=== PATIENT | female | born 1985 | race Hispanic/Latino ===

== ENCOUNTER 2019-01-22 19:31 | Emergency (ER) | payer SELFPAY ==
--- OUTSIDE RECORDS SUMMARY | 2019-01-22 19:33 | XMS REPORT ---
:1985 [facility] Address [address] [place] [address] Dr. Patel [address] [place] [address] Care Team Providers Name Role Phone Unavailable Unavailable Unavailable Problems This patient has no known problems. Allergies, Adverse Reactions, Alerts This patient has no known allergies or adverse reactions. Medications This patient has no known medications.
[2019-01-22 21:54] LABS: Absolute Lymphocytes (CBC) 1.1 K/uL (0.7-4.9); Absolute Monocytes 0.6 K/uL (0.1-1.3); Absolute Neutrophil 8.3 K/uL (1.8-8.0); Basophils % 0.4 % (0-1.3); Eosinophils % 0.3 % (0-4.4); Hematocrit 42.5 % (36.0-45.0); Lymphocytes % 10.6 % (15.3-44.8); MPV 9.8 fL (7.6-11.3); Monocytes % 6.2 % (3.3-12.3)
[2019-01-22] MEDS ORDERED: NA CHLORIDE 0.9% 1,000 ML ONE (22:01)
[2019-01-22 22:06] LABS: Urine Blood 1+ (NEG); Urine Glucose NEGATIVE (NEG); Urine Protein TRACE (NEG); Urine Specific Gravity 1.025 (1.005-1.030); Urine pH 5.5 (5.0-7.0)
[2019-01-22 22:10] LABS: Potassium 3.5 mmol/L (3.5-5.1)
[2019-01-22 22:54] LABS: Urine Bacteria 20-50 /HPF (<20); Urine Culture Reflex Order REFLEXED; Urine Mucus MOD /HPF (NONE SEEN)
--- NOTE | 2019-01-22 23:16 | EDPHYS ---
Physician Documentation [facility] Name: Tiffanie Goldman Age: 33 yrs Sex: Female : 1985 Arrival Date: 01/22/2019 Time: 19:36 Bed 5 Private MD: ED Physician Mk Griffin HPI: 01/23 01:07 This 33 yrs old Female presents to ER via Ambulatory with complaints of Flank kb Pain, Nausea, Pain in back of head. 01:07 The patient complains of pain in the left flank. The pain does not radiate. Modifying kb factors: The symptoms are alleviated by nothing. the symptoms are aggravated by nothing. 01:07 Onset: The symptoms/episode began/occurred yesterday. Associated signs and symptoms: kb Pertinent positives: dysuria. Severity of pain: At its worst the pain was moderate in the emergency department the pain is unchanged. The patient has not experienced similar symptoms in the past. The patient has not recently seen a physician. 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 - Social history:: Smoking status: Patient/guardian denies using tobacco. - Ebola Screening: : Patient denies travel to an Ebola-affected area in the 21 days before illness onset. ROS: 01/23 01:05 ENT: Negative for injury, pain, and discharge, Neck: Negative for injury, pain, and kb swelling, Cardiovascular: Negative for chest pain, palpitations, and edema, Respiratory: Negative for shortness of breath, cough, wheezing, and pleuritic chest pain, Abdomen/GI: Negative for abdominal pain, nausea, vomiting, diarrhea, and constipation, MS/Extremity: Negative for injury and deformity, Skin: Negative for injury, rash, and discoloration, Neuro: Negative for headache, weakness, numbness, tingling, and seizure. Constitutional: Positive for body aches, malaise. : Positive for urinary symptoms, flank pain, burning with urination. Exam: 01:06 Constitutional: This is a well developed, well nourished patient who is awake, alert, kb and in no acute distress. Head/Face: Normocephalic, atraumatic. ENT: Nares patent. No nasal discharge, no septal abnormalities noted. Tympanic membranes are normal and external auditory canals are clear. Oropharynx with no redness, swelling, or masses, exudates, or evidence of obstruction, uvula midline. Mucous membranes moist. Neck: Trachea midline, no thyromegaly or masses palpated, and no cervical lymphadenopathy. Supple, full range of motion without nuchal rigidity, or vertebral point tenderness. No Meningismus. Chest/axilla: Normal chest wall appearance and motion. Nontender with no deformity. No lesions are appreciated. Cardiovascular: Regular rate and rhythm with a normal S1 and S2. No gallops, murmurs, or rubs. Normal PMI, no JVD. No pulse deficits. Respiratory: Lungs have equal breath sounds bilaterally, clear to auscultation and percussion. No rales, rhonchi or wheezes noted. No increased work of breathing, no retractions or nasal flaring. Abdomen/GI: Soft, non-tender, with normal bowel sounds. No distension or tympany. No guarding or rebound. No evidence of tenderness throughout. Skin: Warm, dry with normal turgor. Normal color with no rashes, no lesions, and no evidence of cellulitis. MS/ Extremity: Pulses equal, no cyanosis. Neurovascular intact. Full, normal range of motion. Neuro: Awake and alert, GCS 15, oriented to person, place, time, and situation. Cranial nerves II-XII grossly intact. Motor strength 5/5 in all extremities. Sensory grossly intact. Cerebellar exam normal. Normal gait. Vital Signs: 01/22 20:04 BP 139 / 89; Pulse 118; Resp 20; Temp 98.3; Pulse Ox 99% on R/A; Weight 57.61 kg; aj1 Height 5 ft. 7 in. (170.18 cm); 22:17 BP 110 / 88; Pulse 77; Resp 18; Pulse Ox 100% on R/A; tl2 23:13 BP 110 / 76; Pulse 82; Resp 18; Pulse Ox 100% on R/A; tl2 23:39 Temp 98.4(O); Pain 0/10; tl1 20:04 Body Mass Index 19.89 (57.61 kg, 170.18 cm) aj1 MDM: 21:31 Patient medically screened. kb 01/23 01:06 Data reviewed: vital signs, nurses notes. Data interpreted: Pulse oximetry: on room air kb is 100 %. Interpretation: normal. 01:06 Counseling: I had a detailed discussion with the patient and/or guardian regarding: the kb historical points, exam findings, and any diagnostic results supporting the discharge/admit diagnosis, lab results, the need for outpatient follow up, a family practitioner, to return to the emergency department if symptoms worsen or persist or if there are any questions or concerns that arise at home. 01/22 21:40 Order name: CBC with Diff; Complete Time: 22:05 kb 01/22 21:40 Order name: Basic Metabolic Panel; Complete Time: 22:13 kb 01/22 21:40 Order name: [place] Screen Profile; Complete Time: 22:13 kb 01/22 21:40 Order name: Flu; Complete Time: 22:13 kb 01/22 22:01 Order name: Urine Dipstick--Ancillary (enter results); Complete Time: 22:07 mw2 01/22 22:01 Order name: Urine --Ancillary (enter results); Complete Time: 22:07 mw2 01/22 21:40 Order name: IV Start; Complete Time: 21:51 kb 01/22 22:13 Order name: Urine Microscopic Only; Complete Time: 22:55 kb 01/22 22:56 Order name: Urine Culture EDMS Administered Medications: 01/22 21:51 Drug: NS 0.9% 1000 ml Route: IV; Rate: 1000 ml; Site: right antecubital; tl1 23:16 Follow up: IV Status: Completed infusion tl1 23:19 Drug: Macrobid 100 mg Route: PO; tl1 23:41 Follow up: Response: No adverse reaction; Medication administered at discharge. tl1 Disposition: 01/23 02:10 Co-signature as Attending Physician, Mk Griffin MD. Disposition: 01/22/19 23:15 Discharged to Home. Impression: Urinary tract infection, site not specified. - Condition is Stable. - Discharge Instructions: Urinary Tract Infection, Adult, [id number]. - Prescriptions for Macrobid 100 mg Oral Capsule - take 1 capsule by ORAL route every 12 hours for 7 days; 14 capsule. Zofran 4 mg Oral Tablet - take 1 tablet by ORAL route every 6 hours As needed; 20 tablet. - Medication Reconciliation Form, Thank You Letter, Antibiotic Education, Prescription Opioid Use form. - Follow up: Emergency Department; When: As needed; Reason: Worsening of condition. Follow up: Private Physician; When: 2 - 3 days; Reason: Recheck today's complaints, Continuance of care, Re-evaluation by your physician. Signatures: Dispatcher [employer] EDAnne Odell, ALLISON CHOU-Viola Stanford, RN RN aj1 Beatriz Diamond RN RN tl1 Mk Griffin MD MD gs Corrections: (The following items were deleted from the chart) 01/22 23:42 23:15 01/22/2019 23:15 Discharged to Home. Impression: Urinary tract infection, site tl1 not specified. Condition is Stable. Forms are Medication Reconciliation Form, Thank You Letter, Antibiotic Education, Prescription Opioid Use. Follow up: Emergency Department; When: As needed; Reason: Worsening of condition. Follow up: Private Physician; When: 2 - 3 days; Reason: Recheck today's complaints, Continuance of care, Re-evaluation by your physician. cody 01/23 01:07 01:05 : Positive for urinary symptoms, burning with urination, [facility]
--- NOTE | 2019-01-22 23:16 | ER ---
Nurse's Notes [facility] Name: Tiffanie Goldman Age: 33 yrs Sex: Female : 1985 Arrival Date: 01/22/2019 Time: 19:36 Bed 5 Private MD: Diagnosis: Urinary tract infection, site not specified Presentation: 01/22 20:01 Presenting complaint: Patient states: "I have a sharp pain in the back of my neck and aj1 my shoulders feel heavy and I feel weak, and I have a small pain on my left side. It started yesterday but I was sitting out a ticket" Denies V/D/ Reports nausea. Denies fever. Patient also reports that her chest "feels weird" BP sitting 139/899 Pulse 118 BP standing 122/81 Pulse 136. Transition of care: patient was not received from another setting of care. Onset of symptoms was January 21, 2019. Risk Assessment: Do you want to hurt yourself or someone else? Patient reports no desire to harm self or others. Initial Sepsis Screen: Does the patient meet any 2 criteria? No. Patient's initial sepsis screen is negative. Does the patient have a suspected source of infection? No. Patient's initial sepsis screen is negative. Care prior to arrival: None. 20:01 Method Of Arrival: Ambulatory aj1 20:01 Acuity: ISH 3 aj1 Triage Assessment: 20:04 General: Appears in no apparent distress. uncomfortable, Behavior is calm, cooperative, aj1 appropriate for age. Pain: Complains of pain in left trapezius, right trapezius, posterior aspect of left lateral abdomen and neck Pain currently is 8 out of 10 on a pain scale. Neuro: Level of Consciousness is awake, alert, obeys commands, Oriented to person, place, time, situation. Cardiovascular: Denies chest pain, but states that her chest feels weird Patient's skin is warm and dry. Respiratory: Airway is patent Respiratory effort is even, unlabored, Respiratory pattern is regular, symmetrical. GI: Reports nausea, Patient currently denies diarrhea, vomiting. [employer] FORMER: 20:04 LMP 01/12/2019 aj1 Historical: - Allergies: 20:04 No Known Allergies; aj1 - Home Meds: 20:04 None [Active]; aj1 - PMHx: 20:04 None; aj1 - PSHx: 20:04 None; aj1 - Immunization history:: Flu vaccine is not up to date. - Social history:: Smoking status: Patient/guardian denies using tobacco. - Ebola Screening: : Patient denies travel to an Ebola-affected area in the 21 days before illness onset. Screenin:56 Abuse screen: Denies threats or abuse. Denies injuries from another. Nutritional tl1 screening: No deficits noted. Tuberculosis screening: No symptoms or risk factors identified. Fall Risk IV access (20 points). Assessment: 22:54 General: Appears in no apparent distress. Behavior is calm, cooperative, appropriate tl1 for age. Pain: Denies pain. Neuro: No deficits noted. Level of Consciousness is awake, alert, obeys commands. Neuro: Reports headache occipital area. Cardiovascular: No deficits noted. Respiratory: Airway is patent Trachea midline Respiratory effort is even, unlabored, Breath sounds are clear bilaterally. GI: Abdomen is flat, Bowel sounds present X 4 quads. Abd is soft and non tender X 4 quads. Reports nausea. 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 EENT: No signs and/or symptoms were reported regarding the EENT system. Derm: No signs and/or symptoms reported regarding the dermatologic system. 23:39 Reassessment: Patient and/or family updated on plan of care and expected duration. Pain tl1 level reassessed. Patient is alert, oriented x 3, equal unlabored respirations, skin warm/dry/pink. Patient states feeling better. Patient states symptoms have improved. Vital Signs: 20:04 BP 139 / 89; Pulse 118; Resp 20; Temp 98.3; Pulse Ox 99% on R/A; Weight 57.61 kg; aj1 Height 5 ft. 7 in. (170.18 cm); 22:17 BP 110 / 88; Pulse 77; Resp 18; Pulse Ox 100% on R/A; tl2 23:13 BP 110 / 76; Pulse 82; Resp 18; Pulse Ox 100% on R/A; tl2 23:39 Temp 98.4(O); Pain 0/10; tl1 20:04 Body Mass Index 19.89 (57.61 kg, 170.18 cm) aj1 ED Course: 19:36 Patient arrived in ED. es 20:04 Triage completed. aj1 20:04 Arm band placed on. aj1 20:10 Placed in gown. Bed in low position. Call light in reach. Side rails up X 1. tl1 21:29 Beatriz Diamond, RN is Primary Nurse. tl1 21:30 [facility] Vegas [facility]C [facility]. kb 21:30 Mk Griffin MD is Attending Physician. kb 21:51 No provider procedures requiring assistance completed. Inserted saline lock: 22 gauge tl1 in right antecubital area, using aseptic technique. Blood collected. 23:40 IV discontinued, intact, bleeding controlled, No redness/swelling at site. Pressure tl1 dressing applied. Administered Medications: 21:51 Drug: NS 0.9% 1000 ml Route: IV; Rate: 1000 ml; Site: right antecubital; tl1 23:16 Follow up: IV Status: Completed infusion tl1 23:19 Drug: Macrobid 100 mg Route: PO; tl1 23:41 Follow up: Response: No adverse reaction; Medication administered at discharge. tl1 Outcome: 23:15 Discharge ordered by . kb 23:40 Discharged to home ambulatory, with family. tl1 23:40 Condition: good 23:40 Discharge instructions given to patient, family, Instructed on discharge instructions, follow up and referral plans. medication usage, Demonstrated understanding of instructions, follow-up care, medications, Prescriptions given X 2. 23:42 Patient left the ED. tl1 Signatures: Anne Vegas FNP-C FNP-Ckb Johnson, Angela, RN RN aj1 Claudia Martinez Tonya, RN RN tl1 Kaitlynn Duke RN RN tl2 Corrections: (The following items were deleted from the chart) 20:13 20:01 Presenting complaint: Patient states: "I have a sharp pain in the back of my neck aj1 and my shoulders feel heavy and I feel weak, and I have a small pain on my left side. It started yesterday but I was sitting out a ticket" Denies V/D/ Reports nausea. Denies fever. Patient also reports that her chest "feels weird" aj1
[2019-01-22] MEDS ORDERED: NITROFURAN MACRO 100 MG CAP PO ONE (23:30)
--- NOTE | 2019-01-23 08:35 | EKG ---
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
== END 2019-01-22 23:42 | disposition home or self-care (01) ==
LOC: ER 19:31
DX: N39.0 Urinary tract infection, site not specified (principal)
CPT/HCPCS: 36415; 80048; 81003; 81015; 81025; 85025; 86308; 87077; 87086; 87088; 87186; 87804; 93005; 96360; 99284; J7030

== ENCOUNTER 2019-08-25 10:07 | Emergency (ER) | payer SELFPAY ==
--- OUTSIDE RECORDS SUMMARY | 2019-08-25 10:09 | XMS REPORT ---
:1985 [facility] Address [address] [place] [address] Dr. Patel [address] [place] [id number] Care Team Providers Name Role Phone Unavailable Unavailable Unavailable Problems This patient has no known problems. Allergies, Adverse Reactions, Alerts This patient has no known allergies or adverse reactions. Medications This patient has no known medications.
--- NOTE | 2019-08-25 12:02 | ER ---
Nurse's Notes [facility] Name: Tiffanie Goldman Age: 34 yrs Sex: Female : 1985 Arrival Date: 08/25/2019 Time: 10:11 Bed 12 Private MD: Diagnosis: Acute upper respiratory infection, unspecified Presentation: 08/25 10:30 Presenting complaint: Patient states: Fever cough and congestion for the past week. aj1 Reports symptoms are worse at night. Transition of care: patient was not received from another setting of care. Onset of symptoms was 2018. Risk Assessment: Do you want to hurt yourself or someone else? Patient reports no desire to harm self or others. Initial Sepsis Screen: Does the patient meet any 2 criteria? No. Patient's initial sepsis screen is negative. Does the patient have a suspected source of infection? No. Patient's initial sepsis screen is negative. Care prior to arrival: None. 10:30 Method Of Arrival: Ambulatory aj1 10:30 Acuity: ISH 4 aj1 Triage Assessment: 10:30 General: Appears in no apparent distress. comfortable, Behavior is calm, cooperative, aj1 appropriate for age. Pain: Denies pain. Neuro: Level of Consciousness is awake, alert, obeys commands. Cardiovascular: Patient's skin is warm and dry. Respiratory: Airway is patent Respiratory effort is even, unlabored, Respiratory pattern is regular, symmetrical. Historical: - Allergies: 10:30 No Known Allergies; aj1 - Home Meds: 10:30 None [Active]; aj1 - PMHx: 10:30 None; aj1 - PSHx: 10:30 None; aj1 - Immunization history:: Flu vaccine is not up to date. - Social history:: Smoking status: Patient uses tobacco products, denies chronic smoking, but will smoke occasionally. - Ebola Screening: : Patient denies travel to an Ebola-affected area in the 21 days before illness onset. - Family history:: not pertinent. Vital Signs: 10:30 BP 113 / 76; Pulse 70; Resp 16; Temp 97.9; Pulse Ox 99% on R/A; Weight 59.87 kg (R); aj1 Height 5 ft. 3 in. (160.02 cm) (R); Pain 0/10; 10:30 Body Mass Index 23.38 (59.87 kg, 160.02 cm) aj1 ED Course: 10:11 Patient arrived in ED. as 10:30 Triage completed. aj1 10:30 Arm band placed on Patient placed in waiting room, Patient notified of wait time. aj 10:43 Mark Disla MD is Attending Physician. alexandra 11:29 Rachelle Diaz, RN is Primary Nurse. ss 12:23 No provider procedures requiring assistance completed. Patient did not have IV access ss during this emergency room visit. Administered Medications: No medications were administered Outcome: 12:01 Discharge ordered by . alexandra 12:23 Discharged to home ambulatory, with family. ss 12:23 Condition: good 12:23 Discharge instructions given to patient, family, Instructed on discharge instructions, follow up and referral plans. medication usage, Demonstrated understanding of instructions, follow-up care, medications, Prescriptions given X 2. 12:24 Patient left the ED. ss Signatures: Viola Sullivan, RN RN aj1 Mark Disla MD MD cha Martinez, Amelia as Rachelle Diaz, ZINA RN ss
--- NOTE | 2019-08-25 12:03 | EDPHYS ---
Physician Documentation [facility] Name: Tiffanie Goldman Age: 34 yrs Sex: Female : 1985 Arrival Date: 08/25/2019 Time: 10:11 Bed 12 Private MD: SUKHI Physician Mark Disla HPI: 08/25 11:59 This 34 yrs old Female presents to ER via Ambulatory with complaints of Cold alexandra Symptoms. 11:59 The patient has shortness of breath at rest, with light activity. Onset: The alexandra symptoms/episode began/occurred 5 day(s) ago. Duration: The symptoms are continuous, and are steadily getting worse. The patient's shortness of breath has no apparent modifying factors. The patient or guardian reports cough, described as mild, flu symptoms, arthralgias. Modifying factors: The symptoms are alleviated by nothing. the symptoms are aggravated by nothing. Associated signs and symptoms: The patient has no apparent associated signs or symptoms. Historical: - Allergies: 10:30 No Known Allergies; aj1 - Home Meds: 10:30 None [Active]; aj1 - PMHx: 10:30 None; aj1 - PSHx: 10:30 None; aj1 - Immunization history:: Flu vaccine is not up to date. - Social history:: Smoking status: Patient uses tobacco products, denies chronic smoking, but will smoke occasionally. - Ebola Screening: : Patient denies travel to an Ebola-affected area in the 21 days before illness onset. - Family history:: not pertinent. ROS: 11:59 Constitutional: Negative for fever, chills, and weight loss, Eyes: Negative for injury, alexandra pain, redness, and discharge, ENT: Negative for injury, pain, and discharge, Neck: Negative for injury, pain, and swelling, Cardiovascular: Negative for chest pain, palpitations, and edema, Abdomen/GI: Negative for abdominal pain, nausea, vomiting, diarrhea, and constipation, Back: Negative for injury and pain, : Negative for injury, bleeding, discharge, and swelling, MS/Extremity: Negative for injury and deformity, Skin: Negative for injury, rash, and discoloration, Neuro: Negative for headache, weakness, numbness, tingling, and seizure, Psych: Negative for depression, anxiety, suicide ideation, homicidal ideation, and hallucinations, Allergy/Immunology: Negative for hives, rash, and allergies, Endocrine: Negative for neck swelling, polydipsia, polyuria, polyphagia, and marked weight changes, Hematologic/Lymphatic: Negative for swollen nodes, abnormal bleeding, and unusual bruising. 11:59 Respiratory: Positive for cough, shortness of breath, at rest. Exam: 11:59 Constitutional: This is a well developed, well nourished patient who is awake, alert, alexandra and in no acute distress. Head/Face: Normocephalic, atraumatic. Eyes: Pupils equal round and reactive to light, extra-ocular motions intact. Lids and lashes normal. Conjunctiva and sclera are non-icteric and not injected. Cornea within normal limits. Periorbital areas with no swelling, redness, or edema. ENT: Nares patent. No nasal discharge, no septal abnormalities noted. Tympanic membranes are normal and external auditory canals are clear. Oropharynx with no redness, swelling, or masses, exudates, or evidence of obstruction, uvula midline. Mucous membranes moist. Neck: Trachea midline, no thyromegaly or masses palpated, and no cervical lymphadenopathy. Supple, full range of motion without nuchal rigidity, or vertebral point tenderness. No Meningismus. Chest/axilla: Normal chest wall appearance and motion. Nontender with no deformity. No lesions are appreciated. Cardiovascular: Regular rate and rhythm with a normal S1 and S2. No gallops, murmurs, or rubs. Normal PMI, no JVD. No pulse deficits. Respiratory: Lungs have equal breath sounds bilaterally, clear to auscultation and percussion. No rales, rhonchi or wheezes noted. No increased work of breathing, no retractions or nasal flaring. Abdomen/GI: Soft, non-tender, with normal bowel sounds. No distension or tympany. No guarding or rebound. No evidence of tenderness throughout. Back: No spinal tenderness. No costovertebral tenderness. Full range of motion. Skin: Warm, dry with normal turgor. Normal color with no rashes, no lesions, and no evidence of cellulitis. MS/ Extremity: Pulses equal, no cyanosis. Neurovascular intact. Full, normal range of motion. Neuro: Awake and alert, GCS 15, oriented to person, place, time, and situation. Cranial nerves II-XII grossly intact. Motor strength 5/5 in all extremities. Sensory grossly intact. Cerebellar exam normal. Normal gait. Psych: Awake, alert, with orientation to person, place and time. Behavior, mood, and affect are within normal limits. 11:59 Musculoskeletal/extremity: DVT Exam: No signs of deep vein thrombosis. no pain, no swelling, no tenderness, negative Homans' sign noted on exam, no appreciated bluish discoloration, no erythema, no increased warmth. Vital Signs: 10:30 BP 113 / 76; Pulse 70; Resp 16; Temp 97.9; Pulse Ox 99% on R/A; Weight 59.87 kg (R); aj1 Height 5 ft. 3 in. (160.02 cm) (R); Pain 0/10; 10:30 Body Mass Index 23.38 (59.87 kg, 160.02 cm) aj1 MDM: 11:07 Patient medically screened. alexandra Administered Medications: No medications were administered Disposition: 08/25/19 12:01 Discharged to Home. Impression: Acute upper respiratory infection, unspecified. - Condition is Stable. - Discharge Instructions: Upper Respiratory Infection, Adult, Cool Mist Vaporizer, Cough, Adult. - Prescriptions for Bromfed DM 2- 30-10 mg/5 mL Oral syrup - take 10 milliliter by ORAL route every 4 hours; 150 milliliter. Zithromax Z- Juan 250 mg Oral Tablet - take 1 tablet by ORAL route as directed for 5 days Day 1 - take two (2) tablets one time. Day 2, 3, 4 , 5 take one (1) tablet once daily.; 6 tablet. - Medication Reconciliation Form, Thank You Letter, Antibiotic Education, Prescription Opioid Use form. - Follow up: Private Physician; When: 2 - 3 days; Reason: Recheck today's complaints, Continuance of care, Re-evaluation by your physician. - Problem is new. - Symptoms have improved. Signatures: Viola Sullivan RN RN aj1 Mark Disla MD MD cha Smirch, Shelby, RN RN ss Corrections: (The following items were deleted from the chart) 12:24 12:01 08/25/2019 12:01 Discharged to Home. Impression: Acute upper respiratory ss infection, unspecified. Condition is Stable. Forms are Medication Reconciliation Form, Thank You Letter, Antibiotic Education, Prescription Opioid Use. Follow up: Private Physician; When: 2 - 3 days; Reason: Recheck today's complaints, Continuance of care, Re-evaluation by your physician. Problem is new. Symptoms have improved. alexandra
[2019-08-25 12:45] VITALS: BP 113/76; TEMP 97.9; O2SAT 99
== END 2019-08-25 12:24 | disposition home or self-care (01) ==
LOC: ER 10:07
DX: J06.9 Acute upper respiratory infection, unspecified (principal); Z72.0 Tobacco use
CPT/HCPCS: 99282

== ENCOUNTER 2019-11-28 10:38 | Emergency (ER) | payer SELFPAY ==
--- OUTSIDE RECORDS SUMMARY | 2019-11-28 10:40 | XMS REPORT ---
:1985 [facility] Address [address] [place] [address] Dr. Patel [address] [place] [address] Care Team Providers Name Role Phone Unavailable Unavailable Unavailable Problems This patient has no known problems. Allergies, Adverse Reactions, Alerts This patient has no known allergies or adverse reactions. Medications This patient has no known medications.
[2019-11-28] MEDS ORDERED: ONDANSETRON 4 MG (ODT) TAB ONE (11:20)
--- NOTE | 2019-11-28 12:27 | EDPHYS ---
Physician Documentation [facility] Name: Tiffanie Goldman Age: 34 yrs Sex: Female : 1985 Arrival Date: 11/28/2019 Time: 10:41 Bed 5 Private MD: ED Physician Enrique Saleh HPI: 11/27 11:07 This 34 yrs old Female presents to ER via Ambulatory with complaints of Cough, la1 Nausea. 11:07 The patient or guardian reports cough, that is intermittent, described as mild, flu la1 symptoms, low-grade fever. Onset: The symptoms/episode began/occurred 2 day(s) ago. Severity of symptoms: At their worst the symptoms were moderate, in the emergency department the symptoms have improved. Modifying factors: The symptoms are alleviated by nothing, the symptoms are aggravated by nothing. Associated signs and symptoms: Pertinent positives: nausea. The patient has not experienced similar symptoms in the past. 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 - Social history:: Smoking status: Patient reports the use of cigarette tobacco products, denies chronic smoking, but will smoke occasionally. ROS: 11:07 Constitutional: Negative for fever, chills, and weight loss, Eyes: Negative for injury, la1 pain, redness, and discharge, ENT: Negative for injury, pain, and discharge, Neck: Negative for injury, pain, and swelling, Cardiovascular: Negative for chest pain, palpitations, and edema, Abdomen/GI: Negative for abdominal pain, nausea, vomiting, diarrhea, and constipation, Back: Negative for injury and pain, MS/Extremity: Negative for injury and deformity. 11:07 Skin: Negative for injury, rash, and discoloration, Neuro: Negative for headache, weakness, numbness, tingling, and seizure. 11:07 Respiratory: Positive for cough. Exam: 11:08 Constitutional: This is a well developed, well nourished patient who is awake, alert, la1 and in no acute distress. Head/Face: Normocephalic, atraumatic. Eyes: Pupils equal round and reactive to light, extra-ocular motions intact. ENT: Nares patent. No nasal discharge, no septal abnormalities noted. Tympanic membranes are normal and external auditory canals are clear. Oropharynx with no redness, swelling, or masses, exudates, or evidence of obstruction, uvula midline. Mucous membranes moist. Neck: Trachea midline, Chest/axilla: Normal chest wall appearance and motion. Nontender with no deformity. No lesions are appreciated. Cardiovascular: Regular rate and rhythm with a normal S1 and S2. Respiratory: Lungs have equal breath sounds bilaterally, clear to auscultation and percussion. Abdomen/GI: Soft, non-tender, with normal bowel sounds. Skin: Warm, dry with normal turgor. Normal color with no rashes, no lesions, and no evidence of cellulitis. MS/ Extremity: Pulses equal, no cyanosis. Neurovascular intact. Full, normal range of motion. Vital Signs: 10:50 BP 124 / 88; Pulse 83; Resp 16; Temp 98.2; Pulse Ox 99% ; Weight 61.23 kg; Height 5 ft. sv 3 in. (160.02 cm); Pain 0/10; 12:50 BP 103 / 82; Pulse 66; Resp 16 S; Pulse Ox 99% on R/A; jl7 10:50 Body Mass Index 23.91 (61.23 kg, 160.02 cm) sv MDM: 11:06 Patient medically screened. la1 12:26 Data reviewed: vital signs, nurses notes, lab test result(s), and as a result, I will la1 discharge patient. Data interpreted: Pulse oximetry: on room air is 99 %. Interpretation: normal. Counseling: I had a detailed discussion with the patient and/or guardian regarding: the historical points, exam findings, and any diagnostic results supporting the discharge/admit diagnosis, lab results, the need for outpatient follow up, a family practitioner, to return to the emergency department if symptoms worsen or persist or if there are any questions or concerns that arise at home. Special discussion: I discussed with the patient/guardian that the patient's current presentation does not indicate dosing of antibiotics. They should follow-up with their primary care provider and return if the symptoms persist or progress. 11/27 10:52 Order name: Flu jl7 11/27 10:52 Order name: Strep jl7 11/27 11:03 Order name: PO challenge; Complete Time: 12:44 la1 11/27 11:20 Order name: Throat Culture EDNM Administered Medications: 11:21 Drug: Zofran (Ondansetron) 4 mg Route: PO; sv 12:00 Follow up: Response: No adverse reaction; Nausea is decreased sv Disposition: 18:00 Co-signature as Attending Physician, Enrique Saleh MD I agree with the assessment and kdr plan of care. Disposition: 11/28/19 12:26 Discharged to Home. Impression: Cough, Nausea. - Condition is Stable. - Discharge Instructions: Nausea, Adult, Cough, Adult. - Prescriptions for Zofran 4 mg Oral Tablet - take 1 tablet by ORAL route every 12 hours As needed; 6 tablet. Tessalon Perles 100 mg Oral Capsule - take 1 capsule by ORAL route every 8 hours As needed; 15 capsule. - Medication Reconciliation Form, Thank You Letter form. - Follow up: Private Physician; When: 5 - 6 days; Reason: Recheck today's complaints, Re-evaluation by your physician. - Problem is new. - Symptoms have improved. Signatures: Dispatcher [employer] EDNM Rina Pires RN RN Enrique Pinto MD MD kdr Lizandro De La Garza, CYBER SECURITY ADMINISTRATOR-C CYBER SECURITY ADMINISTRATOR-Cla1 Calista Guy RN RN jl7 Corrections: (The following items were deleted from the chart) 12:51 12:26 11/28/2019 12:26 Discharged to Home. Impression: Cough; Nausea. Condition is jl7 Stable. Forms are Medication Reconciliation Form, Thank You Letter, Antibiotic Education, Prescription Opioid Use. Follow up: Private Physician; When: 5 - 6 days; Reason: Recheck today's complaints, Re-evaluation by your physician. Problem is new. Symptoms have improved. la1
--- NOTE | 2019-11-28 12:27 | ER ---
Nurse's Notes [facility] Name: Tiffanie Goldman Age: 34 yrs Sex: Female : 1985 Arrival Date: 11/28/2019 Time: 10:41 Bed 5 Private MD: Diagnosis: Cough;Nausea Presentation: 11/27 10:50 Chief complaint: Patient states: runny nose, productive cough with green sputum, chest sv pain with cough, SOB, generalized weakness, body aches x 2 days. Reports last night felt like she was shaking and sweating and felt like she was going to vomit but did not. Coronavirus screen: The patient has NOT traveled to a country currently being monitored by the [facility] within the last 14 days. Proceed with normal triage procedures. The patient has NOT had contact with any known and/or suspected case of coronavirus. Proceed with normal triage procedures. Ebola Screen: Patient negative for fever greater than or equal to 101.5 degrees Fahrenheit, and additional compatible Ebola Virus Disease symptoms Patient denies exposure to infectious person. Patient denies travel to an Ebola-affected area in the 21 days before illness onset. No symptoms or risks identified at this time. Initial Sepsis Screen: Does the patient meet any 2 criteria? No. Patient's initial sepsis screen is negative. Does the patient have a suspected source of infection? Yes: Productive cough/pneumonia. Risk Assessment: Do you want to hurt yourself or someone else? Patient reports no desire to harm self or others. 10:50 Method Of Arrival: Ambulatory sv 10:50 Acuity: ISH 3 sv 10:53 Onset of symptoms was November 26, 2019. sv Triage Assessment: 10:50 General: Appears in no apparent distress. uncomfortable, well developed, Behavior is sv calm, cooperative, appropriate for age. General: Reports fever for 2-3 days. Pain: Denies pain. EENT: Reports nasal discharge that is watery. Neuro: Level of Consciousness is awake, alert, obeys commands, Oriented to person, place, time, situation, Moves all extremities. Full function Gait is steady, Speech is normal, Reports weakness. Cardiovascular: Patient's skin is warm and dry. Respiratory: Reports cough that is productive, pain with cough Airway is patent Respiratory effort is even, unlabored, Respiratory pattern is regular, symmetrical. GI: Reports nausea. Derm: Skin is pink, warm \T\ dry. 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 - Social history:: Smoking status: Patient reports the use of cigarette tobacco products, denies chronic smoking, but will smoke occasionally. Screenin:53 Abuse screen: Denies threats or abuse. Denies injuries from another. Nutritional sv screening: No deficits noted. Tuberculosis screening: No symptoms or risk factors identified. Fall Risk None identified. Assessment: 11:21 Reassessment: Patient appears in no apparent distress at this time. No changes from sv previously documented assessment. Patient and/or family updated on plan of care and expected duration. Pain level reassessed. Patient is alert, oriented x 3, equal unlabored respirations, skin warm/dry/pink. 12:49 Reassessment: Patient appears in no apparent distress at this time. Patient and/or sv family updated on plan of care and expected duration. Pain level reassessed. Patient is alert, oriented x 3, equal unlabored respirations, skin warm/dry/pink. Patient states feeling better. Patient states symptoms have improved. Vital Signs: 10:50 BP 124 / 88; Pulse 83; Resp 16; Temp 98.2; Pulse Ox 99% ; Weight 61.23 kg; Height 5 ft. sv 3 in. (160.02 cm); Pain 0/10; 12:50 BP 103 / 82; Pulse 66; Resp 16 S; Pulse Ox 99% on R/A; jl7 10:50 Body Mass Index 23.91 (61.23 kg, 160.02 cm) sv ED Course: 10:41 Patient arrived in ED. mr 10:44 Rina Pires RN is Primary Nurse. sv 10:47 Lizandro De La Garza FNP-C is PHCP. la1 10:47 Enrique Saleh MD is Attending Physician. la1 10:52 Triage completed. sv 10:53 Arm band placed on Patient placed in an exam room, on a stretcher. sv 10:53 Patient has correct armband on for positive identification. Bed in low position. Call sv light in reach. Adult w/ patient. Pulse ox on. NIBP on. Door closed. Head of bed elevated. 10:55 Flu and/or RSV swab sent to lab. Strep swab sent to lab. sv 11:20 Throat Culture Sent. sv 12:49 No provider procedures requiring assistance completed. Patient did not have IV access jl7 during this emergency room visit. Administered Medications: 11:21 Drug: Zofran (Ondansetron) 4 mg Route: PO; sv 12:00 Follow up: Response: No adverse reaction; Nausea is decreased sv Outcome: 12:26 Discharge ordered by . yasmeen 12:49 Discharged to home ambulatory. jl7 12:49 Condition: stable 12:49 Discharge instructions given to patient, family, Instructed on discharge instructions, follow up and referral plans. medication usage, Demonstrated understanding of instructions, follow-up care, medications, Prescriptions given X 2. 12:51 Patient left the ED. jl7 Signatures: Rina Pires, ZINA IZAGUIRRE [facility] Demetria Lizandro Ricci, VP EMERGING MEDIA-C VP EMERGING MEDIA-Cla1 Calista Guy, ZINA RN [email or web address]
[2019-11-28 12:58] VITALS: TEMP 98.2; O2SAT 99
[2019-11-28 13:00] VITALS: BP 103/82
== END 2019-11-28 12:51 | disposition home or self-care (01) ==
LOC: ER 10:38
DX: R11.0 Nausea (principal); F17.210 Nicotine dependence, cigarettes, uncomplicated
CPT/HCPCS: 87070; 87081; 87804; 99284

== ENCOUNTER 2020-03-10 12:02 | Emergency (ER) | payer SELFPAY, OTHER ==
[2020-03-10] MEDS ORDERED: ONDANSETRON 4 MG (ODT) TAB ONE (12:54)
[2020-03-10 13:12] LABS: Urine Blood TRACE (NEG); Urine Glucose NEGATIVE (NEG); Urine Protein NEGATIVE (NEG); Urine Specific Gravity 1.025 (1.005-1.030); Urine pH 6.5 (5.0-7.0)
--- OUTSIDE RECORDS SUMMARY | 2020-03-10 14:30 | XMS REPORT | Continuity of Care Document ---
:1985 Author Organization [facility] t Address [address] [place] [address] Dr. Pat[address] [place] [id number] Care Team Providers Name Role Phone Unavailable Unavailable Unavailable Problems This patient has no known problems. Allergies, Adverse Reactions, Alerts This patient has no known allergies or adverse reactions. Medications This patient has no known medications. Procedures This patient has no known procedures. Results This patient has no known results.
--- NOTE | 2020-03-10 14:44 | ER ---
Nurse's Notes [facility] Name: Tiffanie Goldman Age: 34 yrs Sex: Female : 1985 Arrival Date: 03/10/2020 Time: 12:05 Bed 15 Private MD: None, None Diagnosis: Nausea with vomiting, unspecified Presentation: 03/10 12:29 Chief complaint: Patient states: vomiting and chills that began last night. PT reports ss she was in [facility] ER with her niece last night. Coronavirus screen: Surgical mask placed on patient. Patient moved to private room, placed in contact and droplet isolation with eye protection until further assessment. Patient denies a cough. Patient denies shortness of breath or difficulty breathing. Patient denies measured and/or subjective temperature greater than 100.4F prior to today's visit. Patient denies travel on a cruise ship or to a country the [facility] currently lists as an affected area. Patient denies contact with known and/or suspected case of COVID-19. Ebola Screen: Patient denies exposure to infectious person. Patient denies travel to an Ebola-affected area in the 21 days before illness onset. Initial Sepsis Screen: Does the patient meet any 2 criteria? No. Patient's initial sepsis screen is negative. Does the patient have a suspected source of infection? No. Patient's initial sepsis screen is negative. Risk Assessment: Do you want to hurt yourself or someone else? Patient reports no desire to harm self or others. Onset of symptoms was March 10, 2020. 12:29 Method Of Arrival: Ambulatory ss 12:29 Acuity: ISH 3 ss Historical: - Allergies: 12:32 No Known Allergies; ss - Home Meds: 12:32 None [Active]; ss - PMHx: 12:32 None; ss - PSHx: 12:32 None; ss - Immunization history:: Adult Immunizations up to date. - Social history:: Smoking status: Patient denies any tobacco usage or history of. - Family history:: not pertinent. - Hospitalizations: : No recent hospitalization is reported. Screenin:08 Abuse screen: Denies threats or abuse. Nutritional screening: No deficits noted. ll1 Tuberculosis screening: No symptoms or risk factors identified. Fall Risk None identified. Total Wright Fall Scale indicates No Risk (0-24 pts). Assessment: 13:06 General: Appears in no apparent distress. Behavior is calm, cooperative. Pain: Denies ll1 pain. Neuro: No deficits noted. Cardiovascular: No deficits noted. Respiratory: No deficits noted. GI: Abdomen is flat, Bowel sounds present X 4 quads. Abd is soft and non tender X 4 quads. Reports cramping, nausea, vomiting, chills/sweating. 14:06 Reassessment: Patient and/or family updated on plan of care and expected duration. Pain ah level reassessed. Patient is alert, oriented x 3, equal unlabored respirations, skin warm/dry/pink. Patient states feeling better. 15:02 Reassessment: Discharge instructions given at this time. Educated on prescription. Pt ah voiced understanding. Advised to quarantine until Pt receive test results. Vital Signs: 12:29 BP 111 / 94; Pulse 73; Resp 14; Pulse Ox 100% on R/A; Weight 64.86 kg; Height 5 ft. 5 ss in. (165.10 cm); Pain 0/10; 12:29 Body Mass Index 23.80 (64.86 kg, 165.10 cm) ED Course: 12:05 Patient arrived in ED. mr 12:05 None, None is Private Physician. mr 12:27 Jamie Mccormick, RN is Primary Nurse. ll1 12:31 Edvin Young MD is Attending Physician. rn 12:32 Triage completed. ss 12:32 Arm band placed on right wrist. ss 13:08 Patient has correct armband on for positive identification. Bed in low position. Call ll1 light in reach. Side rails up X 1. 15:03 No provider procedures requiring assistance completed. Patient did not have IV access during this emergency room visit. Administered Medications: 12:58 Drug: Zofran (Ondansetron) 4 mg Route: PO; ll1 14:07 Follow up: Response: No adverse reaction Outcome: 14:44 Discharge ordered by . rn 15:03 Discharged to home ambulatory. 15:03 Condition: good 15:03 Discharge instructions given to patient, Instructed on discharge instructions, follow up and referral plans. Demonstrated understanding of instructions, follow-up care, medications, Prescriptions given X 1. 15:04 Patient left the ED. Addendum: 03/12/2020 11:28 Addendum: Other Attempted to contact pt regarding negative COVID - 19 swab results. d m5 left voice mail. 03/14/2020 11:58 Addendum: Other attempted to contact pt regarding negative COVID-19 swab results. Left d m5 voice mail. Signatures: Abby Stallworth, RN RN dm5 RichardsonDemetria mr Young, MD MD vimal Pardo Shelby, RN RN ss Harris, Amy RN Jamie Dudley, RN RN [facility]
--- NOTE | 2020-03-10 14:44 | EDPHYS ---
Physician Documentation [facility] Name: Tiffanie Goldman Age: 34 yrs Sex: Female : 1985 Arrival Date: 03/10/2020 Time: 12:05 Bed 15 Private MD: None, None ED Physician Edvin Young HPI: 03/10 12:43 This 34 yrs old Female presents to ER via Ambulatory with complaints of rn Vomiting, Chills. 12:43 The patient presents to the emergency department with nausea, vomiting. Onset: The rn symptoms/episode began/occurred yesterday. Possible causes: unknown. The symptoms are aggravated by nothing. The symptoms are alleviated by nothing. Associated signs and symptoms: Pertinent positives: chills and fatigue, + myalgias. Severity of symptoms: At their worst the symptoms were mild in the emergency department the symptoms are unchanged. The patient has not experienced similar symptoms in the past. Reports began yesterday with chills, nausea/vomiting, no known fever or diarrhea. Denies . No abd pain. + myalgias and fatigue. No headache or neck stiffness.. Historical: - Allergies: 12:32 No Known Allergies; ss - Home Meds: 12:32 None [Active]; ss - PMHx: 12:32 None; ss - PSHx: 12:32 None; ss - Immunization history:: Adult Immunizations up to date. - Social history:: Smoking status: Patient denies any tobacco usage or history of. - Family history:: not pertinent. - Hospitalizations: : No recent hospitalization is reported. ROS: 12:43 Constitutional: + chills Eyes: Negative for injury, pain, redness, and discharge, Neck: rn Negative for injury, pain, and swelling, Cardiovascular: Negative for chest pain, palpitations, and edema, Respiratory: Negative for shortness of breath, cough, wheezing, and pleuritic chest pain, Abdomen/GI: Negative for abdominal pain, diarrhea, and constipation, + nausea/vomiting : Negative for injury, bleeding, discharge, and swelling, MS/Extremity: Negative for injury and deformity, Skin: Negative for injury, rash, and discoloration, Neuro: Negative for headache, numbness, tingling, and seizure. Exam: 12:43 Constitutional: This is a well developed, well nourished patient who is awake, alert, rn and in no acute distress. Head/Face: Normocephalic, atraumatic. Neck: Trachea midline, no thyromegaly or masses palpated, and no cervical lymphadenopathy. Supple, full range of motion without nuchal rigidity, or vertebral point tenderness. No Meningismus. Cardiovascular: Regular rate and rhythm. No pulse deficits. Respiratory: Speaking full sentences. No increased work of breathing, no retractions or nasal flaring. Abdomen/GI: soft, non-tender, no rebound/guarding Skin: Warm, dry with normal turgor. Normal color with no rashes, no lesions, and no evidence of cellulitis. MS/ Extremity: Pulses equal, no cyanosis. Neurovascular intact. Full, normal range of motion. Equal circumference. Neuro: Awake and alert, GCS 15 Vital Signs: 12:29 BP 111 / 94; Pulse 73; Resp 14; Pulse Ox 100% on R/A; Weight 64.86 kg; Height 5 ft. 5 ss in. (165.10 cm); Pain 0/10; 12:29 Body Mass Index 23.80 (64.86 kg, 165.10 cm) ss MDM: 12:31 Patient medically screened. rn 14:41 Differential diagnosis: viral gastroenteritis. Data reviewed: vital signs, nurses rn notes, lab test result(s), and as a result, I will discharge patient. Counseling: I had a detailed discussion with the patient and/or guardian regarding: the historical points, exam findings, and any diagnostic results supporting the discharge/admit diagnosis, lab results, the need for outpatient follow up, to return to the emergency department if symptoms worsen or persist or if there are any questions or concerns that arise at home. Special discussion: I discussed with the patient/guardian in detail that at this point there is no indication for admission to the hospital. It is understood, however, that if the symptoms persist or worsen the patient needs to return immediately for re-evaluation. ED course: Flu neg, COVID sent, improved with zofran, will dc home with prn zofran.. 14:44 ED course: Repeat abd exam still benign, no tenderness. . rn 03/10 12:42 Order name: Flu; Complete Time: 14:41 rn 03/10 12:42 Order name: COVID-19 rn 03/10 13:07 Order name: Urine Dipstick--Ancillary (enter results); Complete Time: 13:18 bd 03/10 13:07 Order name: Urine --Ancillary (enter results); Complete Time: 13:18 bd Administered Medications: 12:58 Drug: Zofran (Ondansetron) 4 mg Route: PO; ll1 14:07 Follow up: Response: No adverse reaction ah Disposition: 03/10/20 14:44 Discharged to Home. Impression: Nausea with vomiting, unspecified. - Condition is Stable. - Discharge Instructions: Nausea and Vomiting, Adult. - Prescriptions for Zofran ODT 4 mg Oral tablet,disintegrating - place 1 tablet by TRANSLINGUAL route every 8 hours As needed; 20 tablet. - Medication Reconciliation Form, Thank You Letter, Antibiotic Education, Prescription Opioid Use form. - Follow up: Private Physician; When: As needed; Reason: Recheck today's complaints, Re-evaluation by your physician. - Problem is new. - Symptoms have improved. Signatures: Dispatcher [employer] EDMS Edvin Young MD MD rn Smirch, Shelby, RN RN ss Harris, Amy, RN RN Jamie Salazar RN RN ll1 Corrections: (The following items were deleted from the chart) 15:04 14:44 03/10/2020 14:44 Discharged to Home. Impression: Nausea with vomiting, ah unspecified. Condition is Stable. Forms are Medication Reconciliation Form, Thank You Letter, Antibiotic Education, Prescription Opioid Use. Follow up: Private Physician; When: As needed; Reason: Recheck today's complaints, Re-evaluation by your physician. Problem is new. Symptoms have improved. rn
[2020-03-10 18:20] VITALS: BP 111/94; O2SAT 100
== END 2020-03-10 15:04 | disposition home or self-care (01) ==
LOC: ER 12:02
DX: R11.2 Nausea with vomiting, unspecified (principal); Z20.828 Contact with and (suspected) exposure to other viral communicable diseases
CPT/HCPCS: 81003; 81025; 87804; 99283; U0001

== ENCOUNTER 2020-09-22 13:53 | Emergency (ER) | payer SELFPAY ==
--- OUTSIDE RECORDS SUMMARY | 2020-09-22 13:56 | XMS REPORT | Continuity of Care Document ---
:1985 Author Organization [facility] t Address [address] [place] [address] Care Team Providers Name Role Phone Nai IZAGUIRRE, T Attending Clinician Unavailable Delmis Whelan DO Attending Clinician Doctor Unassigned, Name Attending Clinician Unavailable Problems This patient has no known problems. Allergies, Adverse Reactions, Alerts This patient has no known allergies or adverse reactions. Medications This patient has no known medications. Procedures This patient has no known procedures. Encounters Start End Encounter Admission Attending Care Care Encounter Source Date/Time Date/Time Type Type Clinicians Facility Department ID 2020-04-30 2020-04-30 Letter CELIA Trimble [id number] 00:00:00 00:00:00 (Out) Dania KWON [id number] [place] [id number] 2020-04-27 2020-04-27 Emergency Tip HIKURT [id number] 14:41:00 16:53:00 Karla Cardenas [id number] [place] [id number] [place] [id number] 2020-04-27 2020-04-27 Orders Doctor YANG [id number] 00:00:00 00:00:00 Only UnassignedDOYLE [id number] [place] [id number] Results This patient has no known results.
[2020-09-22] MEDS ORDERED: ACETAMINOPHEN 500 MG TAB ONE (17:52)
--- NOTE | 2020-09-22 18:25 | RAD REPORT ---
EXAM DESCRIPTION: CT - Abdomen Pelvis Wo Contrast - 09/22/2020 6:13 pm CLINICAL HISTORY: Abdominal pain. ABD PAIN COMPARISON: Abdomen Pelvis W Contrast dated 09/17/2016 TECHNIQUE: CT imaging of the abdomen and pelvis was performed without contrast. Solid organ, bowel a nd vascular assessment is limited due to lack of IV and oral contrast. All CT scans are performed using dose optimization technique as appropriate and may include automated exposure control or mA/KV adjustment according to patient size. FINDINGS: The lower lung zhong are clear. The liver, spleen, pancreas, adrenal glands and kidneys are within normal limits for a limited non-co ntrast examination. No bowel obstruction, free air, free fluid or abscess. Small fat containing umbilical hernia. The kirsten endix is normal. The osseous structures are within normal limits. IMPRESSION: No acute intra-abdominal or pelvic findings. A limited non-contrast examination was performed as detailed.
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
== END 2020-09-22 19:14 | disposition home or self-care (01) ==
LOC: ER 13:53
DX: S30.1XXA Contusion of abdominal wall, initial encounter (principal); Y04.2XXA Assault by strike against or bumped into by another person, initial encounter; Y93.9 Activity, unspecified; Y92.9 Unspecified place or not applicable
CPT/HCPCS: 74176; 99284

== ENCOUNTER 2021-06-30 08:38 | Emergency (ER) | payer SELFPAY ==
[2021-06-30 09:10] LABS: Urine Blood 2+ (Negative); Urine Glucose Negative (Negative); Urine Protein 1+ (Negative); Urine Specific Gravity >=1.030 (1.005-1.030); Urine pH 5.5 (5.0-7.0)
[2021-06-30 09:18] LABS: Urine Specific Gravity/Preg >1.030 (1.005-1.030)
[2021-06-30 09:26] LABS: Absolute Lymphocytes (CBC) 0.9 K/uL (0.7-4.9); Basophils % 0.4 % (0-1.3); Hematocrit 41.7 % (36.0-45.0); Lymphocytes % 17.9 % (15.3-44.8); MPV 9.3 fL (7.6-11.3); RBC Red Blood Cell Count 4.53 M/uL (3.86-4.86)
[2021-06-30 09:30] LABS: ALT/SGPT 18 U/L (12-78); AST/SGOT 12 U/L (15-37); Albumin 3.4 g/dL (3.4-5.0); Alkaline Phosphatase 98 U/L (45-117); BUN Blood Urea Nitrogen 7 mg/dL (7-18); Bicarbonate 27 mmol/L (21-32); Bilirubin Direct < 0.1 mg/dL (0-0.2); Bilirubin Total 0.2 mg/dL (0.2-1.0); Glucose Level 100 mg/dL (74-106); Lipase 57 U/L (73-393); Potassium 3.4 mmol/L (3.5-5.1); Protein, Total 7.9 g/dL (6.4-8.2); Sodium Level 142 mmol/L (136-145)
--- NOTE | 2021-06-30 10:18 | RAD REPORT ---
EXAM DESCRIPTION: CTAbdomen Pelvis W Contrast - 06/30/2021 9:58 am CLINICAL HISTORY: ABD PAIN COMPARISON: Abdomen Pelvis W Contrast dated 09/17/2016 TECHNIQUE: CT of the abdomen and pelvis was performed. All CT scans are performed using dose optimization technique as appropriate and may include automated exposure control or mA/KV adjustment according to patient size. FINDINGS: Lower chest: No acute abnormality. Liver: Too small to characterize liver lesions which are likely benign. Biliary: No biliary ductal dilatation. Stomach: No significant focal abnormality. Duodenum: No significant focal abnormality. Pancreas: No significant abnormality. Spleen: No significant abnormality. Adrenal: No suspicious lesions. Kidney/ureter: No hydronephrosis. No renal calculi. Retroperitoneum: No retroperitoneal adenopathy. Vascular: No aneurysm. Bowel: Colonic wall thickening involving the ascending and transverse colon.. Normal appendix. Peritoneum: Small volume of pelvic free fluid. Bladder: Grossly unremarkable. Reproductive: No adnexal masses. Bones: No acute fracture. Other: n/a IMPRESSION: Colitis involving the proximal 2/3 of the colon. This presumably is secondary to infecti ous or inflammatory process. Normal appendix.
--- NOTE | 2021-06-30 10:23 | EDPHYS ---
Physician Documentation [facility] Name: Tiffanie Goldman Age: 35 yrs Sex: Female : 1985 Arrival Date: 06/30/2021 Time: 08:41 Bed 14 Private MD: SUKHI Physician Mark Disla HPI: 06/30 10:44 This 35 yrs old Female presents to ER via Ambulatory with complaints of kb Abdominal Pain, Diarrhea. 10:45 The patient presents with abdominal pain. Onset: The symptoms/episode began/occurred 5 kb day(s) ago. The symptoms do not radiate. Associated signs and symptoms: Pertinent positives: diarrhea. The symptoms are described as constant. Modifying factors: The symptoms are alleviated by nothing, the symptoms are aggravated by nothing. Severity of pain: At its worst the pain was moderate in the emergency department the pain is unchanged. The patient has not experienced similar symptoms in the past. The patient has not recently seen a physician. Pt reports body aches, malaise, abd pain and diarrhea for 5 days. Denies fever. 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 - Social history:: Smoking status: Patient denies any tobacco usage or history of. ROS: 10:42 Respiratory: Negative for shortness of breath, cough, wheezing, and pleuritic chest kb pain. 10:42 Abdomen/GI: Positive for abdominal pain, diarrhea. 10:42 All other systems are negative. 10:44 Constitutional: Positive for body aches, malaise. kb Exam: 10:44 Constitutional: This is a well developed, well nourished patient who is awake, alert, kb and in no acute distress. Head/Face: Normocephalic, atraumatic. ENT: Moist Mucous membranes Cardiovascular: Regular rate and rhythm with a normal S1 and S2. No gallops, murmurs, or rubs. No pulse deficits. Respiratory: Respirations even and unlabored. No increased work of breathing, no retractions or nasal flaring. Skin: Warm, dry with normal turgor. Normal color. MS/ Extremity: Pulses equal, no cyanosis. Neurovascular intact. Full, normal range of motion. Neuro: Awake and alert, GCS 15, oriented to person, place, time, and situation. Moves all extremities. Normal gait. Psych: Awake, alert, with orientation to person, place and time. Behavior, mood, and affect are within normal limits. 10:44 Abdomen/GI: Inspection: abdomen appears normal, Bowel sounds: normal, in all quadrants, Palpation: soft, in all quadrants, mild abdominal tenderness, in the left lower quadrant. Vital Signs: 08:44 BP 119 / 92; Pulse 84; Resp 17; Temp 97.3; Pulse Ox 100% ; Weight 67.59 kg; Height 5 ap3 ft. 6 in. (167.64 cm); Pain 3/10; 09:00 BP 107 / 74; Pulse 86; Resp 16; Pulse Ox 100% on R/A; kj1 11:03 BP 111 / 71; Pulse 77; Resp 17; Pulse Ox 100% on R/A; oh 08:44 Body Mass Index 24.05 (67.59 kg, 167.64 cm) ap3 MDM: 08:49 Patient medically screened. kb 10:20 Data reviewed: vital signs, nurses notes. Data interpreted: Pulse oximetry: on room air kb is 100 %. Interpretation: normal. Counseling: I had a detailed discussion with the patient and/or guardian regarding: the historical points, exam findings, and any diagnostic results supporting the discharge/admit diagnosis, lab results, radiology results, the need for outpatient follow up, a family practitioner, to return to the emergency department if symptoms worsen or persist or if there are any questions or concerns that arise at home. 06/30 08:49 Order name: Basic Metabolic Panel; Complete Time: 09:31 kb 06/30 08:49 Order name: CBC with Diff; Complete Time: 09:27 kb 06/30 08:49 Order name: Hepatic Function; Complete Time: 09:31 kb 06/30 08:49 Order name: Lipase; Complete Time: 09:31 kb 06/30 09:09 Order name: Urine Dipstick-Ancillary; Complete Time: 09:10 EDMS 06/30 09:12 Order name: Urine --Ancillary (enter results); Complete Time: 09:24 bd 06/30 08:49 Order name: IV Saline Lock; Complete Time: 09:12 kb 06/30 08:49 Order name: Labs collected and sent; Complete Time: 09:12 kb 06/30 08:49 Order name: Urine Dipstick-Ancillary (obtain specimen); Complete Time: 09:12 kb 06/30 08:49 Order name: Urine Test (obtain specimen); Complete Time: 09:12 kb 06/30 09:31 Order name: CT Abd/Pelvis - IV Contrast Only; Complete Time: 10:19 kb Administered Medications: 10:32 Drug: Flagyl (metroNIDAZOLE) 500 mg Route: PO; oh 10:33 Drug: Cipro (ciprofloxacin) 500 mg Route: PO; oh Disposition Summary: 06/30/21 10:22 Discharge Ordered Location: Home kb Condition: Stable kb Diagnosis - Colitis kb Followup: kb - With: Emergency Department - When: As needed - Reason: Worsening of condition Followup: kb - With: Private Physician - When: 2 - 3 days - Reason: Recheck today's complaints, Continuance of care, Re-evaluation by your physician Discharge Instructions: - Discharge Summary Sheet kb - Colitis kb Forms: - Medication Reconciliation Form kb - Thank You Letter kb - Antibiotic Education kb - Prescription Opioid Use kb Prescriptions: - Cipro 500 mg Oral Tablet - take 1 tablet by ORAL route every 12 hours for 10 days; 20 tablet; Refills: 0, kb Product Selection Permitted - Flagyl 500 mg Oral Tablet - take 1 tablet by ORAL route every 8 hours for 10 days; 30 tablet; Refills: 0, kb Product Selection Permitted Addendum: 07/01/2021 13:06 Co-signature as Attending Physician, Mark Disla MD I agree with the assessment and c rothman plan of care. Signatures: Dispatcher [employer] Anne Franco, [employer] SALES ENGINEER-C [employer] SALES ENGINEER-Mark Gamble MD MD cha Prokisch, Amanda RN RN ap3 Martinez Saenz RN RN oh Corrections: (The following items were deleted from the chart) 06/30 10:45 10:42 Constitutional: Negative for fever, chills, and weight loss, kb kb
--- NOTE | 2021-06-30 10:23 | ER ---
Nurse's Notes [facility] Name: Tiffanie Goldman Age: 35 yrs Sex: Female : 1985 Arrival Date: 06/30/2021 Time: 08:41 Bed 14 Private MD: Diagnosis: Colitis Presentation: 06/30 08:44 Chief complaint: Patient states: Patient states that she hasn't been feeling well since ap3 Sunday. She states she has been having stomach pain and cramping since Sunday06/28/2021. Patient also states she has had Diarrhea, which began Sunday night. Coronavirus screen: Client presents with at least one sign or symptom that may indicate coronavirus-19. Standard/surgical mask placed on the client. Ebola Screen: No symptoms or risks identified at this time. Initial Sepsis Screen: Does the patient meet any 2 criteria? No. Patient's initial sepsis screen is negative. Does the patient have a suspected source of infection? No. Patient's initial sepsis screen is negative. Risk Assessment: Do you want to hurt yourself or someone else? Patient reports no desire to harm self or others. Onset of symptoms was June 26, 2021. 08:44 Method Of Arrival: Ambulatory ap3 08:44 Acuity: ISH 3 ap3 Triage Assessment: 08:47 General: Appears in no apparent distress. Behavior is calm, cooperative, appropriate ap3 for age. Pain: Complains of pain in right lower quadrant and left lower quadrant Pain does not radiate. Pain currently is 3 out of 10 on a pain scale. at worst was 8 out of 10 on a pain scale. Quality of pain is described as crampy, Pain began gradually, 2-3 days ago. Alleviated by rest. Neuro: Level of Consciousness is awake, alert, obeys commands, Oriented to person, place, time, situation, Appropriate for age Moves all extremities. Gait is steady, Speech is normal. Cardiovascular: Patient's skin is warm and dry. Respiratory: Airway is patent Respiratory effort is even, unlabored, Respiratory pattern is regular, symmetrical. GI: Reports lower abdominal pain, cramping, diarrhea. 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 - Social history:: Smoking status: Patient denies any tobacco usage or history of. Screenin:25 Abuse screen: Denies threats or abuse. Nutritional screening: No deficits noted. oh Tuberculosis screening: No symptoms or risk factors identified. Fall Risk None identified. Assessment: 08:51 Reassessment: patient provided with urine container and education on proper urine ap3 collection. Patient verbalized understanding. 09:24 General: Reports feeling ill for 2-3 days. GI: Reports lower abdominal pain, cramping, oh diarrhea, rectal bleeding. Vital Signs: 08:44 BP 119 / 92; Pulse 84; Resp 17; Temp 97.3; Pulse Ox 100% ; Weight 67.59 kg; Height 5 ap3 ft. 6 in. (167.64 cm); Pain 3/10; 09:00 BP 107 / 74; Pulse 86; Resp 16; Pulse Ox 100% on R/A; kj1 11:03 BP 111 / 71; Pulse 77; Resp 17; Pulse Ox 100% on R/A; oh 08:44 Body Mass Index 24.05 (67.59 kg, 167.64 cm) ap3 ED Course: 08:41 Patient arrived in ED. mr 08:42 AscencionAnne FNP-C [facility]. kb 08:42 Mark Disla MD is Attending Physician. kb 08:47 Triage completed. ap3 08:48 Arm band placed on right wrist. ap3 09:03 Initial lab(s) drawn, by me, sent to lab. Urine collected: clean catch specimen, clear. kj1 Inserted saline lock: 20 gauge in right antecubital area, using aseptic technique. Blood collected. 09:18 Martinez Saenz, RN is Primary Nurse. oh 09:25 Bed in low position. Call light in reach. oh 09:55 CT Abd/Pelvis - IV Contrast Only In Process Unspecified. EDMS 11:04 IV discontinued, bleeding controlled, Pressure dressing applied. oh 11:04 No provider procedures requiring assistance completed. oh Administered Medications: 10:32 Drug: Flagyl (metroNIDAZOLE) 500 mg Route: PO; oh 10:33 Drug: Cipro (ciprofloxacin) 500 mg Route: PO; oh Outcome: 10:22 Discharge ordered by MD. ross 11:04 Discharged to home oh 11:04 Condition: stable 11:04 Discharge instructions given to patient. 11:04 Patient left the ED. oh Signatures: Dispatcher [employer] Anne Franco, ALLISON CHOU-Demetria De Los Santos Amanda, RN RN ap3 Rani Vegas kj1 Martinez Saenz RN RN oh
[2021-06-30] MEDS ORDERED: CIPROFLOXACIN HCL 500 MG TAB ONE (10:53)
[2021-06-30] MEDS ORDERED: metroNIDAZOLE 500 MG TABLET ONE (10:54)
[2021-06-30 11:18] VITALS: TEMP 97.3; O2SAT 100
[2021-06-30 11:21] VITALS: BP 111/71
== END 2021-06-30 11:04 | disposition home or self-care (01) ==
LOC: ER 08:38
DX: K52.9 Noninfective gastroenteritis and colitis, unspecified (principal)
CPT/HCPCS: 36415; 74177; 80048; 80076; 81003; 81025; 83690; 85025; 99284; Q9967

== ENCOUNTER 2021-09-15 21:06 | Emergency (ER) | payer SELFPAY ==
--- OUTSIDE RECORDS SUMMARY | 2021-09-15 21:09 | XMS REPORT | Continuity of Care Document ---
:1985 Author Organization [facility] t Address [address] [place] [address] Care Team Providers Name Role Phone Nai IZAGUIRRE, T Attending Clinician Unavailable Delmis Whelan DO Attending Clinician Doctor Unassigned, Name Attending Clinician Unavailable Payers Payer Name Policy Type Policy Number Effective Date Expiration Date [facility], [facility]–1983 [id number] 2015 CHOICE MEDICAID 00:00:00 Problems This patient has no known problems. Allergies, Adverse Reactions, Alerts Allergy Allergy Status Severity Reaction(s) Onset Inactive Treating Comm ents Source Name Type Date Date Clinician NO KNOWN Drug Active [facility] ALLERGIE Class ity of S [facility] Medications This patient has no known medications. Procedures This patient has no known procedures. Encounters Start End Encounter Admission Attending Care Care Encounter Source Date/Time Date/Time Type Type Clinicians Facility Department ID 2020-04-30 2020-04-30 Letter CELIA Trimble [id number] 00:00:00 00:00:00 (Out) Dania KWON [id number] [facility] [id number] 2020-04-27 2020-04-27 Emergency Tip [facility] [id number] 14:41:00 16:53:00 Karla Cardenas [id number] [place] [id number] [place] [id number] 2020-04-27 2020-04-27 Emergency X [facility] ERT [id number] Univers 14:32:00 14:32:00 ity of [facility] 2020-04-27 2020-04-27 Orders Doctor CELIA [id number] 00:00:00 00:00:00 Only Unassigned, DOYLE [id number] [place] [facility] [id number] Results This patient has no known results.
--- NOTE | 2021-09-16 00:11 | ER ---
Nurse's Notes [facility] Name: Tiffanie Goldman Age: 36 yrs Sex: Female : 1985 Arrival Date: 09/15/2021 Time: 21:12 Bed Waiting Private MD: Diagnosis: ED Course: 09/15 21:12 Patient arrived in ED. ja2 09/16 00:10 Patient's name was called from ER lobby. No response. Unable to locate patient. Will bb disposition as left without being seen by a provider. Administered Medications: No medications were administered Outcome: 00:10 Patient left the ED. bb Signatures: Shanique Hernandez RN RN bb Mario Tiffanie lucy
== END 2021-09-16 00:10 | disposition left against medical advice (07) ==
LOC: ER 21:06
DX: Z02.89 Encounter for other administrative examinations (principal)

== ENCOUNTER 2021-09-17 04:09 | Emergency (ER) | payer SELFPAY ==
--- OUTSIDE RECORDS SUMMARY | 2021-09-17 04:11 | XMS REPORT | Continuity of Care Document ---
:1985 Author Organization [facility] t Address [address] [place] [address] Care Team Providers Name Role Phone Nai IZAGUIRRE, T Attending Clinician Unavailable Delmis Whelan DO Attending Clinician Doctor Unassigned, Name Attending Clinician Unavailable Payers Payer Name Policy Type Policy Number Effective Date Expiration Date [facility] [id number] 2015 CHOICE MEDICAID 00:00:00 Problems This patient has no known problems. Allergies, Adverse Reactions, Alerts Allergy Allergy Status Severity Reaction(s) Onset Inactive Treating Comm ents Source Name Type Date Date Clinician NO KNOWN Drug Active [facility]ERGIE Class ity of [facility] Medications This patient has no known medications. Procedures This patient has no known procedures. Encounters Start End Encounter Admission Attending Care Care Encounter Source Date/Time Date/Time Type Type Clinicians Facility Department ID 2020-04-30 2020-04-30 Letter CELIA Trimble [id number] 00:00:00 00:00:00 (Out) Dania KWON [id number] [facility] [id number] 2020-04-27 2020-04-27 Emergency JAJA Whelan [id number] 14:41:00 16:53:00 Karla Cardenas [id number] [place] [id number] [place] [id number] 2020-04-27 2020-04-[address] [facility] ERT [id number] Univers 14:32:00 14:32:00 ity [facility] 2020-04-27 2020-04-27 Orders Doctor CELIA [id number] 00:00:00 00:00:00 Only Unassigned, DOYLE [id number] [place] [facility] [id number] [id number] Results This patient has no known results.
[2021-09-17] MEDS ORDERED: ONDANSETRON 4 MG (ODT) TAB ONE (06:12)
--- NOTE | 2021-09-17 08:24 | ER ---
Nurse's Notes [facility] Name: Tiffanie Goldman Age: 36 yrs Sex: Female : 1985 Arrival Date: 09/17/2021 Time: 04:11 Bed 24 Private MD: Diagnosis: Rash and other nonspecific skin eruption;Vomiting Presentation: 09/17 05:06 Chief complaint: Patient states: she had a Covid 19 shot on Sunday ([employer]), she says bb her coworkers all have covid on Sunday she started having a rash on her hands then she had abdominal pain and she started vomiting and still cannot hold anything down she is having cramping all the way around radiating down her left side. Coronavirus screen: muscle pain, vomiting. Client presents with at least one sign or symptom that may indicate coronavirus-19. Standard/surgical mask placed on the client. Ebola Screen: No symptoms or risks identified at this time. Onset: The symptoms/episode began/occurred suddenly. Anaphylaxis evaluation, no signs or symptoms of anaphylaxis were noted. Initial Sepsis Screen: Does the patient meet any 2 criteria? No. Patient's initial sepsis screen is negative. Does the patient have a suspected source of infection? No. Patient's initial sepsis screen is negative. Risk Assessment: Do you want to hurt yourself or someone else? Patient reports no desire to harm self or others. Onset of symptoms was September 14, 2021. 05:06 Method Of Arrival: Ambulatory bb 05:06 Acuity: ISH 3 bb Triage Assessment: 05:11 General: Appears in no apparent distress. Behavior is calm, cooperative. Pain: bb Complains of pain in back Pain currently is 5 out of 10 on a pain scale. Neuro: Level of Consciousness is awake, alert, obeys commands, Oriented to person, place, time, situation. Cardiovascular: Capillary refill < 3 seconds Patient's skin is warm and dry. Respiratory: Respiratory effort is even, unlabored, Respiratory pattern is regular. GI: Reports vomiting. Derm: Skin is pink, warm \\T\\ dry. Musculoskeletal: Circulation, motion, and sensation intact. 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 - Social history:: Smoking status: Patient denies any tobacco usage or history of. Screenin:21 Abuse screen: Denies threats or abuse. Denies injuries from another. Nutritional ang screening: No deficits noted. Tuberculosis screening: No symptoms or risk factors identified. Fall Risk None identified. Assessment: 05:20 Reassessment: Patient appears in no apparent distress at this time. General: I read the Triage nurse's assessment and concur. . Respiratory: No deficits noted. 06:09 General: is at bedside assessing the pt. . ang 06:16 General: The pt was given Zofran ODT and we are awaiting lab results and po challenge. ang NAD.. 06:35 General: The pt was given a jay naila and jello, for her po challenge. . ang Vital Signs: 05:06 BP 139 / 95; Pulse 71; Resp 16 S; Temp 97.7(O); Pulse Ox 100% on R/A; Weight 71.67 kg bb (R); Height 5 ft. 5 in. (165.10 cm) (R); Pain 5/10; 06:15 BP 122 / 83; Pulse 68; Resp 16; Temp 98.3; Pulse Ox 100% on R/A; ang 05:06 Body Mass Index 26.29 (71.67 kg, 165.10 cm) ED Course: 04:11 Patient arrived in ED. wm 05:11 Triage completed. bb 05:11 Arm band placed on. covid swab sent. bb 05:15 Shanique Cifuentes, RN is Primary Nurse. ang 05:21 No apparent distress. Appears to be sleeping. Awaiting lab results. ang 05:21 Bed in low position. Call light in reach. Door closed. Noise minimized. Lights dimmed. ang Warm blanket given. 05:21 No provider procedures requiring assistance completed. ang 06:00 Los Burton NP is PHCP. pm1 06:00 Terrance Fermin MD is Attending Physician. pm1 06:16 Flu Sent. ang 06:16 COVID-19 SARS RT PCR (Document "Date of Onset" if Symptomatic) Sent. ang 06:16 Influenza Screen (A Sent. ang Administered Medications: 06:15 Drug: Ondansetron 4 mg Route: PO; ang 06:37 Follow up: Response: No adverse reaction; Nausea is decreased ang Outcome: 08:24 Discharge ordered by MD. pm1 08:54 Patient left the ED. [email or web address] Signatures: Shanique Hernandez, ZINA RN bb Los Burton, JENNY MEDICAL INTERPRETER pm1 Sandra Aguirre 4 Selena Sarabia Brenda, RN RN bo
--- NOTE | 2021-09-17 08:24 | EDPHYS ---
Physician Documentation [facility] Name: Tiffanie Goldman Age: 36 yrs Sex: Female : 1985 Arrival Date: 09/17/2021 Time: 04:11 Bed 24 Private MD: ED Physician Terrance Fermin HPI: 09/17 06:12 This 36 yrs old Female presents to ER via Ambulatory with complaints of pm1 Allergic Reaction. 06:12 The patient presents with rash, of the right hand, left hand, right leg and left leg. pm1 06:12 Onset: The symptoms/episode began/occurred 5 day(s) ago. Associated signs and symptoms: pm1 Pertinent positives: abdominal pain, vomiting, bodyaches. Possible causes: patient attributes to pfizer vaccination on Sunday and coworkers with covid infections. At home the patient or guardian has treated the symptoms with nothing. Severity of symptoms: in the emergency department the symptoms rash resolved but nausea, vomiting, body aches has not changed. The patient has not experienced similar symptoms in the past. The patient has not recently seen a physician. Her coworkers were getting sick with covid so she decided to get the vaccine on Sunday. 2 hours after receiving the vaccine she started getting a rash to her hands and lower legs and feet. Patient with onset of vomiting, body aches, and abdominal pain - characterized as burning on the same day. Patient's rash resolved. 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 - Social history:: Smoking status: Patient denies any tobacco usage or history of. ROS: 06:26 Constitutional: Negative for fever, chills, and weight loss, Cardiovascular: Negative pm1 for chest pain, palpitations, and edema, Respiratory: Negative for shortness of breath, cough, wheezing, and pleuritic chest pain. 06:26 Back: Negative for injury and pain, MS/Extremity: Negative for injury and deformity, Skin: Negative for injury, rash, and discoloration, Neuro: Negative for headache, weakness, numbness, tingling, and seizure. 06:26 Abdomen/GI: Positive for abdominal pain, nausea and vomiting, Negative for constipation. 06:26 All other systems are negative. Exam: 06:26 Constitutional: This is a well developed, well nourished patient who is awake, alert, pm1 and in no acute distress. Head/Face: Normocephalic, atraumatic. 06:26 Abdomen/GI: Soft, non-tender, with normal bowel sounds. No distension or tympany. No guarding or rebound. No evidence of tenderness throughout. Back: No spinal tenderness. No costovertebral tenderness. Full range of motion. Skin: Warm, dry with normal turgor. Normal color with no rashes, no lesions, and no evidence of cellulitis. MS/ Extremity: Pulses equal, no cyanosis. Neurovascular intact. Full, normal range of motion. 06:26 Cardiovascular: Exam negative for acute changes, Rate: normal, Rhythm: regular, Pulses: no pulse deficits are appreciated. 06:26 Respiratory: Exam negative for acute changes, respiratory distress, shortness of breath, Breath sounds: are clear throughout. 06:26 Neuro: Exam negative for acute changes, Orientation: is normal, Mentation: is normal, Motor: is normal, moves all fours. Vital Signs: 05:06 BP 139 / 95; Pulse 71; Resp 16 S; Temp 97.7(O); Pulse Ox 100% on R/A; Weight 71.67 kg bb (R); Height 5 ft. 5 in. (165.10 cm) (R); Pain 5/10; 06:15 BP 122 / 83; Pulse 68; Resp 16; Temp 98.3; Pulse Ox 100% on R/A; ang 05:06 Body Mass Index 26.29 (71.67 kg, 165.10 cm) bb MDM: 06:06 Patient medically screened. pm1 06:12 ED course: Patient reports vomiting with each meal since getting ill. Offered IV fluids pm1 but patient refused IV and would like to take any medications or fluids by mouth. Will give patient zofran and PO challenge. Patient reports resolution of rash. 08:23 Data reviewed: vital signs. Data interpreted: Pulse oximetry: on room air is 100 %. pm1 Interpretation: normal. 08:23 ED course: Flu negative result per lab. pm1 08:23 Counseling: I had a detailed discussion with the patient and/or guardian regarding: the pm1 historical points, exam findings, and any diagnostic results supporting the discharge/admit diagnosis, lab results, the need for outpatient follow up, to return to the emergency department if symptoms worsen or persist or if there are any questions or concerns that arise at home. 09/17 05:39 Order name: COVID-19 SARS RT PCR (Document "Date of Onset" if Symptomatic); Complete ds4 Time: 07:18 09/17 06:12 Order name: Flu pm1 09/17 06:12 Order name: Influenza Screen (A EDMS 09/17 06:14 Order name: PO challenge; Complete Time: 06:36 pm1 Administered Medications: 06:15 Drug: Ondansetron 4 mg Route: PO; ang 06:37 Follow up: Response: No adverse reaction; Nausea is decreased ang Disposition: 19:43 Co-signature as Attending Physician, Terrance Fermin MD. [facility] Disposition Summary: 09/17/21 08:24 Discharge Ordered Location: Home pm1 Problem: new pm1 Symptoms: have improved pm1 Condition: Stable pm1 Diagnosis - Rash and other nonspecific skin eruption pm1 - Vomiting pm1 Followup: pm1 - With: Emergency Department - When: As needed - Reason: Worsening of condition Followup: pm1 - With: Private Physician - When: 2 - 3 days - Reason: Recheck today's complaints, Continuance of care, Re-evaluation by your physician Discharge Instructions: - Discharge Summary Sheet pm1 - Rash, Adult pm1 - Vomiting, Adult pm1 Forms: - Medication Reconciliation Form pm1 - Work release form iw - Thank You Letter pm1 - Antibiotic Education pm1 - Prescription Opioid Use pm1 Prescriptions: - ondansetron 4 mg Oral tablet,disintegrating - place 1 tablet by TRANSLINGUAL route every 8 hours As needed; 15 tablet; pm1 Refills: 0, Product Selection Permitted Signatures: Dispatcher [employer] Shanique Walters, [place] RN, NP DIRECTOR OF HOME CARE HOSPICE pm1 Terrance Fermin MD MD [facility] Shanique Cifuentes RN RN ang
[2021-09-17 09:34] VITALS: O2SAT 100
[2021-09-17 09:35] VITALS: BP 122/83; TEMP 98.3
== END 2021-09-17 08:54 | disposition home or self-care (01) ==
LOC: ER 04:09
DX: R21 Rash and other nonspecific skin eruption (principal); R11.10 Vomiting, unspecified; Z20.822 Contact with and (suspected) exposure to COVID-19
CPT/HCPCS: 99283; U0003

== ENCOUNTER 2021-09-23 10:18 | Emergency (ER) | payer SELFPAY ==
--- OUTSIDE RECORDS SUMMARY | 2021-09-23 10:20 | XMS REPORT | Continuity of Care Document ---
:1985 Author Organization [facility] t Address [facility] [place] [address] Care Team Providers Name Role Phone Nai IZAGUIRRE, T Attending Clinician Unavailable Delmis Whelan DO Attending Clinician Doctor Unassigned, Name Attending Clinician Unavailable Payers Payer Name Policy Type Policy Number Effective Date Expiration Date [facility] [id number] 2015 CHOICE MEDICAID 00:00:00 Problems This patient has no known problems. Allergies, Adverse Reactions, Alerts Allergy Allergy Status Severity Reaction(s) Onset Inactive Treating Comm ents Source Name Type Date Date Clinician NO KNOWN Drug Active [facility] ALLERGIE Class ity of S [facility] Medications This patient has no known medications. Procedures This patient has no known procedures. Encounters Start End Encounter Admission Attending Care Care Encounter Source Date/Time Date/Time Type Type Clinicians Facility Department ID 2020-04-30 2020-04-30 Letter CELIA Trimble [id number] 00:00:00 00:00:00 (Out) Dania KWON [id number] [facility] [id number] 2020-04-27 2020-04-27 Emergency KIM Whelan [id number] 14:41:00 16:53:00 Karla Cardenas [id number] [place] [id number] [place] [id number] 2020-04-27 2020-04-27 Emergency X [facility] ERT [id number] Univers 14:32:00 14:32:00 ity [facility] 2020-04-27 2020-04-27 Orders Doctor CELIA [id number] 00:00:00 00:00:00 Only Unassigned, DOYLE [id number] [place] [facility] [id number] Results This patient has no known results.
[2021-09-23 13:14] LABS: Urine Blood Trace-intact (Negative); Urine Glucose Negative (Negative); Urine Protein Negative (Negative); Urine pH 5.5 (5.0-7.0)
[2021-09-23] MEDS ORDERED: FAMOTIDINE 20 MG/2 ML VIAL IV ONE (13:14)
[2021-09-23] MEDS ORDERED: METHYLPREDNISOLONE 125 MG INJ ONE (13:14)
[2021-09-23] MEDS ORDERED: DIPHENHYDRAMINE 50 MG/ML VIAL ONE (13:15)
[2021-09-23 13:44] LABS: Absolute Lymphocytes (CBC) 1.8 K/uL (0.7-4.9); Hematocrit 37.2 % (36.0-45.0); Lymphocytes % 22.1 % (15.3-44.8); MPV 8.7 fL (7.6-11.3); RBC Red Blood Cell Count 4.08 M/uL (3.86-4.86)
--- NOTE | 2021-09-23 13:51 | RAD REPORT ---
EXAM DESCRIPTION: RAD - Chest Single View - 09/23/2021 1:45 pm CLINICAL HISTORY: CHEST PAIN COMPARISON: CHEST PA AND LAT 2 VIEW dated 01/29/2008; CHEST PA AND LAT 2 VIEW dated 09/15/2001 FINDINGS: Lines: None. Lungs: No evidence of edema or pneumonia. Pleural: No significant pleural effusions or pneumothorax. Cardiac: The heart size is within normal limits. Bones: No acute fractures. Other: IMPRESSION: No acute cardiopulmonary disease.
[2021-09-23 14:07] LABS: ALT/SGPT 22 U/L (12-78); AST/SGOT 13 U/L (15-37); Albumin 3.2 g/dL (3.4-5.0); Alkaline Phosphatase 104 U/L (45-117); BUN Blood Urea Nitrogen 8 mg/dL (7-18); Bicarbonate 25 mmol/L (21-32); Bilirubin Direct < 0.1 mg/dL (0-0.2); Bilirubin Total 0.3 mg/dL (0.2-1.0); Glucose Level 95 mg/dL (74-106); Lipase 105 U/L (73-393); Potassium 3.8 mmol/L (3.5-5.1); Protein, Total 7.7 g/dL (6.4-8.2); Sodium Level 139 mmol/L (136-145)
--- NOTE | 2021-09-23 16:43 | EDPHYS ---
Physician Documentation [facility] Name: Tiffanie Goldman Age: 36 yrs Sex: Female : 1985 Arrival Date: 09/23/2021 Time: 10:21 Bed 15 Private MD: ED Physician Paulette Mejias HPI: 09/23 13:24 This 36 yrs old Female presents to ER via Ambulatory with complaints of jr8 Epigastric Pain, Abdominal Pain, Back Pain. 13:24 Patient stated that she got a covid vaccination last week on Sunday. Stated that on jr8 Sunday she started to have epigastric pain. Came to get tested for COVID at that time which was negative. Stated that she continues to have epigastric pain, nausea, and pain that radiates around her chest to her back . 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 - Social history:: Smoking status: Patient denies any tobacco usage or history of. ROS: 13:24 Eyes: Negative for injury, pain, redness, and discharge, ENT: Negative for injury, jr8 pain, and discharge, Neck: Negative for injury, pain, and swelling, Cardiovascular: Negative for chest pain, palpitations, and edema, Respiratory: Negative for shortness of breath, cough, wheezing, and pleuritic chest pain, Back: Negative for injury and pain, MS/Extremity: Negative for injury and deformity, Skin: Negative for injury, rash, and discoloration, Neuro: Negative for headache, weakness, numbness, tingling, and seizure. 13:24 Abdomen/GI: Positive for abdominal pain, nausea and vomiting. Exam: 13:24 Constitutional: This is a well developed, well nourished patient who is awake, alert, jr8 and in no acute distress. Cardiovascular: Regular rate and rhythm with a normal S1 and S2. No gallops, murmurs, or rubs. Normal PMI, no JVD. No pulse deficits. Respiratory: Lungs have equal breath sounds bilaterally, clear to auscultation and percussion. No rales, rhonchi or wheezes noted. No increased work of breathing, no retractions or nasal flaring. Back: No spinal tenderness. No costovertebral tenderness. Full range of motion. Skin: Warm, dry with normal turgor. Normal color with no rashes, no lesions, and no evidence of cellulitis. MS/ Extremity: Pulses equal, no cyanosis. Neurovascular intact. Full, normal range of motion. Neuro: Awake and alert, GCS 15, oriented to person, place, time, and situation. Cranial nerves II-XII grossly intact. Motor strength 5/5 in all extremities. Sensory grossly intact. 13:24 Chest/axilla: patchy erythema noted to anterior and posterior chest wall and breast region . 13:24 Abdomen/GI: Inspection: abdomen appears normal, Bowel sounds: active, all quadrants, Palpation: soft, in all quadrants, mass, is not appreciated, rebound tenderness, is not appreciated, voluntary guarding, is not appreciated, involuntary guarding, is not appreciated, no appreciated organomegaly, Indicators: McBurney's point is not tender, Mueller's sign is negative, Liver: tenderness, is not appreciated. Vital Signs: 10:50 BP 156 / 90; Pulse 74; Resp 17; Temp 98(TE); Pulse Ox 100% on R/A; Weight 70.31 kg (R); tw2 Height 5 ft. 6 in. (167.64 cm); Pain 5/10; 13:30 BP 146 / 86; Pulse 72; Resp 15; Pulse Ox 99% ; Pain 4/10; eo2 14:00 BP 131 / 88; Pulse 51; Resp 15; Pulse Ox 100% ; eo2 15:00 BP 101 / 72; Pulse 67; Resp 15; Pulse Ox 100% ; Pain 3/10; eo2 16:00 BP 106 / 78; Pulse 60; Resp 15; Pulse Ox 100% ; Pain 3/10; eo2 17:00 BP 95 / 70; Pulse 62; Resp 15; Pulse Ox 99% ; Pain 0/10; eo2 18:00 BP 99 / 75; Pulse 62; Resp 17; Pulse Ox 99% ; Pain 0/10; eo2 10:50 Body Mass Index 25.02 (70.31 kg, 167.64 cm) tw2 MDM: 12:23 Patient medically screened. [facility] 16:40 Data reviewed: vital signs, nurses notes, lab test result(s), radiologic studies, plain jr films, and as a result, I will discharge patient. Data interpreted: Pulse oximetry: on room air is 100 %. Interpretation: normal. Counseling: I had a detailed discussion with the patient and/or guardian regarding: the historical points, exam findings, and any diagnostic results supporting the discharge/admit diagnosis, lab results, radiology results, the need for outpatient follow up, a family practitioner, to return to the emergency department if symptoms worsen or persist or if there are any questions or concerns that arise at home. Response to treatment: the patient's symptoms have resolved after treatment. ED course: All rash has gone away. Patient feeling much better. Most likely allergic reaction. Could have been vaccination related but undetermined at this point. Needs close f/u and will remain on prednisone and pepcid for next 5 days. Benadryl as needed. Knows to come back if worse . 09/23 12:48 Order name: Basic Metabolic Panel [facility] 09/23 12:48 Order name: CBC with Diff [facility] 09/23 12:48 Order name: Hepatic Function [facility] 09/23 12:48 Order name: Lipase [facility] 09/23 12:49 Order name: Basic Metabolic Panel; Complete Time: 14:08 [facility] 09/23 12:49 Order name: CBC with Automated Diff; Complete Time: 13:54 [facility] 09/23 12:48 Order name: XRAY Chest (1 view); Complete Time: 13:54 [facility] 09/23 12:49 Order name: Liver (Hepatic) Function; Complete Time: 14:08 [facility] 09/23 12:49 Order name: Lipase; Complete Time: 14:08 [facility] 09/23 13:15 Order name: Urine Dipstick-Ancillary; Complete Time: 13:24 [facility] 09/23 13:19 Order name: Urine --Ancillary (enter results); Complete Time: 14:08 09/23 12:48 Order name: IV Saline Lock; Complete Time: 14:12 [facility] 09/23 12:48 Order name: Labs collected and sent; Complete Time: 14:12 [facility] 09/23 12:48 Order name: EKG - Nurse/Tech; Complete Time: 14:04 [facility] 09/23 12:48 Order name: EKG; Complete Time: 12:49 jr8 09/23 12:48 Order name: Urine Dipstick-Ancillary (obtain specimen); Complete Time: 14:03 jr8 09/23 12:48 Order name: Urine Test (obtain specimen); Complete Time: 14:03 jr8 Administered Medications: 13:37 Drug: Benadryl (diphenhydrAMINE) 25 mg Route: IVP; Site: right antecubital; eo2 14:25 Follow up: Response: No adverse reaction eo2 14:25 Follow up: Response: No adverse reaction eo2 13:39 Drug: Pepcid (famotidine) 20 mg Route: IVP; Site: right antecubital; eo2 14:25 Follow up: Response: No adverse reaction eo2 13:41 Drug: SOLU-Medrol (methylPrednisoLONE) 125 mg Route: IVP; Site: right antecubital; eo2 14:30 Follow up: Response: No adverse reaction eo2 Disposition Summary: 09/23/21 16:42 Discharge Ordered Location: Home [facility] Problem: new jr8 Symptoms: have improved jr8 Condition: Stable jr8 Diagnosis - Acute Allergic Reaction jr8 Followup: jr8 - With: Private Physician - When: 2 - 3 days - Reason: Recheck today's complaints, Continuance of care, Re-evaluation by your physician Discharge Instructions: - Anaphylactic Reaction, Adult jr8 - Discharge Summary Sheet tw2 Forms: - Medication Reconciliation Form jr8 - Thank You Letter jr8 - Antibiotic Education jr8 - Work release form tw2 - Prescription Opioid Use jr8 Prescriptions: - Prednisone 20 mg Oral Tablet - take 1 tablet by ORAL route once daily for 5 days; 5 tablet; Refills: 0, jr8 Product Selection Permitted Addendum: 09/25/2021 16:22 Co-signature as Attending Physician, Paulette Mejias MD I agree with the assessment and s p3 plan of care. Signatures: Dispatcher [employer] Gabe Schrader PA PA jr8 Jie Espitia RN RN tw2 Paulette Mejias MD MD sp3 Gayla Bustamante RN RN eo2
--- NOTE | 2021-09-23 16:43 | ER ---
Nurse's Notes [facility] Name: Tiffanie Goldman Age: 36 yrs Sex: Female : 1985 Arrival Date: 09/23/2021 Time: 10:21 Bed 15 Private MD: Diagnosis: Acute Allergic Reaction Presentation: 09/23 10:48 Chief complaint: Patient states: i have been having this problem since last week. i tw2 came last and it was negative. i got the first vaccine dose last Sunday. Pfizer. i was sick since them. they gave me medicine for throwing up. but the pain starts in the middle of my stomach and radiates all the way around. it hits in the middle and cramps up and it hurts so bad it makes me throw up. Coronavirus screen: nausea, Client presents with at least one sign or symptom that may indicate coronavirus-19. Standard/surgical mask placed on the client. Provider contacted for isolation considerations. Ebola Screen: Patient denies travel to an Ebola-affected area in the 21 days before illness onset. 10:48 Method Of Arrival: Ambulatory tw2 10:50 Onset of symptoms was September 23, 2021. tw2 10:50 Acuity: ISH 3 tw2 10:50 Initial Sepsis Screen: Does the patient meet any 2 criteria? No. Patient's initial tw2 sepsis screen is negative. Does the patient have a suspected source of infection? No. Patient's initial sepsis screen is negative. Risk Assessment: Do you want to hurt yourself or someone else? Patient reports no desire to harm self or others. Triage Assessment: 10:51 General: Appears in no apparent distress. Behavior is calm, cooperative, appropriate tw2 for age. Pain: Complains of pain in epigastric area Pain radiates to abdomen. GI: Reports upper abdominal pain, nausea. BUYER LIAISON: 10:52 LMP 09/01/2021 tw2 Historical: - Allergies: 10:50 No Known Allergies; tw2 - Home Meds: 10:50 None [Active]; tw2 - PMHx: 10:50 Umbilical hernia; tw2 - PSHx: 10:50 Ligation of fallopian tube; tw2 - Immunization history:: Client reports receiving the 1st dose of the Covid vaccine. - Social history:: Smoking status: Patient denies any tobacco usage or history of. Screenin:30 Abuse screen: Denies threats or abuse. Denies injuries from another. Nutritional eo2 screening: No deficits noted. Tuberculosis screening: No symptoms or risk factors identified. Fall Risk None identified. Assessment: 13:30 General: Appears in no apparent distress. Behavior is calm, cooperative. Neuro: Denies eo2 dizziness, headache. Cardiovascular: Denies chest pain, shortness of breath. Respiratory: Denies cough, shortness of breath. GI: Reports epigastric abdominal pain, radiating across upper abdomen in to the back z 1 week, associated with N/V, reports vomiting blood yesterday. : No signs and/or symptoms were reported regarding the genitourinary system. Denies burning with urination. 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 Vital Signs: 10:50 BP 156 / 90; Pulse 74; Resp 17; Temp 98(TE); Pulse Ox 100% on R/A; Weight 70.31 kg (R); tw2 Height 5 ft. 6 in. (167.64 cm); Pain 5/10; 13:30 BP 146 / 86; Pulse 72; Resp 15; Pulse Ox 99% ; Pain 4/10; eo2 14:00 BP 131 / 88; Pulse 51; Resp 15; Pulse Ox 100% ; eo2 15:00 BP 101 / 72; Pulse 67; Resp 15; Pulse Ox 100% ; Pain 3/10; eo2 16:00 BP 106 / 78; Pulse 60; Resp 15; Pulse Ox 100% ; Pain 3/10; eo2 17:00 BP 95 / 70; Pulse 62; Resp 15; Pulse Ox 99% ; Pain 0/10; eo2 18:00 BP 99 / 75; Pulse 62; Resp 17; Pulse Ox 99% ; Pain 0/10; eo2 10:50 Body Mass Index 25.02 (70.31 kg, 167.64 cm) tw2 ED Course: 10:21 Patient arrived in ED. am2 10:50 Triage completed. tw2 10:50 Arm band placed on. tw2 12:09 Gayla Bustamante, ZINA is Primary Nurse. eo2 12:23 Gabe Gallardo PA is PHCP. jr8 12:23 Paulette Mejias MD is Attending Physician. jr8 13:15 Urine collected: clean catch specimen, cloudy, EKG done, by ED staff, reviewed by Gabe [email or web address] Sami ADLER. 13:30 Patient has correct armband on for positive identification. Pulse ox on. NIBP on. Door eo2 closed. Noise minimized. Warm blanket given. 13:30 No provider procedures requiring assistance completed. Inserted saline lock: 20 gauge eo2 in right antecubital area, using aseptic technique. Blood collected. 13:45 XRAY Chest (1 view) In Process Unspecified. EDMS 18:34 IV discontinued, intact. eo2 18:36 Basic Metabolic Panel Sent. eo2 18:36 CBC with Diff Sent. eo2 18:36 Hepatic Function Sent. eo2 18:36 Lipase Sent. eo2 Administered Medications: 13:37 Drug: Benadryl (diphenhydrAMINE) 25 mg Route: IVP; Site: right antecubital; eo2 14:25 Follow up: Response: No adverse reaction eo2 14:25 Follow up: Response: No adverse reaction eo2 13:39 Drug: Pepcid (famotidine) 20 mg Route: IVP; Site: right antecubital; eo2 14:25 Follow up: Response: No adverse reaction eo2 13:41 Drug: SOLU-Medrol (methylPrednisoLONE) 125 mg Route: IVP; Site: right antecubital; eo2 14:30 Follow up: Response: No adverse reaction eo2 Outcome: 16:42 Discharge ordered by . jr8 18:34 Discharged to home ambulatory. eo2 18:34 Condition: stable 18:34 Discharge instructions given to patient, and family at bedside who will drive pt home Instructed on discharge instructions, follow up and referral plans. medication usage, Demonstrated understanding of instructions, follow-up care, medications, Prescriptions given X 1. 18:37 Patient left the ED. eo2 Signatures: Dispatcher [employer] EDMS Gabe Gallardo PA PA jr8 Jie Espitia RN RN [email or web address] Mely Daily Mackenzie [id number] Gayla Bustamante RN RN eo2
[2021-09-23 18:44] VITALS: TEMP 98
[2021-09-23 18:51] VITALS: O2SAT 99
[2021-09-23 18:52] VITALS: BP 99/75
--- NOTE | 2021-09-24 13:48 | EKG ---
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
== END 2021-09-23 18:37 | disposition home or self-care (01) ==
LOC: ER 10:18
DX: R10.9 Unspecified abdominal pain (principal); T78.40XA Allergy, unspecified, initial encounter
CPT/HCPCS: 36415; 71045; 80048; 80076; 81003; 81025; 83690; 85025; 93005; 96374; 96375; 99284; J1200; J2930

== ENCOUNTER 2023-04-21 10:30 | Emergency (ER) | payer SELFPAY ==
--- OUTSIDE RECORDS SUMMARY | 2023-04-21 10:33 | XMS REPORT | Continuity of Care Document ---
:1985 Author Organization [facility] t Address [address] [place] [address] [address] [place] [address] Care Team Providers Name Role Phone PCP, PATIENT DOES NOT HAVE A Primary Care Physician Unavaila Hood Leal Attending Clinician Unavailable Hood Langford Attending Clinician SHAQUILLE BELLO Attending Clinician Unavailable Shaquille Bello NP Attending Clinician YESENIA VARMA Attending Clinician Unavailable Yesenia Varma MD Attending Clinician KARLA NELSON Attending Clinician Unavailable Karla Nelson DO Attending Clinician KATE BROWNE Attending Clinician Unavailable Kate Negro Attending Clinician Dania Trimble RN Attending Clinician Unavailable Doctor Unassigned, [place] Attending Clinician Unavailable Hood PRINCE Admitting Clinician Unavailable SHAQUILLE BELLO Admitting Clinician Unavailable YESENIA VARMA Admitting Clinician Unavailable KATE BROWNE Admitting Clinician Unavailable Payers Payer Name Policy Type Policy Number Effective Date Expiration Date S mehran [employer] [id number] NON-CONTRACT GENERIC [facility] [place] [facility] [id number] 2021 00:00:00 MULTIPLAN GENERIC [id number] 2022 00:00:00 [facility] [id number] 2015 CHOICE MEDICAID 00:00:00 Problems Condition Condition Condition Status Onset Resolution Last Treating Co mments Source Name Details Category Date Date Treatment Clinician Date Paranoid Paranoid Disease Active Overview: Un braulio schizophre schizophre 9-10 Formattin ity of cece cece 00:00: g of this [place] 00 note Medical might be Branch different from the original. 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 Utility Allergies, Adverse Reactions, Alerts Allergy Allergy Status Severity Reaction(s) Onset Inactive Treating Comm ents Source Name Type Date Date Clinician NO KNOWN Drug Active Univers ALLERGIE Class ity of S [facility] Social History Social Habit Start Date Stop Date Quantity Comments Source Gender identity Universit y of [facility] Sexual orientation Univer sity of [facility] Alcohol intake 2023-04-13 2023-04-13 Current drinker Unive rsity of 00:00:00 00:00:00 of alcohol [facility] (finding) Branch History of Social 2023-04-13 2023-04-13 Univers ity of function 00:00:00 00:00:00 [facility] Exposure to 2023-01-25 2023-02-04 Not sure [facility] SARS-CoV-2 (event) 00:00:00 10:20:00 [facility] Tobacco use and 2022-12-17 2022-12-17 Smokeless Universit y of exposure 00:00:00 00:00:00 tobacco non-user [facility] dical [place] Alcohol Comment 2022-12-17 2022-12-17 weekends only Univer sity of 00:00:00 00:00:00 [facility] Sex [birth year] At [birth year] Universit y of 00:00:00 00:00:00 [facility] Smoking Status Start Date Stop Date Source Tobacco smoking consumption Univ ersity of [facility] unknown Branch Never smoked tobacco [facility] Medications Ordered Filled Start Stop Current Ordering Indication Dosage Frequency Signature Comments Components Source Medication Medication Date Date Medication? Clinician (SIG) Name Name ibuprofen Yes [id number] 600mg Take 1 Univers 600 mg 7-28 tablet by ity of tablet 00:00: mouth [place] 00 every 6 Medical (six) Branch hours as needed for Pain (scale 4-6). ibuprofen 2022- No 600mg 600 mg, Uni vers (IBU) 5-21 05-21 Oral, ity of tablet 600 15:45: 15:38 ONCE, 1 [place] as mg 00 :00 dose, On Medical Sun Branch 02/04/23 at 1045, JOSE ELIAS ibuprofen 2022-0 Yes [id number] 600mg Take 1 Univers 600 mg 5-21 tablet by ity of tablet 00:00: mouth [place] 00 every 6 Medical (six) Branch hours as needed for Pain (scale 4-6). ibuprofen 3-0 Yes [id number] 600mg Take 1 Univers 600 mg 5-21 tablet by ity of tablet 00:00: mouth [place] 00 every 6 Medical (six) Branch hours as needed for Pain (scale 4-6). benzonatate 2022-0 Yes [id number] 100mg Take 1 Univers 100 mg 4-02 capsule by ity of capsule 00:00: mouth 3 00 (three) Medical times Branch daily as needed for Cough. albuterol 0 Yes [id number] 2{puff} Inhale 2 Univers 90 4-02 Puffs ity of mcg/actuati 00:00: every 4 Jean as on inhaler 00 (four) Medical hours as Branch needed for Wheezing or Shortness of Breath. benzonatate 2022- No [id number] 100mg Take 1 Univers 100 mg 4-02 05-21 capsule by ity of capsule 00:00: 00:00 mouth 3 [place] 00 :00 (three) Medical times Branch daily as needed for Cough. albuterol 3- No [id number] 2{puff} Inhale 2 Univers 90 4-02 05-21 Puffs ity of mcg/actuati 00:00: 00:00 every 4 [place] on inhaler 00 :00 (four) Medical hours as Branch needed for Wheezing or Shortness of Breath. benzonatate 2021-0 Yes [id number] 100mg Take 1 Univers 100 mg 9-18 capsule by ity of capsule 00:00: mouth 3 [place] 00 (three) Medical times Branch daily as needed for Cough. benzonatate 2021-0 Yes [id number] 100mg Take 1 Univers 100 mg 9-18 capsule by ity of capsule 00:00: mouth 3 [place] 00 (three) Medical times Branch daily as needed for Cough. benzonatate 2021-0 2022- No [id number] 100mg Take 1 Univers 100 mg 9-18 04-02 capsule by ity of capsule 00:00: 00:00 mouth 3 [place] 00 :00 (three) Medical times Branch daily as needed for Cough. predniSONE 2021-2021- No [id number] 20mg Take 1 Univers 20 mg 9-18 -24 tablet by ity of tablet 00:00: 04:59 mouth in [place] 00 :00 the Medical morning Branch for 5 days. ondansetron 2021-0 2021- No 4mg 4 mg, Slow Univers (ZOFRAN 05-01-15 IV Push, ity of (PF)) 21:45: 21:04 ONCE, 1 [place] injection 4 00 :00 dose, On Medi tru mg Mon Branch 05/01/22 at 1645, JOSE ELIAS NaCl 0.9% 2021- No 1000mL at 999 Uni vers (NS) bolus 05-01-15 mL/hr, ity of infusion 21:45: 22:13 1,000 mL, Jean as 1,000 mL 00 :00 IV Medical Infusion, Branch ONCE, 1 dose, On 05/01/22 at 1645, JOSE ELIAS ondansetron 2021-0 Yes [id number] 4mg Take 1 Univers (ZOFRAN) 4 8-15 tablet by ity of mg tablet 00:00: mouth [place] 00 every 8 Medical (eight) Branch hours as needed for Nausea and Vomiting (N/V) for up to 15 doses. ondansetron 2021-0 2021- No [id number] 4mg Take 1 Univers (ZOFRAN) 4 8-15 -18 tablet by ity of mg tablet 00:00: 00:00 mouth [place] 00 :00 every 8 Medical (eight) Branch hours as needed for Nausea and Vomiting (N/V) for up to 15 doses. TAKE 1 2021-0 No 20 TABLET BY 7-15 MOUTH ONCE 00:00: DAILY FOR 5 00 DAYS DISSOLVE 1 2-0 No 4 TABLET IN 7-15 MOUTH EVERY 00:00: 8 HOURS 00 NEEDED TAKE 1 2022-0 No 500 TABLET BY 7-15 MOUTH EVERY 00:00: 8 HOURS FOR 00 10 DAYS TAKE 1 2022-0 No 20 TABLET BY 7-15 MOUTH ONCE 00:00: DAILY FOR 5 00 DAYS TAKE 1 2022-0 No TABLET BY 7-15 MOUTH EVERY 00:00: 12 HOURS 00 FOR 10 DAYS TAKE 1 2022-0 No TABLET BY 7-15 MOUTH EVERY 00:00: 12 HOURS 00 FOR 10 DAYS Dose 2-0 No 500 Unknown 7-15 00:00: 00 ibuprofen 2021-0 2022- No 600mg 600 mg, Uni vers (IBU) 02-15 05-31 Oral, ity of tablet 600 00:15: 23:18 ONCE, 1 [place] as mg 00 :00 dose, On Medical Tue Branch 02/14/22 at 1915, JOSE ELIAS ibuprofen 2021-0 Yes [id number] 600mg Take 1 Univers 600 mg 5-31 tablet by ity of tablet 00:00: mouth [place] 00 every 6 Medical (six) Branch hours as needed for Pain (scale 4-6). ibuprofen 2021-0 Yes [id number] 600mg Take 1 Univers 600 mg 5-31 tablet by ity of tablet 00:00: mouth [place] 00 every 6 Medical (six) Branch hours as needed for Pain (scale 4-6). ibuprofen 2021-0 Yes [id number] 600mg Take 1 Univers 600 mg 5-31 tablet by ity of tablet 00:00: mouth [place] 00 every 6 Medical (six) Branch hours as needed for Pain (scale 4-6). ibuprofen 2021-0 Yes [id number] 600mg Take 1 Univers 600 mg 5-31 tablet by ity of tablet 00:00: mouth [place] 00 every 6 Medical (six) Branch hours as needed for Pain (scale 4-6). methocarbam 2-0 Yes [id number] 500mg Take 1 Univers oL 500 mg 5-31 tablet by ity o f tablet 00:00: mouth 4 00 (four) Medical times Branch daily. ibuprofen 2021-0 Yes [id number] 600mg Take 1 Univers 600 mg 5-31 tablet by ity of tablet 00:00: mouth [place] 00 every 6 Medical (six) Branch hours as needed for Pain (scale 4-6). methocarbam 2022-0 Yes [id number] 500mg Take 1 Univers oL 500 mg 5-31 tablet by ity o f tablet 00:00: mouth 4 [place] 00 (four) Medical times Branch daily. ibuprofen 2-0 2023- No [id number] 600mg Take 1 Univers 600 mg 5-31 05- tablet by ity of tablet 00:00: 00:00 mouth [place] 00 :00 every 6 Medical (six) Branch hours as needed for Pain (scale 4-6). methocarbam 2021- No [id number] 500mg Take 1 Univers oL 500 mg --18 tablet by ity of tablet 00:00: 00:00 mouth 4 [place] 00 :00 (four) Medical times Branch daily. metronidazo No 1mg le 500 mg 2-24 tablet 00:00: 00 metronidazo 2019-0 No 1mg le 500 mg 2-18 tablet 00:00: 00 ondansetron 2017-09 Yes 4mg Take 1 Univ ers 4 mg 2-29 tablet by ity of disintegrat 00:00: mouth [place] ing tablet 00 every 8 Medica l (eight) Branch hours as needed for Nausea and Vomiting (N/V). ondansetron 2017-09 Yes 4mg Take 1 Univ ers 4 mg 2-29 tablet by ity of disintegrat 00:00: mouth [place] ing tablet 00 every 8 Medica l (eight) Branch hours as needed for Nausea and Vomiting (N/V). ondansetron 2017-09- No 4mg Take 1 Uni vers 4 mg 2-29 -18 tablet by ity of disintegrat 00:00: 00:00 [place] tablet 00 :00 every 8 Medica l (eight) Branch hours as needed for Nausea and Vomiting (N/V). QUETIAPINE 2006-0 Yes 2 Tab Oral U nivers 25 MG ORAL 9-10 QHSPRN ity of TAB 00:00: [place] 00 Medical Branch RISPERIDONE 2007-0 Yes 1 Tab Oral Univers 2 MG ORAL 9-10 QAM ity of TAB 00:00: [place] Medical Branch QUETIAPINE 2006-0 Yes 2 Tab Oral U nivers 25 MG ORAL 9-10 QHSPRN ity of TAB 00:00: [place] Medical Branch RISPERIDONE 2007-0 Yes 1 Tab Oral Univers 2 MG ORAL 9-10 QAM ity of TAB 00:00: Medical Branch QUETIAPINE 2006-0 Yes 2 Tab Oral U nivers 25 MG ORAL 9-10 QHSPRN ity of TAB 00:00: [place] Medical [facility] RISPERIDONE 2007-0 Yes 1 Tab Oral Univers 2 MG ORAL 9-10 QAM ity of TAB 00:00: [place] [facility] QUETIAPINE 2006-0 Yes 2 Tab Oral U nivers 25 MG ORAL 9-10 QHSPRN ity of TAB 00:00: [place] 00 Medical Branch RISPERIDONE 2006-0 Yes 1 Tab Oral Univers 2 MG ORAL 9-10 QAM ity of TAB 00:00: [place] 00 Medical Branch QUETIAPINE 2006-0 2023- No 2 Tab Oral Univers 25 MG ORAL 9-10 - QHSPRN ity of TAB 00:00: 00:00 [place] 00 :00 Medical Branch RISPERIDONE 2006-3- No 1 Tab Oral Univers 2 MG ORAL 9-10 - QAM ity of TAB 00:00: 00:00 [place] 00 :00 Medical Branch Vital Signs Vital Name Observation Time Observation Value Comments Source Systolic blood 2023-04-13 16:42:00 144 mm[Hg] Univer sity of pressure [facility] Diastolic blood 2023-04-13 16:42:00 99 mm[Hg] Unive rsity of [facility] Heart rate 2023-04-13 16:42:00 65 /min Universi ty [facility] Body temperature 2023-04-13 16:42:00 36.89 Tammy [facility] Respiratory rate 2023-04-13 16:42:00 14 /min [facility] Body height 2023-04-13 16:42:00 165.1 cm [facility] Body weight 2023-04-13 16:42:00 68.04 kg [facility] BMI 2023-04-13 16:42:00 24.96 kg/m2 [facility] Oxygen saturation in 2023-04-13 16:42:00 100 /min [facility] Arterial blood by [facility] [place] [facility] Pulse oximetry Branch Systolic blood 2023-02-04 16:00:00 136 mm[Hg] Univer sity of [facility] Diastolic blood 2023-02-04 16:00:00 98 mm[Hg] Unive rsity of [facility] Heart rate 2023-02-04 16:00:00 57 /min Universi ty [facility] Body temperature 2023-02-04 15:09:00 37.22 Tammy [facility] 2023-02-04 15:09:00 22 /min [facility] Body height 2023-02-04 15:09:00 165.1 cm Universi ty [facility] [place] [facility] Body weight 2023-02-04 15:09:00 63.504 kg Universi ty [facility] [place] [facility] BMI 2023-02-04 15:09:00 23.30 kg/m2 Universi ty [facility] [place] [facility] Oxygen saturation in 2023-02-04 15:09:00 100 /min University of Arterial blood by [facility] [place] [facility] Pulse oximetry Branch Systolic blood 2022-12-17 21:22:00 127 mm[Hg] Univer sity of pressure [place] [facility] Diastolic blood 2022-12-17 21:22:00 97 mm[Hg] Unive rsity of pressure [place] [facility] Heart rate 2022-12-17 21:22:00 92 /min Universi ty [facility] [place] [facility] Body temperature 2022-12-17 21:22:00 37.72 Tammy Univ ersity of [place] [facility] Respiratory rate 2022-12-17 21:22:00 16 /min Univ ersity of [place] [facility] Body height 2022-12-17 21:22:00 154.9 cm Universi ty [facility] [place] [facility] Body weight 2022-12-17 21:22:00 63.504 kg Universi ty [facility] [place] [facility] BMI 2022-12-17 21:22:00 26.45 kg/m2 Universi ty [facility] [place] [facility] Oxygen saturation in 2022-12-17 21:22:00 100 /min University of Arterial blood by [facility] [place] [facility] Pulse oximetry Branch Systolic blood 2022-06-25 17:19:00 146 mm[Hg] Univer sity of pressure [place] [facility] Diastolic blood 2022-06-25 17:19:00 87 mm[Hg] Unive rsity of pressure [place] [facility] Heart rate 2022-06-25 17:19:00 85 /min Universi ty [facility] [place] [facility] Body temperature 2022-06-25 17:19:00 36.28 Tammy Univ ersity [facility] [place] [facility] Respiratory rate 2022-06-25 17:19:00 20 /min Univ ersity [facility] [place] [facility] Body height 2022-06-25 17:19:00 170.2 cm Universi ty [facility] [place] [facility] Body weight 2022-06-25 17:19:00 58.968 kg Universi ty [facility] [place] [facility] BMI 2022-06-25 17:19:00 20.36 kg/m2 Universi ty [facility] [place] [facility] Oxygen saturation in 2022-06-25 17:19:00 99 /min University of Arterial blood by [facility] tru Pulse oximetry Branch Systolic blood 2022-06-04 16:04:00 126 mm[Hg] Univer sity of pressure [place] [facility] Diastolic blood 2022-06-04 16:04:00 92 mm[Hg] Unive rsity of pressure [place] [facility] Heart rate 2022-06-04 16:04:00 72 /min Universi ty [facility] [place] [facility] Body temperature 2022-06-04 16:04:00 36.67 Tammy Univ ersity [facility] [place] [facility] Respiratory rate 2022-06-04 16:04:00 19 /min Univ ersity of [place] [facility] Body height 2022-06-04 16:04:00 162.6 cm Universi ty [facility] [place] [facility] Body weight 2022-06-04 16:04:00 58.968 kg Universi ty [facility] [place] [facility] BMI 2022-06-04 16:04:00 22.31 kg/m2 Universi ty [facility] [place] [facility] Oxygen saturation in 2022-06-04 16:04:00 98 /min University of Arterial blood by [facility] [place] [facility] Pulse oximetry Branch Systolic blood 2022-05-01 22:12:00 104 mm[Hg] Univer sity of pressure [place] [facility] Diastolic blood 2022-05-01 22:12:00 69 mm[Hg] Unive rsity of pressure [place] [facility] Heart rate 2022-05-01 22:12:00 71 /min Universi ty [facility] [place] [facility] Respiratory rate 2022-05-01 22:12:00 14 /min Univ ersity of [place] [facility] Oxygen saturation in 2022-05-01 22:12:00 100 /min University of Arterial blood by [place] [facility] tru Pulse oximetry Branch Body temperature 2022-05-01 20:31:00 36.17 Tammy Univ ersity [facility] [place] [facility] Body weight 2022-05-01 20:31:00 58.968 kg Universi ty [facility] [place] [facility] BMI 2022-05-01 20:31:00 21.63 kg/m2 Universi ty [facility] [place] [facility] Systolic blood 2022-02-14 22:26:00 142 mm[Hg] Univer sity of pressure [facility] Diastolic blood 2022-02-14 22:26:00 89 mm[Hg] Unive rsity of pressure [facility] Heart rate 2022-02-14 22:26:00 68 /min Universi ty [facility] Body temperature 2022-02-14 22:26:00 37.56 Tammy Univ ersity of [facility] Respiratory rate 2022-02-14 22:26:00 17 /min [facility] Body height 2022-02-14 22:26:00 165.1 cm Universi ty [facility] Body weight 2022-02-14 22:26:00 63.504 kg Universi ty [facility] BMI 2022-02-14 22:26:00 23.30 [facility] in 2022-02-14 22:26:00 100 /min [facility] Arterial blood by [facility] [place] [facility] Pulse oximetry Branch BP Systolic 2022-03-31 16:54:00 117 mm[Hg] BP Diastolic 2022-03-31 16:54:00 80 mm[Hg] Weight Measured 2022-03-31 16:54:00 131.40 pounds Height Measured 2022-03-31 16:54:00 67.00 inches Body Temperature 2022-03-31 16:54:00 98.40 degrees Heart Rate 2022-03-31 16:54:00 85.00 /min Respiratory Rate 2022-03-31 16:54:00 18.00 /min BP Systolic 2019-12-16 09:49:00 143 mm[Hg] BP Diastolic 2019-12-16 09:49:00 94 mm[Hg] Weight Measured 2019-12-16 09:49:00 138.80 pounds Height Measured 2019-12-16 09:49:00 67.00 inches Body Temperature 2019-12-16 09:49:00 98.90 degrees Heart Rate 2019-12-16 09:49:00 71.00 /min Respiratory Rate 2019-12-16 09:49:00 BP Systolic 2019-10-30 10:30:00 128 mm[Hg] BP Diastolic 2019-10-30 10:30:00 79 mm[Hg] Weight Measured 2019-10-30 10:30:00 137.00 pounds Height Measured 2019-10-30 10:30:00 67.00 inches Body Temperature 2019-10-30 10:30:00 98.80 degrees Heart Rate 2019-10-30 10:30:00 79.00 /min Respiratory Rate 2019-10-30 10:30:00 16.00 /min Procedures Procedure Date / Time Performed Performing Clinician Sourc e XR SHOULDER 2+ VW LEFT 2023-04-13 18:05:05 Hood [facility] CONSENT/REFUSAL FOR 2023-04-13 16:08:19 Doctor Unassigned, No Un iversity of [place] DIAGNOSIS AND Name Medical Branch TREATMENT XR HAND <3 VW RIGHT 2023-02-04 16:02:00 Shaquille Bello [facility] ASSIGNMENT OF BENEFITS 2023-02-04 15:53:20 Doctor Unassigned, No [facility] Medical Branch CONSENT/REFUSAL FOR 2023-02-04 15:02:12 Doctor Unassigned, No Un iversity of [place] DIAGNOSIS AND Name Medical Branch TREATMENT XR CHEST 2 VW 2022-12-17 22:34:33 Yesenia Varma [facility] RAPID INFLUENZA A/B 2022-12-17 21:26:00 Yesenia Varma [facility] COVID-19 (ID NOW RAPID 2022-12-17 21:26:00 Yesenia Varma [facility] [place] TESTING) Medical Branch CONSENT/REFUSAL FOR 2022-12-17 21:13:30 Doctor Unassigned, No Un [facility] [place] DIAGNOSIS AND Name Medical Branch TREATMENT CONSENT/REFUSAL FOR 2022-06-25 17:12:35 Doctor Unassigned, No Un [facility] [place] DIAGNOSIS AND Name Medical Branch TREATMENT COVID-19 (ID NOW RAPID 2022-06-04 16:38:00 Shaquille Bello [facility] TESTING) Medical Branch CONSENT/REFUSAL FOR 2022-06-04 15:47:54 Doctor Unassigned, No Un [facility] [place] DIAGNOSIS AND Name Medical Branch TREATMENT CT HEAD WO CONTRAST 2022-05-01 21:27:54 Kate Browne [facility] [place] XR CHEST 2 VW 2022-05-01 21:17:46 Kate Browne [facility] POCT TEST 2022-05-01 21:07:00 Kate Browne [facility] Medical Branch LIPASE 2022-05-01 21:01:00 Kate Browne [facility] TROPONIN I 2022-05-01 21:01:00 Kate Browne [facility] COMP. METABOLIC PANEL 2022-05-01 21:01:00 Kate Browne [facility] ([id number]) [facility] CBC WITH DIFF 2022-05-01 21:01:00 Kate Browne [facility] URINALYSIS 2022-05-01 21:01:00 Kate Browne [facility] HB ECG ROUTINE & 2022-05-01 20:48:28 Kate Browne [facility] RHYTHM STRIP [facility] Branch CONSENT/REFUSAL FOR 2022-05-01 20:19:16 Doctor [facility]igned, No [facility] Branch TREATMENT CT CERVICAL SPINE WO 2022-02-15 00:00:41 Hood Prince [facility] CONTRAST [facility] CT LUMBAR SPINE WO 2022-02-15 00:00:41 Hood Prince [facility] CONTRAST [facility] CT THORACIC SPINE WO 2022-02-15 00:00:41 Hood Prince [facility] POCT TEST 2022-02-14 23:03:00 Hood Prince [facility] NOTICE OF PRIVACY 2022-02-14 22:22:55 Doctor Unassigned, No [facility] CONSENT/REFUSAL FOR 2022-02-14 22:18:40 Doctor Unassigned, No [facility] [place] [facility] Name [facility] TREATMENT [id number] Colposcopy 2019-12-16 00:00:00 Cervix Bx Cervix endocrv Curtg Plan of Care Planned Activity Planned Date Details Comments Source Goal Plan of Care Note [code = 52224-0] Goal Plan of Care Note [code = 80239-6] Goal Plan of Care Note [code = 60873-2] Goal Plan of Care Note [code = 27389-9] Goal Plan of Care Note [code = 25375-8] Goal Plan of Care Note [code = 36748-7] Goal Plan of Care Note [code = 97640-5] Goal Plan of Care Note [code = 92989-9] Goal Plan of Care Note [code = 42562-9] Goal Plan of Care Note [code = 41969-3] Encounters Start End Encounter Admission Attending Care Care Encounter Source Date/Time Date/Time Type Type Clinicians Facility Department ID 2023-04-13 2023-04-13 Emergency X Hood [facility]IN[facility] ERT [id number] Univers 11:43:00 14:18:00 ity of [facility] 2023-04-13 2023-04-13 Emergency Hood Prince [facility] [id number] Univers 11:43:00 14:18:00 Melba PALACIOS [id number] i ty [facility] [id number] [facility] [id number] [address] 2023-02-16 2023-02-16 Outpatient SFA SFA [id number] Will 08:17:37 08:17:37 [id number] F A[place] 2023-02-10 2023-02-10 Outpatient SFA SFA [id number] Will 10:15:59 10:15:59 0527 F A[place] 2023-02-08 2023-02-08 Outpatient SFA SFA [id number] Will 10:30:21 10:30:21 0525 F A[place] 2023-02-04 2023-02-04 Emergency X [facility] ERT [id number] Univers 10:11:00 11:21:00 SHAQUILLE ity of [facility] 2023-02-04 2023-02-04 Emergency [facility] [id number] Univers 10:11:00 11:21:00 Shaquille PALACIOS 350.1.13.10 ity [facility] [id number] [facility] [id number] [address] 2023-01-19 2023-01-19 Outpatient SFA SFA [id number] Will 08:05:39 08:05:39 0505 F A[place] 2022-12-17 2022-12-17 Emergency X [facility] ERT [id number] Univers 16:28:00 19:29:00 , YESENIA graysandip [facility] 2022-12-17 2022-12-17 Emergency [facility] [id number] Univers 16:28:00 19:29:00 , Yesenia PHILIP [id number] i ty of [place] 4.2.7.[address] [facility] [id number] [address] 2022-06-25 2022-06-25 Emergency X [facility] ERT [id number] Univers 12:24:00 13:04:00 KARLA tee [facility] 2022-06-25 2022-06-25 Emergency [facility] [id number] Univers 12:24:00 13:04:00 Karla PALACIOS [id number] ity [facility] [id number] [facility] [id number] [address] 2022-06-04 2022-06-04 Emergency [facility] [id number] Univers 11:05:00 12:37:00 Shaquille PALAICOS 350.1.13.10 ity of [place] [address] [facility] [id number] [address] 2022-06-04 2022-06-[address] [facility] ERT [id number] Univers 11:05:00 12:37:00 SHAQUILLE tee [facility] 2022-05-01 2022-05-01 [facility] ERT [id number] Univers 15:33:00 17:19:00 KATE tee [facility] 2022-05-01 2022-05-01 Emergency [facility] [id number] Univers 15:33:00 17:19:00 Kate PALACIOS 350.1.13.10 ity of [place] 4.2.7.[address] [facility] [id number] [address] 2022-03-31 2022-03-31 Outpatient [id number] 00:00:00 00:00:00 Visit [id number] 2022-02-14 2022-02-14 Emergency Suresh, K [facility] [id number] Univers 17:28:00 19:30:00 Melba PALACIOS 350.1.13.10 i ty [place] [facility] 4.2.7.2.686 [facility] [id number] [address] 2022-02-14 2022-02-14 Emergency X SURESH, K [facility] ERT [id number] [facility] 2020-04-30 Letter CELIA Trimble [id number] 00:00:00 00:00:00 (Out) Dania KWON 350.1.13.10 [facility] 4.2.7.2.686 [id number] 2020-04-27 2020-04-27 Emergency Tip [facility] 1.2.840.114 [id number] 14:41:00 16:53:00 Karla Palacios 350.1.13.10 [place] 4.2.7.2.686 [place] [id number] 4 2020-04-27 2020-04-27 Emergency X [facility] ERT [id number] Univers 14:32:00 14:32:00 [facility] 2020-04-27 2020-04-27 Orders Doctor CELIA 1.2.840.114 [id number] 00:00:00 00:00:00 Only Unassigned, DOYLE 350.1.13.10 [place] [address]686 [id number] Results Test Description Test Time Test Comments Results Result Comments Source T. [facility] - [place] 2023-02-14 14:45:00 Test Item Value Reference Range Interpretation Comme nts T. [facility] - PA (test NON-REACTIVE NON-REACTIVE UNLE SS OTHERWISE INDICATED, code = 80953) ALL TESTING PE RFORMED AT [facility], [address] [address] CONTRACT LOADER: Sai MARCHATO Hand [id number] CAP ACCREDITATION N O. [id number] RPR REFLEX TO T. [facility] - [id number] 05:06:21 Test Item Value Reference Range Interpretation Comments RPR (test code = REACTIVE NON-REACTIVE A SCREENING RPR 68744) REACTIVE. SEE B MELY FOR REFLEX TP-PA RPR TITER (test code 1:16 TITER NOT INDIC. H = 3500) CT/NG, NAAT, [id number] 15:28:01 Test Item Value Reference Range Interpretation Comments CHLAMYDIA, NAAT, POSITIVE NEGATIVE A Testing is performed with URINE (test code Debra ARIC 6800/8800 = 89175) systems usingre al-time polymerase nori n reaction (PCR) method. GONORRHEA, NAAT, NEGATIVE NEGATIVE Testing is performed with URINE (test code Debra ARIC 6800/8800 = 77894) systems usingre al-time polymerase nori n reaction (PCR) method. A negative result does not exclude low level infection , specimensamplin g error, or collection erro r. UNLESS OTHERWISE INDIC ATED, ALL TESTING PERFORM ED AT [facility], [place] [address] LABORATORY DIRE CTOR: Sai DUQUE NUMBER [id number] CAP ACCREDITATION N O. [id number] HIV 1/2 4TH GEN, RFLX [id number] 05:41:53 Test Item Value Reference Range Interpretation Comments HIV 1/2 4TH GEN, RFLX CONF (test NON-REACTIVE NON-REACTIVE code = 3514) [id number] 05:24:08 Test Item Value Reference Range Interpretation Comments RPR RESULT (test code = 3501) REACTIVE NON-REACTIVE A RPR TITER (test code = 3500) 1:16 TITER NOT INDIC. H T. [facility] - [id number] 15:22:11 Test Item Value Reference Range Interpretation Comments T. P[facility] - PA REACTIVE NON-REACTIVE A UNLESS OTH ERWISE (test code = 15078) INDICATE D, ALL TESTING PERFORMED AT [facility] [address] [place] [address] ARMEN ESSENCE DIRECTOR: Sai MAR MARTY NUMBER [id number] CAP ACCREDITATION N O. [id number] CULTURE, [id number] 10:01:06SPECIMEN NUMBER: [id number] CULTURE, URINE SPECIMEN NUMBER: [id number] SPECIMEN COMMENT: URINE SOURCE:URINE REPORT STATUS: FINAL ISOLATE NUMBER 1: ORGANISM: 01/21/2023 >100,000 CFU/ML GRAM NEGATIVE BA CILLI IDENTIFICATION: 01/23/2023 ESCHERICHIA SPECIES ESCHERICHIA SP. AMOXICILLIN/CA SENSITIVE <=8/4AMPICILLIN SENSITIVE <=8CEFAZOLIN SENSITIVE <=2CEFTRIAXONE SENSITIVE <=1CIPROFLOXACIN SENSITIVE <=1LEVOFLOXACIN SENSITIVE <=2NITROFURANTOIN SENSITIVE <=32PIP/TAZOBAC SENSITIVE <=16TETRACYCLINE SENSITIVE <=4TOBRAMYCIN SENSITIVE <=4TRIMETH/SULFA SENSITIVE <=2/38 NOTE: NUMBERS DISPLAYED REPRESENT MINIMUM INHIBITORY CONCENTRATION (BRIANNE) WHICH IS EXPRESSED IN MCG/ML. CT/NG, NAAT, [id number] 14:00:43 Test Item Value Reference Range Interpretation Comments CHLAMYDIA, NEGATIVE NEGATIVE Assay methodol ogy is nucleic NAAT, URINE acid amplificat ion by (test code = transcriptionme diated 76632) amplification ( TMA) utilizing the Aptima Comb o 2 Assay. A negative result does not exclude low lev el infection, specimensamplin g error, or collection erro r. GONORRHEA, NEGATIVE NEGATIVE Assay methodol ogy is nucleic NAAT, URINE acid amplificat ion by (test code = transcriptionme diated 81544) amplification ( TMA) utilizing the Aptima Comb o 2 Assay. A negative result does not exclude low lev el infection, specimensamplin g error, or collection erro r. RPR REFLEX TO T. PALL[facility] - [id number] 06:16:29 Test Item Value Reference Range Interpretation Comments RPR (test code = REACTIVE NON-REACTIVE A SCREENING RPR 26376) REACTIVE. SEE B ELOW FOR REFLEX TP-PA RPR TITER (test code 1:16 TITER NOT INDIC. H = 3500) HIV 1/2 4TH GEN, RFLX [id number] 03:55:25 Test Item Value Reference Range Interpretation Comments HIV 1/2 4TH GEN, RFLX CONF (test NON-REACTIVE NON-REACTIVE code = 3514) TROPONIN [id number] 21:36:51 Test Item Value Reference Interpretation Comments Range TROPONIN I (test 0.002 ng/mL See_Comment [Automated code = 1371615336) message] The system which generated this result transmitted reference range : <=0.034. The reference range was not used to interpret this result as normal/abnormal . ROHIT (test code = Reference (Normal) ROHIT) Range (defined by the 99th percentile reference limit): <= 0.034 ng/mL Note: Cardiac troponin begins to rise 3-4 hours after the onset of ischemia. Repeat in 4-6 hours if the sample was drawn within 3-4 hours of the onset of the symptom and found normal. Diagnosis of myocardial injury is made with acute changes in cTn concentrations with at least one serial sample above the 99th percentile upper reference limit (URL), taken together with the patient's clinical presentation. Biotin has been reported to cause a negative bias, interpret results relative to patient's use of biotin. Lab Interpretation Normal (test code = 69389-2) [facility]. METABOLIC PANEL (39081)2022-05-01 21:25:29 Test Item Value Reference Range Interpretation Comments NA (test code = 137 mmol/L 135-145 3171873855) K (test code = 4.0 mmol/L 3.5-5 8337327122) CL (test code = 106 mmol/L 98-108 8242811545) CO2 TOTAL (test code = 25 mmol/L 23-31 0537530056) AGAP (test code = 2-16 4741088405) BUN (test code = 10 mg/dL 7-23 1531809216) GLUCOSE (test code = 135 mg/dL 70-110 H 1151293614) CREATININE (test code = 0.58 mg/dL 0.5-1.04 7762823900) TOTAL BILI (test code = 0.6 mg/dL 0.1-1.0 4842920831) CALCIUM (test code = 8.4 mg/dL 8.6-10.6 L 5118906199) T PROTEIN (test code = 6.2 g/dL 6.3-8.2 L 6298164543) ALBUMIN (test code = 4.1 g/dL 3.5-5 1530975741) ALK PHOS (test code = 60 U/L 34-122 1152702955) ALTv (test code = 17 U/L 5-35 1742-6) AST(SGOT) (test code = 20 U/L 13-40 9883204730) eGFR (test code = mL/min/1.73m2 7043769228) ROHIT (test code = ROHIT) Association of Glomerular Filtration Rate (GFR) and Staging of Kidney Disease* + --+ --+ ------+| GFR (mL/min/1.73 m2) ?| With Kidney Damage ?| ?Without Kidney Damage+ --------+ --------+ +| ?>90 ?| ?Stage one ?| ? Normal ?+ ---+ ---+ -------+| ?60-89 ?| ?Stage two ?| ? Decreased GFR ? + --+ --+ ------+| ?30-59 ?| ?Stage three ?| ? Stage three ? + --+ --+ ------+| ?15-29 ?| ?Stage four ? | ? Stage four ?+ ---+ ---+ -------+| ?<15 (or dialysis) ? ?| ?Stage five ? | ? Stage five ?+ ---+ ---+ -------+ *Each stage assumes the associated GFR level has been in effect for at least three months. ?Stages 1 to 5, with or without kidney disease, indicate chronic kidney disease. Notes: Determination of stages one and two (with eGFR >59mL/min/1.73 m2) requires estimation of kidney damage for at least three months as defined by structural or functional abnormalities of the kidney, manifested by either:Pathological abnormalities or Markers of kidney damage (including abnormalities in the composition of the blood or urine or abnormalities in imaging tests). Lab Interpretation Abnormal (test code = 05190-9) [facility] 21:25[facility]09 Test Item Value Reference Range Interpretation Comments LIPASE (test code = 7054201827) 45 U/L 0-220 Lab Interpretation (test code = Normal 00731-4) [facility] WITH [id number] 21:13:09 Test Item Value Reference Range Interpretation Comments WBC (test code = See_Comment H [Automated 6690-2) message] The system which generated this result transmit anna reference range : 4.30 - 11.10 10*3/?L. The reference range was not used to interpret this result as normal/abnormal . RBC (test code = See_Comment [Automated 789-8) message] The system which generated this result transmit anna reference range : 3.93 - 5.25 10*6/?L. The reference range was not used to interpret this result as normal/abnormal . HGB (test code = 15.5 g/dL 11.6-15 H 718-7) HCT (test code = 46.6 % 35.7-45.2 H 4544-3) MCV (test code = 94.0 fL 80.6-95.5 787-2) MCH (test code = 31.3 pg 25.9-32.8 785-6) MCHC (test code = 33.3 g/dL 31.6-35.1 786-4) RDW-SD (test code = 46.0 fL 39-49.9 76149-9) RDW-CV (test code = 13.4 % 12-15.5 788-0) PLT (test code = See_Comment [Automated 777-3) message] The system which generated this result transmit anna reference range : 166 - 358 10*3/ ?L. The reference range was not u sed to interpret th is result as normal/abnormal . MPV (test code = 11.2 fL 9.5-12.9 43379-3) NRBC/100 WBC (test See_Comment [Automat ed code = 0375895681) message] The system which generated this result transmit anna reference range : 0.0 - 10.0 /100 WBCs. The reference range was not used to interpret this result as normal/abnormal . NRBC x10^3 (test code See_Comment [Auto mated = 9891789334) message] The system which generated this result transmit anna reference range : 10*3/?L. The reference range was not used to interpret this result as normal/abnormal . GRAN MAT (NEUT) % 87.8 % (test code = 770-8) IMM GRAN % (test code 0.60 % = 3167646666) LYMPH % (test code = 6.9 % 736-9) MONO % (test code = 3.5 % 5905-5) EOS % (test code = 0.9 % 713-8) BASO % (test code = 0.3 % 706-2) GRAN MAT x10^3(ANC) 12.21 10*3/uL 1.88-7.09 H (test code = 5991371348) IMM GRAN x10^3 (test 0.09 10*3/uL 0-0.06 H code = 3821751085) LYMPH x10^3 (test code 0.96 10*3/uL 1.32-3.29 L = 731-0) MONO x10^3 (test code 0.49 10*3/uL 0.33-0.92 = 742-7) EOS x10^3 (test code = 0.13 10*3/uL 0.03-0.39 711-2) BASO x10^3 (test code 0.04 10*3/uL 0.01-0.07 = 704-7) Lab Interpretation Abnormal (test code = 30116-8) [facility] [id number] 21:07:00 Test Item Value Reference Range Interpretation Comments POCT PREG (test code = 1605) negative On board controls acceptable with present C Line (test code = 3574) POCT PREG LOT # (test code = 3575) [id number] POCT PREG TEST DATE (test 07/17/2023 code = 3576) Lab Interpretation (test code = Normal 55861-3) [facility] AustinCT/NG, NAAT, [id number] 17:52:27 Test Item Value Reference Range Interpretation Comments GONORRHEA, NAAT NEGATIVE NEGATIVE IMPORTA NT NOTICE: SEE (test code = [place] [address]) [email or web address] [email or web address] Note: Assay methodology is nucleic acid amplification b y wet room worker m ediated amplification ( TMA) utilizing the A ptima Combo 2 Assay. CHLAMYDIA, NAAT NEGATIVE NEGATIVE IMPORTA NT NOTICE: SEE (test code = [place] [address]) [email or web address] [email or web address] Note: Assay methodology is nucleic acid amplification b y wet room worker m ediated amplification ( TMA) utilizing the A ptima Combo 2 Assay. UNLESS OTHERWISE INDICATED, ALL TESTING PERFORMED [facility], [facility]. [address] [place] [address] DALTON GALDAMEZ DIRECTOR: DORI GRACE M.D. CLIA NUMBER [id number] CAP ACCREDITATION N O. [id number] CT/NG, NAAT, [id number] 09:03:35 Test Item Value Reference Range Interpretation Comments GONORRHEA, TEST NOT PERFORMED NEGATIVE Unable to perform NAAT (test testing, specim en not code = 42555) received.Charg es adjusted as applicable. CHLAMYDIA, TEST NOT PERFORMED NEGATIVE Unable to perform NAAT (test testing, specim en not code = 68844) received.Charg es adjusted as applicable. UNL ESS OTHERWISE INDIC ATED, ALL [facility]ING [facility], [facility]. [address] [place] [address] ARMEN RUDOLPH DIRECTOR: DORI GRACE M.D. CLIA NUMBER [id number] CAP ACCREDITATION N O. [id number] PAP TEST, THINPREP, [id number] 12:15:39 Test Item Value Reference Range Interpretation Comments SOURCE: (test code = Cervical/End 8001) ocervical SLIDES: (test code = 1 8011) LMP: (test code = 8021) SPECIMEN ADEQUACY: (NOTE) Satisfac tory for (test code = 61416) evaluati on. Endocervical cells/transform ation zone component present. INTERPRETATION: (test NILM/NO ------ code = 24847) EPITH. -------- ABNORMALITY; ------- SEE BELOW ---- NEGATI VE FOR INTRAEPITHELIAL LESION OR MALIGNANCY * Reactive cellul ar changes present (NILM).-------- ------- ------- ------- OTHER COMMENTS: (test (NOTE) Shift in grisel code = 8081) suggestive of bacterial vagin osis. This patient's abnormal pap hi story is reviewed. [employer] COM[employer] INTERNSHIP: Karena (test code = 8101) KobySCT(A [facility])CT(IAC) PATHOLOGIST Isaías Wilson, INTERPRETATION BY: Sai (test code = 8122) LOCATION: (test code (NOTE) [place] ns processed at = 85858) [facility], [address] [facility] [place] [address], Phone: , CLIA: [id number] interpreted at [facility] [place], [address],Pathology Department [address] [place], [place] [facility], [place] [address], Phone: , CLIA: [id number] CPT: (test code = (NOTE) 52576, 881 75 UNLESS 8140) OTHERWISE INDIC ATED, COMPUTER AIDED AND CYTOTECHNOLOGIS T SCREENING PERFO RMED. The Pap test is a screening test with an inherent, but l ow probability of error. Your patient sh ould be reminded to con sult you immediately if she experiences any suspicious sign s or symptoms, regar dless of her Pap test result. An alte rnate report format containing imag es or consolidated pr ior Pap history is avai lable as applicable. VAGINAL PATHOGENS DNA [id number] 15:55:07 Test Item Value Reference Range Interpretation Comments MALISSA SPECIES (test code = 97281) NEGATIVE NEGATIVE G. VAGINALIS (test code = 88744) POSITIVE NEGATIVE A T. VAGINALIS (test code = 02232) NEGATIVE NEGATIVE HPV HIGH RISK WITH GENOTYPE, [id number] 13:46:44 Test Item Value Reference Range Interpretation Comments HPV HIGH RISK INTERP NEGATIVE NEGATIVE (test code = 14458) HPV 16 (test code = NEGATIVE 91559) HPV 18 (test code = NEGATIVE 22908) HPV, HR, OTHER NEGATIVE Testing meth odology is GENOTYPES (test code real-ti me PCR utilizing = 49303) hydrolysis prob es with the [employer] Aric 4800 system. The david t individually de tects genotypes 16 an d 18, as well as the oth er 12 high risk types (31,33,35,39,45 ,51,52,56 ,58,59,66,68). The expected result is negative. A neg ative result does not rule out the presence of HPV not included in the genotype set, a low leve l of infection or sp ecimen sampling error. UNLESS OTHERWISE INDIC ATED, ALL TESTING PERFORM ED ATCLINICAL PATH [facility], [facility]. [address] [place] [address] LABORATORY DIRE CTOR: DORI PINTO M.D. CLIA NUMBER [id number] [place] [id number] HIV 1/2 4TH GEN, RFLX [id number] 04:48:51 Test Item Value Reference Range Interpretation Comments HIV 1/2 4TH GEN, RFLX CONF (test NON-REACTIVE NON-REACTIVE code = 3514) HEPATITIS PANEL, [id number] 04:48:51 Test Item Value Reference Range Interpretation Comments HEPATITIS A IgM (test NON-REACTIVE NON-REACTIVE code = 23933) HEPATITIS B CORE IgM NON-REACTIVE NON-REACTIVE (test code = 4644) HEPATITIS B SURF AG NON-REACTIVE NON-REACTIVE (test code = 2739) HEPATITIS C ANTIBODY NON-REACTIVE NON-REACTIVE (test code = 4675) INTERPRETATION (NOTE) Hepatitis A HEPATITIS A: (test code sero logy shows no = 2552) evidence of acu te hepatitis A. INTERPRETATION (NOTE) Hepatitis B HEPATITIS B: (test code sero logy shows no = 04402) evidence of acu te hepatitis B and no indication of exposure to hepatitis B vir us in the previous ladan eight months. INTERPRETATION (NOTE) Hepatitis C HEPATITIS C: (test code sero logy shows no = 78925) evidence of exposure to hepatitisC viru s at this time. I t can take up to 12 months after exposure tothe hepatitis C vir us for antibodies to become detectab le in the blood in certain patient s. [id number] 00:36:41 Test Item Value Reference Range Interpretation Comments RPR RESULT (test code = 3501) REACTIVE NON-REACTIVE A RPR TITER (test code = 3500) 1:64 TITER NOT INDIC. H POCT [id number] 23:03:00 Test Item Value Reference Range Interpretation Comments POCT PREG (test code = 1605) Negative On board controls acceptable with Present C Line (test code = 3574) POCT PREG LOT # (test code = 3575) [id number] POCT PREG TEST DATE (test 07/17/2023 code = 3576) Lab Interpretation (test code = Normal 37566-0) [facility] [id number] 00:00:00 Test Item Value Reference Range Interpretation Comments DIAGNOSIS: (test code = 8200) (NOTE) COMMENTS: (test code = 8205) (NOTE) MICROSCOPIC DESCRIPTION: (test code = (NOTE) 8210) CLINICAL DATA: (test code = 8401) (NOTE) GROSS DESCRIPTION: (test code = 8220) (NOTE) PATHOLOGIST: (test code = 8250) (NOTE) DISCLAIMER (test code = 41863) (NOTE) CPT: (test code = 8400) (NOTE) PAP TEST, THINPREP, [id number] 00:00:00 Test Item Value Reference Range Interpretation Comments SOURCE: (test code = 8001) Cervical/Vaginal/E ndocervical SLIDES: (test code = 8011) 1 LMP: (test code = 8021) 10/16/2019 SPECIMEN ADEQUACY: (test (NOTE) code = 63048) INTERPRETATION: (test code ASC H/EPITH. = 31801) ABNORMALITY; SEE BELOW OTHER COMMENTS: (test code (NOTE) = 8081) [employer]ANCE INTERNSHIP: (test REZWAN code = 8101) SHANELL LI(ASCP)IA C PATHOLOGIST INTERPRETATION KURT Ocasio: (test code = 8122) Sai LOCATION: (test code = (NOTE) 38452) CPT: (test code = 8140) (NOTE) VAGINAL PATHOGENS DNA [id number] 00:00:00 Test Item Value Reference Range Interpretation Comments MALISSA SPECIES (test code = 17924) NEGATIVE G. VAGINALIS (test code = ) POSITIVE T. VAGINALIS (test code = ) NEGATIVE GC AND CHLAMYDIA AMPLIFIED, [id number] 00:00:00 Test Item Value Reference Range Interpretation Comments GONORRHEA, TMA (test code = 65014) NEGATIVE CHLAMYDIA, TMA (test code = 64892) NEGATIVE HIV AB/AG COMBO RFLX [id number] 00:00:00 Test Item Value Reference Range Interpretation Comments HIV 1/2 4TH GEN, RFLX CONF (test NON-REACTIVE code = 3514) [id number] 00:00:00 Test Item Value Reference Range Interpretation Comments RPR RESULT (test code = NON-REACTIVE 3501) RPR TITER (test code = 3500) NOT INDIC. TITER [id number] 00:00:00 Test Item Value Reference Range Interpretation Comments RPR RESULT (test code = NON-REACTIVE 3501) RPR TITER (test code = 3500) NOT INDIC. TITER HPV HIGH RISK WITH GENOTYPE, [id number] 00:00:00 Test Item Value Reference Range Interpretation Comments HPV HIGH RISK INTERP (test code = POSITIVE 33642) HPV 16 (test code = 51277) NEGATIVE HPV 18 (test code = 92754) POSITIVE HPV, HR, OTHER GENOTYPES (test code NEGATIVE = 70991) HEPATITIS PROFILE (A,B,C)2019-10-31 00:00:00 Test Item Value Reference Range Interpretation Comments HEPATITIS A TOTAL AB (test code NON-REACTIVE = 2725) HEPATITIS B SURF AG (test code = NON-REACTIVE 2739) HEP B CORE TOTAL AB (test code = NON-REACTIVE 2729) HEPATITIS B SURFACE AB (test NON-REACTIVE code = 2737) HEPATITIS C ANTIBODY (test code NON-REACTIVE = 4675) INTERPRETATION HEPATITIS A: (NOTE) (test code = 2552) INTERPRETATION HEPATITIS B: (NOTE) (test code = 59482) INTERPRETATION HEPATITIS C: (NOTE) (test code = 63945) Notes Date/Time Note Provider Source 2023-04-13 Formatting of this note might be differe nt from the original. Amador Hines RN [facility] 14:17:08-00:00 Pt given printed and verbal discharge instructions regarding shoulder strain left, encouraged hydration. Prescriptions provided Discussed ibuprofen and to take with food to lenin id GI distress. Pt verbalized understanding of instructions, pt awake alert oriented, resp reg unlabored, skin w/d, color appropriate for race, moves all ext well,pt encouraged to follow up with pcp. Advised to seek medical attention for new/prolon ged/worsening of symptoms. Awake, alert oriented, resp reg unlabored, skin w/d, pt leaving amb with steady gait, in no apparent distress. 2023-04-13 Formatting of this note might be differe nt from the original. Nhi Haq RN [facility] 11:41:59-00:00 Left shoulder pain x3 days after carrying 55# sa cks at work Electronically signed by Nhi Haq RN at 11:42 AM CDT"
[2023-04-21 11:13] LABS: Absolute Lymphocytes (CBC) 1.4 K/uL (0.7-4.9); Hematocrit 36.3 % (36.0-45.0); Lymphocytes % 26.9 % (15.3-44.8); MCV 94.4 fL (80-100); MPV 8.7 fL (7.6-11.3); RBC Red Blood Cell Count 3.85 M/uL (3.86-4.86)
[2023-04-21] MEDS ORDERED: LORAZEPAM 1 MG TABLET ONE (11:23)
[2023-04-21] MEDS ORDERED: ASPIRIN 81 MG CHEWABLE TABLET ONE ×2 (11:23→11:25)
[2023-04-21] MEDS ORDERED: LABETALOL 20 MG/4ML SYRINGE IV ONE (11:24)
[2023-04-21 11:30] LABS: BUN Blood Urea Nitrogen 13 mg/dL (7-18); Bicarbonate 27 mEq/L (21-32); Glomerular Filtration Rate 118 ml/min (=/>90); Glucose Level 104 mg/dL (74-106); Potassium 3.9 mEq/L (3.5-5.1); Sodium Level 142 mEq/L (136-145)
[2023-04-21 11:35] LABS: Troponin High Sensitivity < 3.0 pg/mL (<58.9)
--- NOTE | 2023-04-21 11:52 | RAD REPORT ---
EXAM DESCRIPTION: RAD - Chest Single View - 04/21/2023 11:45 am CLINICAL HISTORY: CHEST PAIN Chest pain. COMPARISON: <Comparisons> FINDINGS: Portable technique limits examination quality. The lungs are grossly clear. The heart is normal in size. No displaced fractures. IMPRESSION: No acute intrathoracic process suspected.
--- NOTE | 2023-04-21 12:15 | EDPHYS ---
Physician Documentation [facility] Name: Tiffanie Goldman Age: 37 yrs Sex: Female : 1985 Arrival Date: 04/21/2023 Time: 10:30 Bed 5 Private MD: ED Physician Deni Colmenares HPI: 04/21 12:19 This 37 yrs old Female presents to ER via Ambulatory with complaints of Chest cp3 Pain, Anxiety. 10:56 Patient is a 37-year-old female who presents to the ED secondary to chest pain and cp3 shortness of breath that woke her up from sleep at night. The patient endorses that she felt like her throat was going to close and was terrified. Symptoms have been persistent for the last 4 hours although chest pain is improved. Chest pain is described as 3 out of 5 chest discomfort or tightness that radiates to the back. The patient denies shortness of breath. The patient feels like her throat is a little tight and denies any reflux symptoms. Patient does not have any history of hypertension, hypercholesterolemia, coronary disease, family history of heart disease her subjective history. Patient denies fever, chills, nausea, vomiting. The patient does endorse a history of anxiety and has not been on any medications for the last several years. The patient denies any acute stressors overnight. 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 - Social history:: Smoking status: Patient reports the use of cigarette tobacco products, denies chronic smoking, but will smoke occasionally. - Family history:: not pertinent. - Hospitalizations: : No recent hospitalization is reported. ROS: 10:56 Neck: Negative for injury, pain, and swelling, Respiratory: Negative for shortness of cp3 breath, cough, wheezing, and pleuritic chest pain, Abdomen/GI: Negative for abdominal pain, nausea, vomiting, diarrhea, and constipation, Back: Negative for injury and pain, : Negative for injury, bleeding, discharge, and swelling, MS/Extremity: Negative for injury and deformity, Skin: Negative for injury, rash, and discoloration, Neuro: Negative for headache, weakness, numbness, tingling, and seizure. 10:56 Cardiovascular: Positive for chest pain, Negative for edema, palpitations, paroxysmal nocturnal dyspnea. 10:56 Psych: Positive for anxiety. 10:56 All other systems are negative. Exam: 10:59 Constitutional: This is a well developed, well nourished patient who is awake, alert, cp3 and in no acute distress. Head/Face: Normocephalic, atraumatic. Eyes: Pupils equal round and reactive to light, extra-ocular motions intact. Lids and lashes normal. Conjunctiva and sclera are non-icteric and not injected. Cornea within normal limits. Periorbital areas with no swelling, redness, or edema. ENT: Nares patent. No nasal discharge, no septal abnormalities noted. Tympanic membranes are normal and external auditory canals are clear. Oropharynx with no redness, swelling, or masses, exudates, or evidence of obstruction, uvula midline. Mucous membranes moist. Neck: Trachea midline, no thyromegaly or masses palpated, and no cervical lymphadenopathy. Supple, full range of motion without nuchal rigidity, or vertebral point tenderness. No Meningismus. Chest/axilla: Normal chest wall appearance and motion. Nontender with no deformity. No lesions are appreciated. Cardiovascular: Regular rate and rhythm with a normal S1 and S2. No gallops, murmurs, or rubs. Normal PMI, no JVD. No pulse deficits. Respiratory: Lungs have equal breath sounds bilaterally, clear to auscultation and percussion. No rales, rhonchi or wheezes noted. No increased work of breathing, no retractions or nasal flaring. Abdomen/GI: Soft, non-tender, with normal bowel sounds. No distension or tympany. No guarding or rebound. No evidence of tenderness throughout. Skin: Warm, dry with normal turgor. Normal color with no rashes, no lesions, and no evidence of cellulitis. MS/ Extremity: Pulses equal, no cyanosis. Neurovascular intact. Full, normal range of motion. Neuro: Awake and alert, GCS 15, oriented to person, place, time, and situation. Cranial nerves II-XII grossly intact. Motor strength 5/5 in all extremities. Sensory grossly intact. Cerebellar exam normal. Normal gait. Psych: Awake, alert, with orientation to person, place and time. Behavior, mood, and affect are within normal limits. Vital Signs: 10:38 BP 149 / 101; Pulse 90; Resp 16; Temp 98.1; Pulse Ox 100% on R/A; Weight 63.5 kg; iw Height 5 ft. 1 in. ; Pain 4/10; 11:18 BP 144 / 95; Pulse 70; Resp 16 S; Pulse Ox 100% on R/A; aa5 11:35 BP 135 / 86; Pulse 57; Resp 16 S; Pulse Ox 100% on R/A; aa5 12:15 BP 138 / 85; Pulse 60; Resp 16 S; Pulse Ox 98% on R/A; aa5 10:38 Body Mass Index 26.45 (63.50 kg, 154.94 cm) iw 10:38 Pain Scale: Adult iw MDM: 10:59 Differential diagnosis: abnormal EKG, coronary artery disease chest wall pain, cp3 costochondritis, gastroesophageal reflux disease (GERD), pneumonia. Consideration of Admission/Observation Escalation of care including admission/observation considered. Hospitalization considered. Patient discussed admission with patient. after shared decision making patient refuses admission endorsing she prefer outpatient follow-up. I considered the following discharge prescriptions or medication management in the emergency department Medications were administered in the Emergency Department. See MAR. Independent interpretation of the following test(s) in the Emergency Department night monitor: rate is 65 beats/min, Rhythm is normal sinus rhythm, EKG interpreted by me at 10:54 AM: Normal sinus rhythm, rate of 63 QT interval 380, no evidence of acute [place]. External Records Reviewed: PDMP reviewed negative. Scoring Tools HEART Score: History: Slightly Suspicious (0) ECG: Normal (0) Age: < or = 45 years (0) Risk Factors: 1 or 2 Risk factors (1) Troponin: < or = 1 x Normal limit (0) Total Score = 1 PERC Rule for PE Age > /= 50 No (0) HR > /= 100 No (0) O2 Sat Room Air < 95% No (0) Unilateral leg swelling No (0) Hemoptysis No (0) Recent surgery or trauma </= 4 weeks ago, requiring treatment with General Anesthesia No (0) Prior PE or DVT No (0) Hormone use No (0). ED course: Ativan 1 mg p.o. given for acute anxiety, metoprolol labetalol 10 mg IV given for elevated blood pressure.. 11:02 ED course: Patient with low risk heart score and is PERC negative.. cp3 11:17 Patient medically screened. cp3 11:22 Data reviewed: vital signs, nurses notes, lab test result(s), EKG, radiologic studies. cp3 Response to treatment: the patient's symptoms have markedly improved after treatment. ED course: . 12:18 ED course: Reviewed results with patient and family member at bedside all questions cp3 addressed and answered patient stable for outpatient follow-up. 04/21 10:54 Order name: Troponin High Sensitivity; Complete Time: 11:41 cp3 04/21 10:54 Order name: Basic Metabolic Panel; Complete Time: 11:41 cp3 04/21 10:54 Order name: CBC with Diff; Complete Time: 11:29 cp3 04/21 10:54 Order name: Chest Single View XRAY; Complete Time: 12:04 cp3 04/21 10:54 Order name: EKG; Complete Time: 10:55 cp3 04/21 10:54 Order name: Cardiac monitoring; Complete Time: 11:06 cp3 04/21 10:54 Order name: EKG - Nurse/Tech; Complete Time: 10:56 cp3 04/21 10:54 Order name: IV Saline Lock; Complete Time: 11:14 cp3 04/21 10:54 Order name: Labs collected and sent; Complete Time: 11:14 cp3 04/21 10:54 Order name: O2 Per Protocol; Complete Time: 11:06 cp3 04/21 10:54 Order name: O2 Sat Monitoring; Complete Time: 11:06 cp3 Administered Medications: 11:18 Drug: Aspirin PO Chewable Tablet 324 mg Route: PO; aa5 11:35 Follow up: Response: No adverse reaction aa5 11:18 Drug: LORazepam PO 1 mg Route: PO; aa5 11:35 Follow up: Response: No adverse reaction; Anxiety decreased aa5 11:35 Not Given (BP decreased and HR currently 57bpmm): Labetalol IV 10 mg IV at bolus once aa5 Disposition Summary: 04/21/23 12:15 Discharge Ordered Location: Home cp3 Problem: new cp3 Symptoms: are unchanged cp3 Condition: Stable cp3 Diagnosis - Chest pain, unspecified cp3 - Generalized anxiety disorder cp3 - Essential (primary) hypertension cp3 Followup: cp3 - With: Private Physician - When: - Reason: Continuance of care Discharge Instructions: - Discharge Summary Sheet cp3 - Nonspecific Chest Pain, Adult cp3 - Generalized Anxiety Disorder, Adult cp3 Forms: - Medication Reconciliation Form cp3 - Thank You Letter cp3 - Antibiotic Education cp3 - Prescription Opioid Use cp3 - Patient Portal Instructions cp3 Signatures: Dispatcher [employer] Deni Brizuela MD MD cp3 Norma Whelan, RN RN iw Christina Salas RN RN aa5
--- NOTE | 2023-04-21 12:15 | ER ---
Nurse's Notes [facility] Name: Tiffanie Goldman Age: 37 yrs Sex: Female : 1985 Arrival Date: 04/21/2023 Time: 10:30 Bed 5 Private MD: Diagnosis: Chest pain, unspecified;Generalized anxiety disorder;Essential (primary) hypertension Presentation: 04/21 10:36 Chief complaint: Patient states: woke up at 4 am feeling SOB and had pain in her chest iw then it moved into her back, pain is now in left upper back area, has hx of anxiety but has not been on meds, feels similar to past anxiety attacks. Coronavirus screen: At this time, the client does not indicate any symptoms associated with coronavirus-19. Ebola Screen: Patient negative for fever greater than or equal to 101.5 degrees Fahrenheit, and additional compatible Ebola Virus Disease symptoms Patient denies exposure to infectious person. Patient denies travel to an Ebola-affected area in the 21 days before illness onset. No symptoms or risks identified at this time. Initial Sepsis Screen: Does the patient meet any 2 criteria? No. Patient's initial sepsis screen is negative. Does the patient have a suspected source of infection? No. Patient's initial sepsis screen is negative. Risk Assessment: Do you want to hurt yourself or someone else? Patient reports no desire to harm self or others. Onset of symptoms was April 21, 2023. 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 - Social history:: Smoking status: Patient reports the use of cigarette tobacco products, denies chronic smoking, but will smoke occasionally. - Family history:: not pertinent. - Hospitalizations: : No recent hospitalization is reported. Screenin:40 [facility] ED Fall Risk Assessment (Adult) History of falling in the last 3 months, aa5 including since admission No falls in past 3 months (0 pts) Confusion or Disorientation No (0 pts) Intoxicated or Sedated No (0 pts) Impaired Gait No (0 pts) Mobility Assist Device Used No (0 pt) Altered Elimination No (0 pt) Score/Fall Risk Level 0 - 2 = Low Risk Oriented to surroundings, Maintained a safe environment, Educated pt \T\ family on fall prevention, incl call for assistance when getting out of bed. Abuse screen: Denies threats or abuse. Nutritional screening: No deficits noted. Tuberculosis screening: No symptoms or risk factors identified. Assessment: 10:40 General: Appears uncomfortable, Behavior is cooperative, anxious. Pain: Complains of aa5 pain in chest Pain radiates to back Pain currently is 4 out of 10 on a pain scale. Quality of pain is described as pressure, Is intermittent. Neuro: Level of Consciousness is awake, alert, obeys commands, Oriented to person, place, time, situation. Cardiovascular: Heart tones S1 S2 present Rhythm is regular. Respiratory: Airway is patent Respiratory effort is even, unlabored, Respiratory pattern is regular, symmetrical, Breath sounds are clear bilaterally. GI: Abdomen is round non-distended, Bowel sounds present X 4 quads. Abd is soft and non tender X 4 quads. : No signs and/or symptoms were reported regarding the genitourinary system. EENT: No signs and/or symptoms were reported regarding the EENT system. Derm: Skin is pink, warm \T\ dry. Musculoskeletal: Range of motion: intact in all extremities. 11:18 Reassessment: Patient is alert, oriented x 3, equal unlabored respirations, skin aa5 warm/dry/pink. 11:35 Reassessment: Patient is alert, oriented x 3, equal unlabored respirations, skin aa5 warm/dry/pink. 11:35 General: Appears comfortable, Behavior is calm, cooperative. aa5 12:35 Reassessment: No changes from previously documented assessment. Patient and/or family mb9 updated on plan of care and expected duration. Pain level reassessed. Patient is alert, oriented x 3, equal unlabored respirations, skin warm/dry/pink. Vital Signs: 10:38 BP 149 / 101; Pulse 90; Resp 16; Temp 98.1; Pulse Ox 100% on R/A; Weight 63.5 kg; iw Height 5 ft. 1 in. ; Pain 4/10; 11:18 BP 144 / 95; Pulse 70; Resp 16 S; Pulse Ox 100% on R/A; aa5 11:35 BP 135 / 86; Pulse 57; Resp 16 S; Pulse Ox 100% on R/A; aa5 12:15 BP 138 / 85; Pulse 60; Resp 16 S; Pulse Ox 98% on R/A; aa5 10:38 Body Mass Index 26.45 (63.50 kg, 154.94 cm) iw 10:38 Pain Scale: Adult iw ED Course: 10:31 Patient arrived in ED. mg5 10:31 Deni Colmenares MD is Attending Physician. cp3 10:38 Triage completed. iw 10:38 Arm band placed on. iw 10:40 Patient has correct armband on for positive identification. Bed in low position. Call aa5 light in reach. Side rails up X 1. Client placed on continuous cardiac and pulse oximetry monitoring. NIBP monitoring applied. 10:45 Christina Salas, RN is Primary Nurse. aa5 11:05 Initial lab(s) drawn, sent to lab. Inserted saline lock: 22 gauge in left antecubital iw area, using aseptic technique. Blood collected. Patient maintains SpO2 saturation greater than 95% on room air. 11:47 Chest Single View XRAY In Process Unspecified. EDMS 12:35 No provider procedures requiring assistance completed. IV discontinued, intact, mb9 bleeding controlled, No redness/swelling at site. Pressure dressing applied. Administered Medications: 11:18 Drug: Aspirin PO Chewable Tablet 324 mg Route: PO; aa5 11:35 Follow up: Response: No adverse reaction aa5 11:18 Drug: LORazepam PO 1 mg Route: PO; aa5 11:35 Follow up: Response: No adverse reaction; Anxiety decreased aa5 11:35 Not Given (BP decreased and HR currently 57bpmm): Labetalol IV 10 mg IV at bolus once aa5 Medication: 12:35 VIS not applicable for this client. mb9 Outcome: 12:15 Discharge ordered by . cp3 12:35 Discharged to home ambulatory. mb9 12:35 Condition: stable 12:35 Discharge instructions given to patient, Instructed on discharge instructions, follow up and referral plans. Demonstrated understanding of instructions, follow-up care. 12:35 Patient left the ED. mb9 Signatures: Dispatcher [employer] EDMS Deni Colmenares MD MD cp3 Norma Whelan RN RN iw Christina Salas RN RN aa5 Demetria Garcia RN RN mb9 Marcy Bates 5
[2023-04-21 12:44] VITALS: TEMP 98.1
[2023-04-21 12:49] VITALS: BP 138/85; O2SAT 98
--- NOTE | 2023-04-23 13:06 | EKG ---
Test Date: 2023-04-21 Test Time: 10:54:51 Newspaper Journalist: LORELEI MEASUREMENT RESULTS: Intervals: Rate: 63 MT: 144 QRSD: 74 QT: 380 QTc: 388 [place]: P: 56 MT: 144 QRS: 47 T: 66 INTERPRETIVE STATEMENTS: Normal sinus rhythm Normal ECG Compared to ECG 09/23/2021 13:11:17 Sinus bradycardia no longer present Sinus arrhythmia no longer present T-wave abnormality no longer present Electronically Signed On 04-23-23 13:04:52 CDT by Wojciech Maciel
== END 2023-04-21 12:35 | disposition home or self-care (01) ==
LOC: ER 10:30
DX: R07.89 Other chest pain (principal); F41.1 Generalized anxiety disorder; I10 Essential (primary) hypertension
CPT/HCPCS: 36415; 71045; 80048; 84484; 85025; 93005; 99284

== ENCOUNTER 2023-07-22 11:12 | Emergency (ER) | payer OTHER ==
--- OUTSIDE RECORDS SUMMARY | 2023-07-22 11:15 | XMS REPORT | Continuity of Care Document ---
:1985 Author Organization [facility] t Address [address] [place] [id number] Care Team Providers Name Role Phone Verena CHOU Nikki Primary Care Physician [phone] JAKUB POLO Attending Clinician Unavailable Jakub Polo MD Attending Clinician Hood PRICNE Attending Clinician Unavailable Hood Langford Attending Clinician SHAQUILLE BELLO Attending Clinician Unavailable Shaquille Bello NP Attending Clinician YESENIA VARMA Attending Clinician Unavailable Yesenia Varma MD Attending Clinician KARLA NELSON Attending Clinician Unavailable Karla Nelson DO Attending Clinician KATE BROWNE Attending Clinician Unavailable Kate Negro Attending Clinician Dania Trimble RN Attending Clinician Unavailable Doctor Unassigned, [place] Attending Clinician Unavailable AJKUB POLO Admitting Clinician Unavailable Hood PRINCE Admitting Clinician Unavailable SHAQUILLE BELLO Admitting Clinician Unavailable YESENIA VARMA Admitting Clinician Unavailable KATE BROWNE Admitting Clinician Unavailable Payers Payer Name Policy Type Policy Number Effective Date Expiration Date S mehran [employer] [place] [employer] [id number] 2021 00:00:00 COMMERCIAL [id number] NON-CONTRACT GENERIC MULTIPLAN GENERIC [id number] 2022 00:00:00 [facility] [id number] 2015 CHOICE MEDICAID 00:00:00 Problems Condition Condition Condition Status Onset Resolution Last Treating Co mments Source Name Details Category Date Date Treatment Clinician Date Paranoid Paranoid Disease Active Overview: Un braulio schizophre schizophre 9-10 Formattin ity of cece cece 00:00: g of this [place] 00 note Medical might be Branch different from the original. 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 Allergies, Adverse Reactions, Alerts Allergy Allergy Status Severity Reaction(s) Onset Inactive Treating Comm ents Source Name Type Date Date Clinician NO KNOWN Drug Active Univers ALLERGIE Class ity of S [facility] Social History Social Habit Start Date Stop Date Quantity Comments Source Gender identity Universit y of [facility] Sexual orientation Univer sity of [facility] Alcohol intake 2023-05-08 2023-05-08 Current drinker Unive rsity of 00:00:00 00:00:00 of alcohol [facility] (finding) Branch History of Social 2023-05-08 2023-05-08 Univers ity of function 00:00:00 00:00:00 [facility] Exposure to 2023-01-25 2023-02-04 Not sure [facility] SARS-CoV-2 (event) 00:00:00 10:20:00 [facility] Tobacco use and 2022-12-17 2022-12-17 Smokeless Universit y of exposure 00:00:00 00:00:00 tobacco non-user [facility] Alcohol Comment 2022-12-17 2022-12-17 weekends only Univer sity of 00:00:00 00:00:00 [facility] Sex [birth year] At [birth year] Universit y of 00:00:00 00:00:00 [facility] Smoking Status Start Date Stop Date Source Tobacco smoking consumption Univ ersity [facility] Branch Never smoked tobacco [facility] Medications Ordered Filled Start Stop Current Ordering Indication Dosage Frequency Signature Comments Components Source Medication Medication Date Date Medication? Clinician (SIG) Name Name ibuprofen Yes [id number] 600mg Take 1 Univers 600 mg 7-28 tablet by ity of tablet 00:00: mouth [place] 00 every 6 Medical (six) Branch hours as needed for Pain (scale 4-6). ibuprofen 2022-0 Yes [id number] 600mg Take 1 Univers 600 mg 7-28 tablet by ity of tablet 00:00: mouth [place] 00 every 6 Medical (six) Branch hours as needed for Pain (scale 4-6). ibuprofen 2022-0 2023- No 600mg 600 mg, Uni vers (IBU) 5-21 05-21 Oral, ity of tablet 600 15:45: 15:38 ONCE, 1 [place] as mg 00 :00 dose, On Medical [place] Branch 02/04/23 at 1045, JOSE ELIAS ibuprofen 2022-0 Yes [id number] 600mg Take 1 Univers 600 mg 5-21 tablet by ity of tablet 00:00: mouth [place] 00 every 6 Medical (six) Branch hours as needed for Pain (scale 4-6). ibuprofen 2022-0 Yes [id number] 600mg Take 1 Univers 600 mg 5-21 tablet by ity of tablet 00:00: mouth [place] 00 every 6 Medical (six) Branch hours as needed for Pain (scale 4-6). ibuprofen 2022-0 Yes [id number] 600mg Take 1 Univers 600 mg 5-21 tablet by ity of tablet 00:00: mouth [place] 00 every 6 Medical (six) Branch hours as needed for Pain (scale 4-6). benzonatate 2022-0 Yes [id number] 100mg Take 1 Univers 100 mg 4-02 capsule by ity of capsule 00:00: mouth 3 [place] 00 (three) Medical times Branch daily as needed for Cough. albuterol 2022-0 Yes [id number] 2{puff} Inhale 2 Univers 90 4-02 Puffs ity of mcg/actuati 00:00: every 4 [place] as on inhaler 00 (four) Medical hours as Branch needed for Wheezing or Shortness of Breath. benzonatate 2022-0 2022- No [id number] 100mg Take 1 Univers 100 mg 4-02 05-21 capsule by ity of capsule 00:00: 00:00 mouth 3 [place] 00 :00 (three) Medical times Branch daily as needed for Cough. albuterol 2022-0 2023- No [id number] 2{puff} Inhale 2 Univers 90 4-02 05-21 Puffs ity of mcg/actuati 00:00: 00:00 every 4 [place] inhaler 00 :00 (four) Medical hours as Branch needed for Wheezing or Shortness of Breath. benzonatate Yes [id number] 100mg Take 1 Univers 100 mg 9-18 capsule by ity of capsule 00:00: mouth 3 [place] 00 (three) Medical times Branch daily as needed for Cough. benzonatate Yes [id number] 100mg Take 1 Univers 100 mg 9-18 capsule by ity of capsule 00:00: mouth 3 [place] 00 (three) Medical times Branch daily as needed for Cough. benzonatate 2022- No [id number] 100mg Take 1 Univers 100 mg 9-18 04-02 capsule by ity of capsule 00:00: 00:00 mouth 3 [place] 00 :00 (three) Medical times Branch daily as needed for Cough. predniSONE 2021- No [id number] 20mg Take 1 Univers 20 mg 9-18 09-24 tablet by ity of tablet 00:00: 04:59 mouth in [place] 00 :00 the Medical morning Branch for 5 days. ondansetron 2021- No 4mg 4 mg, Slow Univers (ZOFRAN 8-15 08-15 IV Push, ity of (PF)) 21:45: 21:04 ONCE, 1 [place] injection 4 00 :00 dose, On Medi tru mg Mon Branch 05/01/22 at 1645, JOSE ELIAS NaCl 0.9% 2021- No 1000mL at 999 Uni vers (NS) bolus 8-15 08-15 mL/hr, ity of infusion 21:45: 22:13 1,000 mL, Jean as 1,000 mL 00 :00 IV Medical Infusion, Branch ONCE, 1 dose, On 05/01/22 at 1645, JOSE ELIAS ondansetron Yes [id number] 4mg Take 1 Univers (ZOFRAN) 4 8-15 tablet by ity of mg tablet 00:00: mouth [place] 00 every 8 Medical (eight) Branch hours as needed for Nausea and Vomiting (N/V) for up to 15 doses. ondansetron 2021-2021- No [id number] 4mg Take 1 Univers (ZOFRAN) 4 8-15 09-18 tablet by ity of mg tablet 00:00: 00:00 mouth [place] 00 :00 every 8 Medical (eight) Branch hours as needed for Nausea and Vomiting (N/V) for up to 15 doses. TAKE 1 2021-0 No 20 TABLET BY 7-15 MOUTH ONCE 00:00: DAILY FOR 5 00 DAYS DISSOLVE 1 2021-0 No 4 TABLET IN 7-15 MOUTH EVERY 00:00: 8 HOURS 00 NEEDED TAKE 1 2021-0 No 500 TABLET BY 7-15 MOUTH EVERY 00:00: 8 HOURS FOR 00 10 DAYS TAKE 1 2021-0 No 20 TABLET BY 7-15 MOUTH ONCE 00:00: DAILY FOR 5 00 DAYS TAKE 1 2021-0 No TABLET BY 7-15 MOUTH EVERY 00:00: 12 HOURS 00 FOR 10 DAYS TAKE 1 2021-0 No TABLET BY 7-15 MOUTH EVERY 00:00: 12 HOURS 00 FOR 10 DAYS Dose 2021-0 No 500 Unknown 7-15 00:00: 00 ibuprofen 2021-0 202- No 600mg 600 mg, Uni vers (IBU) 02-15 Oral, ity of tablet 600 00:15: 23:18 ONCE, 1 [place] as mg 00 :00 dose, On Medical [facility] Branch 02/14/22 at 1915, JOSE ELIAS ibuprofen 2021-0 Yes [id number] 600mg Take 1 Univers 600 mg 5-31 tablet by ity of tablet 00:00: mouth [place] 00 every 6 Medical (six) Branch hours as needed for Pain (scale 4-6). ibuprofen 2021-0 Yes [id number] 600mg Take 1 Univers 600 mg 5-31 tablet by ity of tablet 00:00: mouth [place] 00 every 6 Medical (six) Branch hours as needed for Pain (scale 4-6). ibuprofen 2021-0 Yes [id number] 600mg Take 1 Univers 600 mg 5-31 tablet by ity of tablet 00:00: mouth [place] 00 every 6 Medical (six) Branch hours as needed for Pain (scale 4-6). ibuprofen 2022-0 Yes [id number] 600mg Take 1 Univers 600 mg 5-31 tablet by ity of tablet 00:00: mouth [place] 00 every 6 Medical (six) Branch hours as needed for Pain (scale 4-6). methocarbam 2021-0 Yes [id number] 500mg Take 1 Univers oL 500 mg 5-31 tablet by ity o f tablet 00:00: mouth 4 [place] 00 (four) Medical times Branch daily. ibuprofen Yes [id number] 600mg Take 1 Univers 600 mg 5-31 tablet by ity of tablet 00:00: mouth [place] 00 every 6 Medical (six) Branch hours as needed for Pain (scale 4-6). methocarbam Yes [id number] 500mg Take 1 Univers oL 500 mg 5-31 tablet by ity o f tablet 00:00: mouth 4 [place] 00 (four) Medical times Branch daily. ibuprofen 2022- No [id number] 600mg Take 1 Univers 600 mg 5-31 05-21 tablet by ity of tablet 00:00: 00:00 mouth [place] 00 :00 every 6 Medical (six) Branch hours as needed for Pain (scale 4-6). methocarbam 2021- No [id number] 500mg Take 1 Univers oL 500 mg 5-31 09-18 tablet by ity of tablet 00:00: 00:00 mouth 4 [place] 00 :00 (four) Medical times Branch daily. metronidazo 2019-0 No 1mg le 500 mg 2-24 tablet [...] Take 1 Uni vers 4 mg 2-29 09-18 tablet by ity of disintegrat 00:00: 00:00 [place] tablet 00 :00 every 8 Medica l (eight) Branch hours as needed for Nausea and Vomiting (N/V). QUETIAPINE Yes 2 Tab Oral U nivers 25 MG ORAL 9-10 QHSPRN ity of TAB 00:00: [place] 00 Medical Branch RISPERIDONE 2006-0 Yes 1 Tab Oral Univers 2 MG ORAL 9-10 QAM ity of TAB 00:00: [place] 00 Medical Branch QUETIAPINE 2007-0 Yes 2 Tab Oral U nivers 25 MG ORAL 9-10 QHSPRN ity of TAB 00:00: [place] 00 Medical Branch RISPERIDONE 2007-0 Yes 1 Tab Oral Univers 2 MG ORAL 9-10 QAM ity of TAB 00:00: [place] 00 Medical Branch QUETIAPINE 2007-0 Yes 2 Tab Oral U nivers 25 MG ORAL 9-10 QHSPRN ity of TAB 00:00: [place] 00 Medical Branch RISPERIDONE 2007-0 Yes 1 Tab Oral Univers 2 MG ORAL 9-10 QAM ity of TAB 00:00: [place] 00 Medical Branch QUETIAPINE 2007-0 Yes 2 Tab Oral U nivers 25 MG ORAL 9-10 QHSPRN ity of TAB 00:00: [place] 00 Medical Branch RISPERIDONE 2007-0 Yes 1 Tab Oral Univers 2 MG ORAL 9-10 QAM ity of TAB 00:00: [place] 00 Medical Branch QUETIAPINE 2007-0 2023- No 2 Tab Oral Univers 25 MG ORAL 9-10 04-02 QHSPRN ity of TAB 00:00: 00:00 [place] 00 :00 Medical Branch RISPERIDONE 2007-0 2023- No 1 Tab Oral Univers 2 MG ORAL 9-10 04-02 QAM ity of TAB 00:00: 00:00 [place] 00 :00 Medical Branch Vital Signs Vital Name Observation Time Observation Value Comments Source Systolic blood 2023-05-09 00:10:00 149 mm[Hg] Univer sity of pressure [facility] Diastolic blood 2023-05-09 00:10:00 92 mm[Hg] Unive rsity of pressure [facility] Heart rate 2023-05-09 00:10:00 76 /min [facility] Body temperature 2023-05-09 00:10:00 37.5 [facility] Respiratory rate 2023-05-09 00:10:00 16 /min [facility] Body height 2023-05-09 00:10:00 160 cm [facility] Body weight 2023-05-09 00:10:00 60.782 kg [facility] BMI 2023-05-09 00:10:00 23.74 kg/m2 [facility] Oxygen saturation in 2023-05-09 00:10:00 100 /min University of Arterial blood by [place] Medi tru Pulse oximetry Branch Systolic blood 2023-04-13 16:42:00 144 mm[Hg] Univer sity of pressure [place] [facility] Diastolic blood 2023-04-13 16:42:00 99 mm[Hg] Unive rsity of pressure [place] [facility] Heart rate 2023-04-13 16:42:00 65 /min Universi ty of [place] [facility] Body temperature 2023-04-13 16:42:00 36.89 Tammy Univ ersity of [place] [facility] Respiratory rate 2023-04-13 16:42:00 14 /min Univ ersity of [place] [facility] Body height 2023-04-13 16:42:00 165.1 cm Universi ty of [place] [facility] Body weight 2023-04-13 16:42:00 68.04 kg Universi ty of [place] [facility] BMI 2023-04-13 16:42:00 24.96 kg/m2 Universi ty of [place] [facility] Oxygen saturation in 2023-04-13 16:42:00 100 /min University of Arterial blood by [place] Medi tru Pulse oximetry Branch Systolic blood 2023-02-04 16:00:00 136 mm[Hg] Univer sity of pressure [place] [facility] Diastolic blood 2023-02-04 16:00:00 98 mm[Hg] Unive rsity of pressure [place] [facility] Heart rate 2023-02-04 16:00:00 57 /min Universi ty of [place] [facility] Body temperature 2023-02-04 15:09:00 37.22 Tammy Univ ersity of [place] [facility] Respiratory rate 2023-02-04 15:09:00 22 /min Univ ersity of [place] [facility] Body height 2023-02-04 15:09:00 165.1 cm Universi ty of [place] [facility] Body weight 2023-02-04 15:09:00 63.504 kg Universi ty of [place] [facility] BMI 2023-02-04 15:09:00 23.30 kg/m2 Universi ty of [place] [facility] Oxygen saturation in 2023-02-04 15:09:00 100 /min University of Arterial blood by [place] Medi tru Pulse oximetry Branch Systolic blood 2022-12-17 21:22:00 127 mm[Hg] Univer sity of pressure [place] [facility] Diastolic blood 2022-12-17 21:22:00 97 mm[Hg] Unive rsity of pressure [place] [facility] Heart rate 2022-12-17 21:22:00 92 /min Universi ty of [place] [facility] Body temperature 2022-12-17 21:22:00 37.72 Tammy Univ ersity of [place] [facility] Respiratory rate 2022-12-17 21:22:00 16 /min Univ ersity of [place] [facility] Body height 2022-12-17 21:22:00 154.9 cm Universi ty of [place] [facility] Body weight 2022-12-17 21:22:00 63.504 kg Universi ty of [place] [facility] BMI 2022-12-17 21:22:00 26.45 kg/m2 Universi ty of [place] [facility] Oxygen saturation in 2022-12-17 21:22:00 100 /min University of Arterial blood by [place] [facility] Pulse oximetry Branch Systolic blood 2022-06-25 17:19:00 146 mm[Hg] Univer sity of pressure [place] [facility] Diastolic blood 2022-06-25 17:19:00 87 mm[Hg] Unive rsity of pressure [place] [facility] Heart rate 2022-06-25 17:19:00 85 /min Universi ty of [place] [facility] Body temperature 2022-06-25 17:19:00 36.28 Tammy Univ ersity of [place] [facility] Respiratory rate 2022-06-25 17:19:00 20 /min Univ ersity of [place] [facility] Body height 2022-06-25 17:19:00 170.2 cm Universi ty of [place] [facility] Body weight 2022-06-25 17:19:00 58.968 kg Universi ty of [place] [facility] BMI 2022-06-25 17:19:00 20.36 kg/m2 Universi ty of [place] [facility] Oxygen saturation in 2022-06-25 17:19:00 99 /min University of Arterial blood by [place] tru Pulse oximetry Branch Systolic blood 2022-06-04 16:04:00 126 mm[Hg] Univer sity of pressure [place] [facility] Diastolic blood 2022-06-04 16:04:00 92 mm[Hg] Unive rsity of pressure [place] [facility] Heart rate 2022-06-04 16:04:00 72 /min Universi ty of [place] [facility] Body temperature 2022-06-04 16:04:00 36.67 Tammy Univ ersity of [place] [facility] Respiratory rate 2022-06-04 16:04:00 19 /min Univ ersity of [place] [facility] Body height 2022-06-04 16:04:00 162.6 cm Universi ty of [place] [facility] Body weight 2022-06-04 16:04:00 58.968 kg Universi ty of [place] [facility] BMI 2022-06-04 16:04:00 22.31 kg/m2 Universi ty of [place] [facility] Oxygen saturation in 2022-06-04 16:04:00 98 /min University of Arterial blood by [facility] Pulse oximetry Branch Systolic blood 2022-05-01 22:12:00 104 mm[Hg] Univer sity of pressure [place] [facility] Diastolic blood 2022-05-01 22:12:00 69 mm[Hg] Unive rsity of pressure [place] [facility] Heart rate 2022-05-01 22:12:00 71 /min Universi ty of [place] [facility] Respiratory rate 2022-05-01 22:12:00 14 /min Univ ersity of [place] [facility] Oxygen saturation in 2022-05-01 22:12:00 100 /min University of Arterial blood by [facility] Pulse oximetry Branch Body temperature 2022-05-01 20:31:00 36.17 Tammy Univ ersity of [place] [facility] Body weight 2022-05-01 20:31:00 58.968 kg Universi ty of [place] [facility] BMI 2022-05-01 20:31:00 21.63 kg/m2 Universi ty of [place] [facility] Systolic blood 2022-02-14 22:26:00 142 mm[Hg] Univer sity of pressure [place] [facility] Diastolic blood 2022-02-14 22:26:00 89 mm[Hg] Unive rsity of pressure [place] [facility] Heart rate 2022-02-14 22:26:00 68 /min Universi ty of [place] [facility] Body temperature 2022-02-14 22:26:00 37.56 Tammy Univ ersity of [place] [facility] Respiratory rate 2022-02-14 22:26:00 17 /min Univ ersity of [place] [facility] Body height 2022-02-14 22:26:00 165.1 cm [facility] Body weight 2022-02-14 22:26:00 63.504 kg [facility] BMI 2022-02-14 22:26:00 23.30 kg/m2 [facility] Oxygen saturation in 2022-02-14 22:26:00 100 /min [facility] blood by [facility] Pulse oximetry Branch BP Systolic 2022-03-31 16:54:00 [...] Procedure Date / Time Performed Performing Clinician [facility] e ASSIGNMENT OF BENEFITS 2023-05-09 01:22:38 Doctor Unassigned, No [facility] NOTICE OF PRIVACY 2023-05-09 00:08:06 Doctor Unassigned, No [facility] CONSENT/REFUSAL FOR 2023-05-09 00:06:28 Doctor Unassigned, No Un iversity of [place] DIAGNOSIS AND Name Medical Branch TREATMENT XR SHOULDER 2+ VW LEFT 2023-04-13 18:05:05 Hood Prince [facility] CONSENT/REFUSAL FOR 2023-04-13 16:08:19 Doctor Unassigned, No Un iversity of [place] DIAGNOSIS AND Name Medical Branch TREATMENT XR HAND <3 VW RIGHT 2023-02-04 16:02:00 Shaquille Bello [facility] ASSIGNMENT OF BENEFITS 2023-02-04 15:53:20 Doctor Unassigned, No [facility] Name Medical Branch CONSENT/REFUSAL FOR 2023-02-04 15:02:12 Doctor Unassigned, No Un iversity of [place] DIAGNOSIS AND Name Medical Branch TREATMENT XR CHEST 2 VW 2022-12-17 22:34:33 Yesenia Varma [facility] RAPID INFLUENZA A/B 2022-12-17 21:26:00 Yesenia Varma [facility] COVID-19 (ID NOW RAPID 2022-12-17 21:26:00 [facility] [place] [facility] Medical Branch CONSENT/REFUSAL FOR 2022-12-17 21:13:30 Doctor Unassigned, No Un iversity of [place] DIAGNOSIS AND Name Medical Branch TREATMENT CONSENT/REFUSAL FOR 2022-06-25 17:12:35 Doctor Unassigned, No Un iversity of [place] DIAGNOSIS AND Name Medical Branch TREATMENT COVID-19 (ID NOW RAPID 2022-06-04 16:38:00 Shaquille Bello [facility] TESTING) Medical Branch CONSENT/REFUSAL FOR 2022-06-04 15:47:54 Doctor Unassigned, No Un iversity of [place] DIAGNOSIS AND Name Medical Branch TREATMENT CT HEAD WO CONTRAST 2022-05-01 21:27:54 Kate Browne [facility] XR CHEST 2 VW 2022-05-01 21:17:46 Kate Browne [facility] POCT TEST 2022-05-01 21:07:00 Kate Browne [facility] LIPASE 2022-05-01 21:01:00 Kate Browne [facility] TROPONIN I 2022-05-01 21:01:00 Kate Browne [facility] COMP. METABOLIC PANEL 2022-05-01 21:01:00 Kate Browne [facility] ([id number]) Medical Branch CBC WITH DIFF 2022-05-01 21:01:00 Kate Browne [facility] URINALYSIS 2022-05-01 21:01:00 Kate Browne [facility] HB ECG ROUTINE & 2022-05-01 20:48:28 Kate Browne [facility] RHYTHM STRIP [facility] Branch CONSENT/REFUSAL FOR 2022-05-01 20:19:16 Doctor Unassigned, No [facility] Medical Branch TREATMENT CT CERVICAL SPINE WO 2022-02-15 00:00:41 Hood Prince [facility] CONTRAST [facility] CT LUMBAR SPINE WO 2022-02-15 00:00:41 Hood Prince [facility] CONTRAST [facility] Branch CT THORACIC SPINE WO 2022-02-15 00:00:41 Hood Prince [facility] POCT TEST 2022-02-14 23:03:00 Hood Prince [facility] NOTICE OF PRIVACY 2022-02-14 22:22:55 Doctor Unassigned, No Univ [facility] CONSENT/REFUSAL FOR 2022-02-14 22:18:40 Doctor [facility]igned, No [facility] Name Medical Branch TREATMENT [id number] Colposcopy 2019-12-16 00:00:00 Cervix Bx Cervix endocrv Curtg Plan of Care Planned Activity Planned Date Details Comments Source Goal Plan of Care Note [code = 94741-1] Goal Plan of Care Note [code = 72576-9] Goal Plan of Care Note [code = 89618-7] Goal Plan of Care Note [code = 46851-8] Goal Plan of Care Note [code = 18908-0] Goal Plan of Care Note [code = 62461-2] Goal Plan of Care Note [code = 21012-6] Goal Plan of Care Note [code = 53370-5] Goal Plan of Care Note [code = 82215-5] Goal Plan of Care Note [code = 15629-0] Encounters Start End Encounter Admission Attending Care Care Encounter Source Date/Time Date/Time Type Type Clinicians Facility Department ID 2023-05-08 2023-05-08 Emergency X MELANI [facility] ERT [id number] Univers 19:13:00 21:04:00 JAKUB [facility] 2023-05-08 2023-05-08 Emergency Melani [facility] [id number] Univers 19:13:00 21:04:00 Jakub PALACIOS [id number] i ty of [facility] [id number] [facility] [id number] [address] 2023-04-13 2023-04-13 Emergency X Hood PRINCE [facility] ERT [id number] Univers 11:43:00 14:18:00 [facility] 2023-04-13 2023-04-13 Emergency Hood Prince [facility] [id number] Univers 11:43:00 14:18:00 Melba PALACIOS [id number] i ty of [facility] [id number] [facility] [id number] [address] 2023-02-16 2023-02-16 Outpatient SFA SFA [id number] Will 08:17:37 08:17:37 [id number] [facility] 2023-02-10 2023-02-10 Outpatient SFA SFA [id number] Will 10:15:59 10:15:59 0527 [facility] 2023-02-08 2023-02-08 Outpatient SFA SFA [id number] Will 10:30:21 10:30:21 0525 [facility] 2023-02-04 2023-02-04 Emergency [facility] [id number] Univers 10:11:00 11:21:00 SHAQUILLE [facility] 2023-02-04 2023-02-04 [facility] [id number] Univers 10:11:00 11:21:00 Shaquille Parry PHILIP [id number] ity of [place] [id number] [facility] [id number] [address] 2023-01-19 2023-01-19 Outpatient SFA [facility] [id number] Will 08:05:39 08:05:39 0505 F Maurilio 2022-12-17 2022-12-17 Emergency X [facility] ERT [id number] Univers 16:28:00 19:29:00 , YESENIA ity [facility] 2022-12-17 2022-12-17 [facility] [id number] Univers 16:28:00 19:29:00 , Yesenia PHILIP [id number] i ty of [place] 4.2.7.2.[address] [facility] [id number] [address] 2022-06-25 2022-06-25 Emergency [facility] [id number] Univers 12:24:00 13:04:00 KARLA tee [facility] 2022-06-25 2022-06-25 Emergency [facility] [id number] Univers 12:24:00 13:04:00 Karla Benites PHILIP [id number] ity of [place] [id number] [facility] [id number] [address] 2022-06-04 2022-06-04 Emergency [facility] [id number] Univers 11:05:00 12:37:00 Shaquille Parry PHILIP [id number] ity of [place] [id number] [facility] [id number] [address] 2022-06-04 2022-06-04 Emergency [facility] [id number] Univers 11:05:00 12:37:00 SHAQUILLE tee [facility] 2022-05-01 2022-05-01 Emergency [facility] [id number] Univers 15:33:00 17:19:00 KATE tee [facility] 2022-05-01 2022-05-01 Emergency [facility] [id number] Univers 15:33:00 17:19:00 Kate PALACIOS [id number] ity [facility] [id number] [facility] [id number] [address] 2022-03-31 2022-03-31 Outpatient [id number] 00:00:00 00:00:00 Visit [id number] 2022-02-14 2022-02-14 Emergency Hood Prince [facility] [id number] Univers 17:28:00 19:30:00 Melba PALACIOS 350.1.13.10 i ty [facility] 4.2.7.2.686 [facility] [id number] [address] 2022-02-14 2022-02-14 Emergency X Hood PRINCE [facility] ERT [id number] Univers 17:28:00 19:30:00 ity [facility] 2020-04-30 2020-04-30 Letter CELIA Trimble 1.2.840.114 [id number] 00:00:00 00:00:00 (Out) Dania KWON 350.1.13.10 [facility] 4.2.7.2.686 [id number] 2020-04-27 2020-04-27 [facility] 1.2.840.114 [id number] 14:41:00 16:53:00 Karla Palacios 350.1.13.10 [place] 4.2.7.2.686 [place] [id number] [facility] 2020-04-27 2020-04-27 Emergency X [facility] ERT [id number] Univers 14:32:00 14:32:00 ity [facility] 2020-04-27 2020-04-27 Arik YANG 1.2.840.114 [id number] 00:00:00 00:00:00 Only UnassignedDOYLE 350.1.13.10 [facility] 4.2.7.2.686 [id number] Results Test Description Test Time Test Comments Results Result Comments Source T. [facility] - [place] 2023-02-14 14:45:00 Test Item Value Reference Range Interpretation Comme nts T. PALLIDUM - PA (test NON-REACTIVE NON-REACTIVE UNLE SS OTHERWISE INDICATED, code = 06731) ALL TESTING PE RFORMED AT [facility] [employer], [place]. 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 [id number] RPR REFLEX TO T. PALL[facility] - [id number] 05:06:21 Test Item Value Reference Range Interpretation Comments RPR (test code = REACTIVE NON-REACTIVE A SCREENING RPR 87552) REACTIVE. SEE B MELY FOR REFLEX TP-PA RPR TITER (test code 1:16 TITER NOT INDIC. H = 3500) CT/NG, NAAT, [id number] 15:28:01 Test Item Value Reference Range Interpretation Comments CHLAMYDIA, NAAT, POSITIVE NEGATIVE A Testing is performed with URINE (test code Debra ARIC 6800/8800 = 14368) systems usingre al-time polymerase nori n reaction (PCR) method. GONORRHEA, NAAT, NEGATIVE NEGATIVE Testing is performed with URINE (test code Debra ARIC 6800/8800 = 55131) systems usingre al-time polymerase nori n reaction (PCR) method. A negative result does not exclude low level infection , specimensamplin g error, or collection erro r. UNLESS OTHERWISE INDIC ATED, ALL TESTING PERFORM ED AT [facility] [employer] [facility], [place]. [address] [place] [address] 8437 LABORATORY DIRE CTOR: Sai DUQUEIA NUMBER [id number] CAP ACCREDITATION N O. [id number] HIV 1/2 4TH GEN, RFLX [id number] 05:41:53 Test Item Value Reference Range Interpretation Comments HIV 1/2 4TH GEN, RFLX CONF (test NON-REACTIVE NON-REACTIVE code = 3514) [id number] 05:24:08 Test Item Value Reference Range Interpretation Comments RPR RESULT (test code = 3501) REACTIVE NON-REACTIVE A RPR TITER (test code = 3500) 1:16 TITER NOT INDIC. H T. PALL[facility]UM - [id number] 15:22:11 Test Item Value Reference Range Interpretation Comments T. P[facility]UM - PA REACTIVE NON-REACTIVE A UNLESS OTH ERWISE (test code = 38057) INDICATE D, ALL TESTING PERFORMED AT [facility], [facility]. [address] [place] [address] DIRECTOR: ENRIKE MAURICE M.D. [place] NUMBER [id number] CAP ACCREDITATION N O. [id number] CULTURE, [id number] 10:01:06SPECIMEN NUMBER: [id number] CULTURE, URINE SPECIMEN NUMBER: [id number] SPECIMEN COMMENT: URINE SOURCE:URINE REPORT STATUS: FINAL ISOLATE NUMBER 1: ORGANISM: 01/21/2023 >100,000 CFU/ML GRAM NEGATIVE BA CILLI IDENTIFICATION: 01/23/2023 ESCHERICHIA SPECIES ESCHERICHIA SP. AMOXICILLIN/CA SENSITIVE <=8/4AMPICILLIN SENSITIVE <=8CEFAZOLIN SENSITIVE <=2CEFTRIAXONE SENSITIVE <=1CIPROFLOXACIN SENSITIVE <=1LEVOFLOXACIN SENSITIVE <=2NITROFURANTOIN SENSITIVE <=32PIP/TAZOBAC SENSITIVE <=16TETRACYCLINE SENSITIVE <=4TOBRAMYCIN SENSITIVE <=4TRIMETH/SULFA SENSITIVE <=2/38 NOTE: NUMBERS DISPLAYED REPRESENT MINIMUM INHIBITORY CONCENTRATION (BRIANNE) WHICH IS EXPRESSED IN MCG/ML. CT/NG, NAAT, [id number] 14:00:43 Test Item Value Reference Range Interpretation Comments CHLAMYDIA, NEGATIVE NEGATIVE Assay methodol ogy is nucleic NAAT, URINE acid amplificat ion by (test code = transcriptionme Macheened 52262) amplification ( TMA) utilizing the Aptima Comb o 2 Assay. A negative result does not exclude low lev el infection, specimensamplin g error, or collection erro r. GONORRHEA, NEGATIVE NEGATIVE Assay methodol ogy is nucleic NAAT, URINE acid amplificat ion by (test code = transcriptionme diated 83961) amplification ( TMA) utilizing the Aptima Comb o 2 Assay. A negative result does not exclude low lev el infection, specimensamplin g error, or collection erro r. RPR REFLEX TO T. PALLIDUM - [id number] 06:16:29 Test Item Value Reference Range Interpretation Comments RPR (test code = REACTIVE NON-REACTIVE A SCREENING RPR 93019) REACTIVE. SEE B ELOW FOR REFLEX TP-PA RPR TITER (test code 1:16 TITER NOT INDIC. H = 3500) HIV 1/2 4TH GEN, RFLX [id number] 03:55:25 Test Item Value Reference Range Interpretation Comments HIV 1/2 4TH GEN, RFLX CONF (test NON-REACTIVE NON-REACTIVE code = 3514) TROPONIN [id number] 21:36:51 Test Item Value Reference Interpretation Comments Range TROPONIN I (test 0.002 ng/mL See_Comment [Automated code = 6332556525) message] The system which generated this result [...] biotin. Lab Interpretation Normal (test code = 43608-4) [facility] (88316)2022-05-01 21:25:29 Test Item Value Reference Range Interpretation Comments NA (test code = 137 mmol/L 135-145 5434586928) K (test code = 4.0 mmol/L 3.5-5 2509816853) CL (test code = 106 mmol/L 98-108 0686535034) CO2 TOTAL (test code = 25 mmol/L 23-31 7742449282) AGAP (test code = 2-16 1796180583) BUN (test code = 10 mg/dL 7-23 8858517735) GLUCOSE (test code = 135 mg/dL 70-110 H 5626341375) CREATININE (test code = 0.58 mg/dL 0.5-1.04 3422394551) TOTAL BILI (test code = 0.6 mg/dL 0.1-1.7 7556939797) CALCIUM (test code = 8.4 mg/dL 8.6-10.6 L 1579253441) T PROTEIN (test code = 6.2 g/dL 6.3-8.2 L 4773441758) ALBUMIN (test code = 4.1 g/dL 3.5-5 7270962453) ALK PHOS (test code = 60 U/L 34-122 3634092540) ALTv (test code = 17 U/L 5-35 2-6) AST(SGOT) (test code = 20 U/L 13-40 7683601596) eGFR (test code = mL/min/1.73m2 4614406833) ROHIT (test code = ROHIT) Association of [...] tests). Lab Interpretation Abnormal (test code = 44938-6) [facility]22-[facility] 21:25:09 Test Item Value Reference Range Interpretation Comments LIPASE (test code = 6691227809) 45 U/L 0-220 Lab Interpretation (test code = Normal 87707-0) [facility]CBC WITH [id number] 21:13:09 Test Item Value Reference Range Interpretation [...] RDW-SD (test code = 46.0 fL 39-49.9 41302-2) RDW-CV (test code = 13.4 % 12-15.5 788-0) PLT (test code = See_Comment [Automated 777-3) message] The system which generated this result transmit anna reference range : 166 - 358 10*3/ ?L. The reference range was not u sed to interpret th is result as normal/abnormal . MPV (test code = 11.2 fL 9.5-12.9 66696-2) NRBC/100 WBC (test See_Comment [Automat ed code = 9380534882) message] The system which generated this result transmit anna reference range : 0.0 - 10.0 /100 WBCs. The reference range was not used to interpret this result as normal/abnormal . NRBC x10^3 (test code See_Comment [Auto mated = 9316170205) message] The system which generated this result transmit anna reference range : 10*3/?L. The reference range was not used to interpret this result as normal/abnormal . GRAN MAT (NEUT) % 87.8 % (test code = 770-8) IMM GRAN % (test code 0.60 % = 4478298354) LYMPH % (test code = 6.9 % 736-9) MONO % (test code = 3.5 % 5905-5) EOS % (test code = 0.9 % 713-8) BASO % (test code = 0.3 % 706-2) GRAN MAT x10^3(ANC) 12.21 10*3/uL 1.88-7.09 H (test code = 2432338047) IMM GRAN x10^3 (test 0.09 10*3/uL 0-0.06 H code = 7413595204) LYMPH x10^3 (test code 0.96 10*3/uL 1.32-3.29 L = 731-0) MONO x10^3 (test code 0.49 10*3/uL 0.33-0.92 = 742-7) EOS x10^3 (test code = 0.13 10*3/uL 0.03-0.39 711-2) BASO x10^3 (test code 0.04 10*3/uL 0.01-0.07 = 704-7) Lab Interpretation Abnormal (test code = 70838-6) [facility] HospitalPOCT [id number] 21:07:00 Test Item Value Reference Range Interpretation Comments POCT PREG (test code = 1605) negative On board controls acceptable with present C Line (test code = 3574) POCT PREG LOT # (test code = 3575) [id number] POCT PREG TEST DATE (test 07/17/2023 code = 3576) Lab Interpretation (test code = Normal 47972-7) [facility] HospitalCT/NG, NAAT, [id number] 17:52:27 Test Item Value Reference Range Interpretation Comments GONORRHEA, NAAT NEGATIVE NEGATIVE IMPORTA NT NOTICE: SEE (test code = [place] [address]) [email or web address] Note: Assay methodology is nucleic acid amplification b y rn vascular m ediated amplification ( TMA) utilizing the A ptima Combo 2 Assay. CHLAMYDIA, NAAT NEGATIVE NEGATIVE IMPORTA NT NOTICE: SEE (test code = [place] [address]) [email or web address] Note: Assay methodology is nucleic acid amplification b y rn vascular m ediated amplification ( TMA) utilizing the A ptima Combo 2 Assay. UNLESS OTHERWISE INDICATED, ALL TESTING PERFORMED [facility] NIC[facility] PATHOLOGY [facility] [employer], [facility]. [address] [place] [address] [facility] DIRECTOR: DORI GRACE M.D. CLIA NUMBER [id number] CAP ACCREDITATION N O. [id number] CT/NG, NAAT, [id number] 09:03:35 Test Item Value Reference Range Interpretation Comments GONORRHEA, TEST NOT PERFORMED NEGATIVE Unable to perform NAAT (test testing, specim en not code = 61278) received.Charg es adjusted as applicable. CHLAMYDIA, TEST NOT PERFORMED NEGATIVE Unable to perform NAAT (test testing, specim en not code = 84100) received.Charg es adjusted as applicable. UNL ESS OTHERWISE INDIC ATED, ALL TESTING PER [facility] PATH [facility], [facility]. [address] [place] [address] LABOR ATOR DIRECTOR: DORI GRACE M.D. CLIA NUMBER [id number] CAP ACCREDITATION N O. [id number] PAP TEST, THINPREP, [id number] 12:15:39 Test Item Value Reference Range Interpretation Comments SOURCE: (test code = Cervical/End 8001) ocervical SLIDES: (test code = 1 8011) LMP: (test code = 8021) SPECIMEN ADEQUACY: (NOTE) Satisfac tory for (test code = 77723) evaluati on. Endocervical cells/transform ation zone component present. INTERPRETATION: (test NILM/NO ------ code = 80253) EPITH. -------- ABNORMALITY; ------- SEE BELOW ---- NEGATI VE FOR INTRAEPITHELIAL LESION OR MALIGNANCY * Reactive cellul ar changes present (NILM).-------- ------- ------- ------- OTHER COMMENTS: (test (NOTE) Shift in grisel code = 8081) suggestive of bacterial vagin osis. This patient's abnormal pap hi story is reviewed. MDS NURSE: Karena (test code = 8101) MADDIE Whalen([facility])CT([facility]) PATHOLOGIST Isaías Wilson, INTERPRETATION BY: Sai (test code = 8122) LOCATION: (test code (NOTE) Specime ns processed at = 38747) [facility] [employer] [facility], [address] [place] [address], Phone: , CLIA: [id number] interpreted at [facility] PathJD [facility], [address] [facility] Low r [facility] [place] Set on [facility], [place] [address], Phone: , CLIA: [id number] CPT: (test code = (NOTE) 17601, 881 75 UNLESS 8140) OTHERWISE INDIC ATED, [...] avai lable as applicable. VAGINAL PATHOGENS DNA [id number] 15:55:07 Test Item Value Reference Range Interpretation Comments MALISSA SPECIES (test code = ) NEGATIVE NEGATIVE G. VAGINALIS (test code = ) POSITIVE NEGATIVE A T. VAGINALIS (test code = ) NEGATIVE NEGATIVE HPV HIGH RISK WITH GENOTYPE, [id number] 13:46:44 Test Item Value Reference Range Interpretation Comments HPV HIGH RISK INTERP NEGATIVE NEGATIVE (test code = 79667) HPV 16 (test code = NEGATIVE 05632) HPV 18 (test code = NEGATIVE 31084) HPV, HR, OTHER NEGATIVE Testing meth odology is GENOTYPES (test code real-ti me PCR utilizing = 52828) hydrolysis prob es with the [employer] Aric 4800 system. The david t individually [...] ATED, ALL TESTING PERFORM ED ATCLINICAL PATH [facility], [facility]. [address] [place] [address] LABORATORY DIRE CTOR: DORI PINTO M.D. CLIA NUMBER [id number] [facility] [place] [id number] HEPATITIS PANEL, [id number] 04:48:51 Test Item Value Reference Range Interpretation Comments HEPATITIS A IgM (test NON-REACTIVE NON-REACTIVE code = 24068) HEPATITIS B CORE IgM NON-REACTIVE NON-REACTIVE (test code = 4644) HEPATITIS B SURF AG NON-REACTIVE NON-REACTIVE (test code = 2739) HEPATITIS C ANTIBODY NON-REACTIVE NON-REACTIVE (test code = 4675) INTERPRETATION (NOTE) Hepatitis A HEPATITIS A: (test code sero logy shows no = 2552) evidence of acu te hepatitis A. INTERPRETATION (NOTE) Hepatitis B HEPATITIS B: (test code sero logy shows no = 61419) evidence of acu te hepatitis B and no indication of exposure to hepatitis B vir us in the previous ladan eight months. INTERPRETATION (NOTE) Hepatitis C HEPATITIS C: (test code sero logy shows no = 51660) evidence of exposure to hepatitisC viru s at this time. I t can take up to 12 months after exposure tothe hepatitis C vir us for antibodies to become detectab le in the blood in certain patient s. HIV 1/2 4TH GEN, RFLX [id number] 04:48:51 Test Item Value Reference Range Interpretation Comments HIV 1/2 4TH GEN, RFLX CONF (test NON-REACTIVE NON-REACTIVE code = 3514) [id number] 00:36:41 Test Item Value Reference Range Interpretation Comments RPR RESULT (test code = 3501) REACTIVE NON-REACTIVE A RPR TITER (test code = 3500) 1:64 TITER NOT INDIC. H POCT [id number] 23:03:00 Test Item Value Reference Range Interpretation Comments POCT PREG (test code = 1605) Negative On board controls acceptable with Present C Line (test code = 3574) POCT PREG LOT # (test code = 3575) [id number] POCT PREG TEST DATE (test 07/17/2023 code = 3576) Lab Interpretation (test code = Normal 69666-0) [facility] [id number] 00:00:00 Test Item Value Reference Range Interpretation Comments DIAGNOSIS: (test code = 8200) (NOTE) COMMENTS: (test code = 8205) (NOTE) MICROSCOPIC DESCRIPTION: (test code = (NOTE) 8210) CLINICAL DATA: (test code = 8401) (NOTE) GROSS DESCRIPTION: (test code = 8220) (NOTE) PATHOLOGIST: (test code = 8250) (NOTE) DISCLAIMER (test code = 52162) (NOTE) CPT: (test code = 8400) (NOTE) PAP TEST, THINPREP, [id number] 00:00:00 Test Item Value Reference Range Interpretation Comments SOURCE: (test code = 8001) Cervical/Vaginal/E ndocervical SLIDES: (test code = 8011) 1 LMP: (test code = 8021) 10/16/2019 SPECIMEN ADEQUACY: (test (NOTE) code = 52089) INTERPRETATION: (test code ASC H/EPITH. = 15537) ABNORMALITY; SEE BELOW OTHER COMMENTS: (test code (NOTE) = 8081) MDS NURSE: (test REZWAN code = 8101SHANELL FAYE(ASCP)IA C PATHOLOGIST INTERPRETATION Ailyn Dietrich BY: (test code = 8122) Sai LOCATION: (test code = (NOTE) 19345) CPT: (test code = 8140) (NOTE) VAGINAL PATHOGENS DNA [id number] 00:00:00 Test Item Value Reference Range Interpretation Comments MALISSA SPECIES (test code = ) NEGATIVE G. VAGINALIS (test code = ) POSITIVE T. VAGINALIS (test code = ) NEGATIVE GC AND CHLAMYDIA AMPLIFIED, [id number] 00:00:00 Test Item Value Reference Range Interpretation Comments GONORRHEA, TMA (test code = 10646) NEGATIVE CHLAMYDIA, TMA (test code = 92369) NEGATIVE HIV AB/AG COMBO RFLX [id number] 00:00:00 Test Item Value Reference Range Interpretation Comments HIV 1/2 4TH GEN, RFLX CONF (test NON-REACTIVE code = 3514) [id number] 00:00:00 Test Item Value Reference Range Interpretation Comments RPR RESULT (test code = NON-REACTIVE 3501) RPR TITER (test code = 3500) NOT INDIC. TITER [id number] 00:00:00 Test Item Value Reference Range Interpretation Comments RPR RESULT (test code = NON-REACTIVE 3501) RPR TITER (test code = 3500) NOT INDIC. TITER HPV HIGH RISK WITH GENOTYPE, [id number] 00:00:00 Test Item Value Reference Range Interpretation Comments HPV HIGH RISK INTERP (test code = POSITIVE 19994) HPV 16 (test code = 58279) NEGATIVE HPV 18 (test code = 53124) POSITIVE HPV, HR, OTHER GENOTYPES (test code NEGATIVE = 29749) HEPATITIS PROFILE (A,B,C)2019-10-31 00:00:00 Test Item Value [...] INTERPRETATION HEPATITIS B: (NOTE) (test code = 02949) INTERPRETATION HEPATITIS C: (NOTE) (test code = 35030)"
[2023-07-22] MEDS ORDERED: KETOROLAC 30 MG/ML INJ ONE (11:41)
[2023-07-22] MEDS ORDERED: ONDANSETRON 4 MG/2 ML VIAL ONE (11:42)
[2023-07-22] MEDS ORDERED: NA CHLORIDE 0.9% 1,000 ML ONE (11:42)
[2023-07-22 11:47] LABS: Absolute Lymphocytes (CBC) 1.7 K/uL (0.7-4.9); Hematocrit 41.1 % (36.0-45.0); Lymphocytes % 26.4 % (15.3-44.8); MCV 93.4 fL (80-100); MPV 9.1 fL (7.6-11.3); Platelets 265 thou/uL (152-406)
[2023-07-22 11:48] LABS: Specific Gravity 1.022 (1.005-1.030)
[2023-07-22 11:51] LABS: Specific Gravity 1.022 (1.005-1.030); Urine Bacteria <20 /HPF (<20); Urine Bilirubin NEGATIVE (Negative); Urine Blood Negative (Negative); Urine Clarity Turbid (Clear); Urine Color Yellow (Yellow); Urine Glucose NEGATIVE (Negative); Urine Mucus Slight /HPF (None Seen); Urine Protein TRACE (Negative); Urine Urobilinogen Normal (Normal)
[2023-07-22 12:03] LABS: Albumin 3.9 g/dL (3.4-5.0); Bilirubin Total 0.5 mg/dL (0.2-1.0); Potassium 3.8 mEq/L (3.5-5.1); Protein, Total 7.8 g/dL (6.4-8.2)
--- NOTE | 2023-07-22 12:52 | RAD REPORT ---
EXAM DESCRIPTION: CT - Abdomen Pelvis W Contrast - 07/22/2023 12:18 pm CLINICAL HISTORY: ABD PAIN COMPARISON: Abdomen Pelvis W Contrast dated 06/30/2021; Abdomen Pelvis W Contrast dated 09/17/2016 TECHNIQUE: Thin cut axial CT imaging of the abdomen and pelvis was performed following intravenous a dministration of 100 mL Isovue 300. Multiplanar reformats were generated and reviewed. All CT scans are performed using dose optimization technique as appropriate and may include automated exposure control or mA/KV adjustment according to patient size. FINDINGS: No suspicious findings in the lung bases. The liver again shows small well-circumscribed fluid density lesions largest measuring 1.2 cm in the caudate lobe, not well characterized, but suggestive of small cysts. Adrenal glands, spleen, and panc reas show no suspicious findings. Gallbladder is decompressed limiting evaluation. . Symmetric renal function is seen with no hydronephrosis or suspicious renal mass. No dilated bowel loops or bowel wall thickening. Appendix is normal in appearance. No free air, fluid collection or inflammatory stranding. Trace pelvic free fluid again seen. Decreased number of cystic lesions involving bilateral adnexal regions, with a residual marginally enhancing 2 cm right adnexal cyst. No hernia, mass or bulky lymphadenopathy. The urinary bladder is without significant finding. No suspicious bony findings. IMPRESSION: Trace pelvic free fluid. Decreased number of cystic lesions involving both adnexal regions with a residual 2 cm right adnexal marginally enhancing cyst. Findings are likely physiologic nature.
--- NOTE | 2023-07-22 13:07 | ER ---
Nurse's Notes [facility] Name: Tiffanie Goldman Age: 37 yrs Sex: Female : 1985 Arrival Date: 07/22/2023 Time: 11:12 Bed 15 Private MD: Diagnosis: Lower abdominal pain, unspecified Presentation: 07/22 11:24 Chief complaint: Patient states: Right flank pain that radiates to RLQ onset at 0645. cm10 Pt states that the pain has improved but now it feels sore. Pt denies nausea, vomiting and diarrhea. Coronavirus screen: Vaccine status: Patient reports being unvaccinated. Client denies travel out of the [place] in the last 14 days. Ebola Screen: Patient denies travel to an Ebola-affected area in the 21 days before illness onset. No symptoms or risks identified at this time. Initial Sepsis Screen: Does the patient meet any 2 criteria? No. Patient's initial sepsis screen is negative. Does the patient have a suspected source of infection? No. Patient's initial sepsis screen is negative. Risk Assessment: Do you want to hurt yourself or someone else? Patient reports no desire to harm self or others. Onset of symptoms was July 22, 2023. 11:24 Method Of Arrival: Ambulatory cm10 11:24 Acuity: ISH 3 cm10 Historical: - Allergies: 11:25 No Known Allergies; cm10 - PMHx: 11:25 Umbilical hernia; cm10 - PSHx: 11:25 Ligation of fallopian tube; cm10 - Immunization history:: Adult Immunizations unknown. - Social history:: Smoking status: Patient reports the use of cigarette tobacco products, denies chronic smoking, but will smoke occasionally. Screenin:19 [facility] ED Fall Risk Assessment (Adult) History of falling in the last 3 months, kc6 including since admission No falls in past 3 months (0 pts) Confusion or Disorientation No (0 pts) Intoxicated or Sedated No (0 pts) Impaired Gait No (0 pts) Mobility Assist Device Used No (0 pt) Altered Elimination No (0 pt) Score/Fall Risk Level 0 - 2 = Low Risk. Abuse screen: Denies threats or abuse. Denies injuries from another. Nutritional screening: No deficits noted. Tuberculosis screening: No symptoms or risk factors identified. Assessment: 11:42 General: Appears in no apparent distress. comfortable, Behavior is calm, cooperative, kc6 appropriate for age. Pain: Complains of pain in rigth flank Pain currently is 2 out of 10 on a pain scale. Neuro: Level of Consciousness is awake, alert, obeys commands, Oriented to person, place, time, situation, Appropriate for age. Cardiovascular: Capillary refill < 3 seconds. Respiratory: Airway is patent Trachea midline Respiratory effort is even, unlabored, Respiratory pattern is regular, symmetrical. GI: Abdomen is flat, non-distended, Bowel sounds present X 4 quads. Abd is soft and non tender X 4 quads. Patient currently denies diarrhea, nausea, vomiting. : No signs and/or symptoms were reported regarding the genitourinary system. Urine is clear, cloudy. EENT: No signs and/or symptoms were reported regarding the EENT system. Derm: No signs and/or symptoms reported regarding the dermatologic system. Skin is intact, is healthy with good turgor, Skin is pink, warm \T\ dry. Musculoskeletal: No signs and/or symptoms reported regarding the musculoskeletal system. Circulation, motion, and sensation intact. Capillary refill < 3 seconds, Range of motion: intact in all extremities. 12:42 Reassessment: Patient appears in no apparent distress at this time. No changes from kc6 previously documented assessment. Patient and/or family updated on plan of care and expected duration. Pain level reassessed. Patient is alert, oriented x 3, equal unlabored respirations, skin warm/dry/pink. 13:07 Reassessment: d/c pending IV fluid completion. kc6 Vital Signs: 11:24 BP 145 / 96; Pulse 70; Resp 16; Temp 99.3; Pulse Ox 100% ; Weight 65.77 kg; Height 5 cm10 ft. 6 in. ; Pain 2/10; 12:56 BP 132 / 81; Pulse 68; Resp 16 S; Pulse Ox 100% on R/A; kc6 11:24 Body Mass Index 23.40 (65.77 kg, 167.64 cm) cm10 11:24 Pain Scale: Adult cm10 ED Course: 11:14 Patient arrived in ED. mr 11:15 [facility] 11:15 Edvin Young MD is Attending Physician. [facility] 11:16 Mcintosh, Flores, RN is Primary Nurse. kc6 11:20 Patient has correct armband on for positive identification. Placed in gown. Bed in low kc6 position. Call light in reach. Side rails up X 1. Client placed on continuous cardiac and pulse oximetry monitoring. NIBP monitoring applied. 11:25 Triage completed. cm10 11:26 Arm band placed on Patient placed in an exam room, on a stretcher. cm10 11:41 CBC with Diff Sent. kc6 11:41 CMP Sent. kc6 11:41 Lipase Sent. kc6 11:41 Test, Urine Sent. kc6 11:41 Urinalysis w/ reflexes Sent. kc6 11:41 Inserted saline lock: 22 gauge in right antecubital area, using aseptic technique. kc6 Blood collected. Patient maintains SpO2 saturation greater than 95% on room air. 12:20 CT Abd/Pelvis - IV Contrast Only In Process Unspecified. EDMS 13:19 No provider procedures requiring assistance completed. IV discontinued, intact, kc6 bleeding controlled, No redness/swelling at site. Pressure dressing applied. Administered Medications: 11:41 Drug: NS 0.9% IV 1000 ml IV at 1 bolus Per protocol; 1000 mL bolus Route: IV; Rate: 1 kc6 bolus; Site: right antecubital; 13:18 Follow up: Response: No adverse reaction; IV Status: Completed infusion; IV Intake: kc6 800ml 11:41 Drug: TORadol - Ketorolac IVP 15 mg IVP once Route: IVP; Site: right antecubital; kc6 13:14 Follow up: Response: No adverse reaction; Pain is decreased kc6 11:41 Drug: Ondansetron IVP 4 mg IVP once; over 2 minutes Route: IVP; Site: right antecubital;kc6 13:14 Follow up: Response: No adverse reaction kc6 Medication: 13:19 VIS not applicable for this client. kc6 Intake: 13:18 IV: 800ml; Total: 800ml. kc6 Outcome: 13:07 Discharge ordered by MD. hernandez 13:19 Discharged to home ambulatory, with significant other, kc6 13:19 Condition: improved 13:19 Discharge instructions given to patient, Instructed on discharge instructions, follow up and referral plans. Demonstrated understanding of instructions, follow-up care, 13:19 Patient left the ED. kc6 Addendum: 07/26/2023 10:07 Addendum: Culture Results: Positive urine culture. Bacteria is resistant to, has j l7 intermediate sensitivity, or is not tested against prescribed antibiotics. Report given to MARLEN for further evaluation and then to senior data quality analyst for follow up with patient. Phone call Attempt #1 Straight to voice mail, voice mail not set up. 10:40 Addendum: Culture Results: Phone call Attempt #2 Straight to voice mail, voice mail not j l7 set up. 13:12 Addendum: Culture Results: Phone call Attempt #3 Straight to voice mail, voice mail not j l7 set up. Signatures: Dispatcher [employer] EDND Demetria Richardson, Reg Reg mr Calista Guy, RN RN jl7 Debra Hyman FNP FNP [email or web address] Flores Mcintosh, RN RN kc6 Bhakti Marcano RN RN cm10
--- NOTE | 2023-07-22 13:07 | EDPHYS ---
Physician Documentation [facility] Name: Tiffanie Goldman Age: 37 yrs Sex: Female : 1985 Arrival Date: 07/22/2023 Time: 11:12 Bed 15 Private MD: ED Physician Edvin Young HPI: 07/22 11:24 This 37 yrs old Female presents to ER via Ambulatory with complaints of jh7 Abdominal Pain. 11:24 The patient presents with abdominal pain right lower quadrant. Onset: The jh7 symptoms/episode began/occurred acutely. The symptoms radiate to the right flank. Associated signs and symptoms: none. Patient reports that she woke up at 645 this morning with severe right flank and right lower quadrant pain. She reports that the pain made her have difficulty walking. She denies fever, urinary symptoms, nausea, vomiting, diarrhea, or any other symptoms. No past medical problems. No allergies.. Historical: - Allergies: 11:25 No Known Allergies; cm10 - PMHx: 11:25 Umbilical hernia; cm10 - PSHx: 11:25 Ligation of fallopian tube; cm10 - Immunization history:: Adult Immunizations unknown. - Social history:: Smoking status: Patient reports the use of cigarette tobacco products, denies chronic smoking, but will smoke occasionally. ROS: 11:24 Constitutional: Negative for fever, chills, and weight loss, Eyes: Negative for injury, jh7 pain, redness, and discharge, Neck: Negative for injury, pain, and swelling, Cardiovascular: Negative for chest pain, palpitations, and edema, Respiratory: Negative for shortness of breath, cough, wheezing, and pleuritic chest pain, MS/Extremity: Negative for injury and deformity, Skin: Negative for injury, rash, and discoloration, Neuro: Negative for headache, weakness, numbness, tingling, and seizure, 11:24 Abdomen/GI: Positive for abdominal pain, Negative for nausea, vomiting, and diarrhea, 11:24 : Positive for flank pain, Negative for urinary symptoms, 11:24 All other systems are negative, Exam: 11:24 Constitutional: This is a well developed, well nourished patient who is awake, alert, jh7 and in no acute distress. Head/Face: Normocephalic, atraumatic. Cardiovascular: Regular rate and rhythm with a normal S1 and S2. No gallops, murmurs, or rubs. Normal PMI, no JVD. No pulse deficits. Respiratory: Lungs have equal breath sounds bilaterally, clear to auscultation and percussion. No rales, rhonchi or wheezes noted. No increased work of breathing, no retractions or nasal flaring. Back: No spinal tenderness. No costovertebral tenderness. Full range of motion. Skin: Warm, dry with normal turgor. Normal color with no rashes, no lesions, and no evidence of cellulitis. MS/ Extremity: Pulses equal, no cyanosis. Neurovascular intact. Full, normal range of motion. Neuro: Awake and alert, GCS 15, oriented to person, place, time, and situation. Normal gait. 11:24 Abdomen/GI: Inspection: abdomen appears normal, Bowel sounds: normal, Palpation: soft, mild abdominal tenderness, in the right lower quadrant, Vital Signs: 11:24 BP 145 / 96; Pulse 70; Resp 16; Temp 99.3; Pulse Ox 100% ; Weight 65.77 kg; Height 5 cm10 ft. 6 in. ; Pain 2/10; 12:56 BP 132 / 81; Pulse 68; Resp 16 S; Pulse Ox 100% on R/A; kc6 11:24 Body Mass Index 23.40 (65.77 kg, 167.64 cm) cm10 11:24 Pain Scale: Adult cm10 MDM: 11:15 Patient medically screened. [facility] 12:55 Differential diagnosis: appendicitis, cholecystitis, non-specific abd pain, [facility] Pyelonephritis, Ureterolithiasis, urinary tract infection. Data reviewed: vital signs, nurses notes, lab test result(s), radiologic studies, CT scan. I considered the following discharge prescriptions or medication management in the emergency department Medications were administered in the Emergency Department. See MAR. Counseling: I had a detailed discussion with the patient and/or guardian regarding the historical points, exam findings, and any diagnostic results supporting the discharge/admit diagnosis, to return to the emergency department if symptoms worsen or persist or if there are any questions or concerns that arise at home. Response to treatment: the patient's symptoms have markedly improved after treatment. 07/22 11:26 Order name: CBC with Diff; Complete Time: 12:38 [facility] 07/22 11:26 Order name: CMP; Complete Time: 12:38 [facility] 07/22 11:26 Order name: Lipase; Complete Time: 12:38 [facility] 07/22 11:26 Order name: Test, Urine; Complete Time: 12:38 [facility] 07/22 11:26 Order name: Urinalysis w/ reflexes; Complete Time: 12:38 [facility] 07/22 11:56 Order name: Urine Culture [facility] 07/22 11:26 Order name: CT Abd/Pelvis - IV Contrast Only; Complete Time: 12:54 [facility] 07/22 11:26 Order name: IV Saline Lock; Complete Time: 11:41 [facility] 07/22 11:26 Order name: Labs collected and sent; Complete Time: 11:41 [facility] Administered Medications: 11:41 Drug: NS 0.9% IV 1000 ml IV at 1 bolus Per protocol; 1000 mL bolus Route: IV; Rate: 1 kc6 bolus; Site: right antecubital; 13:18 Follow up: Response: No adverse reaction; IV Status: Completed infusion; IV Intake: kc6 800ml 11:41 Drug: TORadol - Ketorolac IVP 15 mg IVP once Route: IVP; Site: right antecubital; kc6 13:14 Follow up: Response: No adverse reaction; Pain is decreased kc6 11:41 Drug: Ondansetron IVP 4 mg IVP once; over 2 minutes Route: IVP; Site: right antecubital;kc6 13:14 Follow up: Response: No adverse reaction kc6 Disposition: 07/23 09:03 Co-signature as Attending Physician, Evdin Young MD I reviewed the patient's care rn provided by the Advanced Practice Provider and agree with the diagnosis and treatment plan. Disposition Summary: 07/22/23 13:07 Discharge Ordered Notes: Location: Home [facility] Problem: new [facility] Symptoms: have improved jh7 Condition: Stable [facility] Diagnosis - Lower abdominal pain, unspecified 7 Followup: [facility] - With: Private Physician - When: 2 - 3 days - Reason: Recheck today's complaints Discharge Instructions: - Discharge Summary Sheet [facility] - Abdominal Pain, Adult 7 Forms: - Medication Reconciliation Form 7 - Thank You Letter 7 - Patient Portal Instructions [facility] - Leadership Thank You Letter [facility] Signatures: Dispatcher [employer] Edvin Cunningham MD MD rn Hadash, Jennifer, ADVERTISING SPECIALIST ADVERTISING SPECIALIST jh7 Flores Mcintosh, RN RN kc6 Bhakti Marcano, RN RN cm10
[2023-07-22 13:41] VITALS: TEMP 99.3; O2SAT 100
[2023-07-22 13:43] VITALS: BP 132/81
== END 2023-07-22 13:19 | disposition home or self-care (01) ==
LOC: ER 11:12
DX: R10.31 Right lower quadrant pain (principal); F17.210 Nicotine dependence, cigarettes, uncomplicated
CPT/HCPCS: 96361; 87088; 85025; 81001; 87086; 36415; 81025; 87077; 87186; 83690; 80053; 74177; 96375; 96374; 99285; Q9967; J2405; J7030

== ENCOUNTER 2024-07-22 11:08 | Emergency (ER) | payer OTHER, SELFPAY ==
--- OUTSIDE RECORDS SUMMARY | 2024-07-22 11:12 | XMS REPORT | Continuity of Care Document ---
Author Name Unknown Address [address] [facility] [place] [address] [facility] thconnect Address [address] [facility] [address] [place] [address] Care Team Providers Care Balloon Tester Name Role Phone [facility] JOSÉ ANTONIO, [facility] Primary Care Physician JAKUB POLO Attending Clinician Unavailable Jakub Polo MD Attending Clinician [phone] Hood PRINCE Attending Clinician Unavailable Hood Langford Attending Clinician [phone] SHAQUILLE BELLO Attending Clinician Unavailable Shaquille Bello NP Attending Clinician [phone] YESENIA VARMA Attending Clinician Unavailab Yesenia Berumen MD Attending Clinician [phone] KARLA NELSON Attending Clinician Unavailab Karla Ramirez DO Attending Clinician [phone] KATE BROWNE Attending Clinician Unavailable Kate Negro Attending Clinician [phone] Dania Trimble RN Attending Clinician Unavailab kale Doctor Unassigned, [place] Attending Clinician U JAKUB Jaramillo Admitting Clinician Unavailable Hood PRINCE Admitting Clinician Unavailable SHAQUILLE BELLO Admitting Clinician Unavailable YESENIA VARMA Admitting Clinician Unavailab KATE Marie Admitting Clinician Unavailable Payers Payer Name Policy Type Policy Number Effective Date Expirati on Date Source [employer] [id number] 00:00:00 COMMERCIAL NON-CONTRACT GENERIC [id number] MULTIPLAN GENERIC [id number] 2022 00:00:00 MEDI-SHARE [id number] [facility] MEDICAID [id number] 2015 00:00:00 Problems Condition Name Condition Details Condition Category Status Onset Date Resolution Date Last Treatment Date Treating Clinician Comments Source Paranoid schizophre cece Paranoid schizophre cece Disease Active 05-27 00:00: 00 Overview: Formattin g of this note might be different from the original. ICD10 Diagnosis Term Kier Pleater Utility [facility] Allergies, Adverse Reactions, Alerts Allergy Name Allergy Type Status Severity Reaction(s) Onset Date Inactive Date Treating Clinician Comments Source NO KNOWN ALLERGIE S Drug Class Active [facility] Social History Social Habit Start Date Stop Date Quantity Comments Source Gender identity [facility] 2023-05-08 00:00:00 2023-05-08 00:00:00 Current drinker of alcohol (finding) [facility] History of Social function 2023-05-08 00:00:00 2023-05-08 00:00:00 [facility] Exposure to SARS-CoV-2 (event) 2023-01-25 00:00:00 2023-02-04 10:20:00 Not sure [facility] Tobacco use and exposure 2022-12-17 00:00:00 2022-12-17 00:00:00 Smokeless tobacco non-user [facility] Alcohol Comment 2022-12-17 00:00:00 2022-12-17 00:00:00 weekends only [facility] Sex Assigned At 1985 00:00:00 1985 00:00:00 [facility] Smoking Status Start Date Stop Date Source Tobacco smoking consumption unknown [facility] Never smoked tobacco [facility] Medications Ordered Medication Name Filled Medication Name Start Date Stop Date Current Medication? Ordering Clinician Indication Dosage Frequency Signature (SIG) Comments Components Source ibuprofen 600 mg tablet 04-13 00:00: 00 Yes [id number] 600mg Take 1 tablet by mouth every 6 (six) hours as needed for Pain (scale 4-6). [facility] ibuprofen (IBU) tablet 600 mg 02-04 15:45: 00 02-04 15:38 :00 No 600mg 600 mg, Oral, ONCE, 1 dose, On 02/04/23 at 1045, JOSE ELIAS [facility] ibuprofen 600 mg tablet 02-04 00:00: 00 Yes [id number] 600mg Take 1 tablet by mouth every 6 (six) hours as needed for Pain (scale 4-6). [facility] benzonatate 100 mg capsule 12-17 00:00: 00 Yes [id number] 100mg Take 1 capsule by mouth 3 (three) times daily as needed for Cough. [facility] albuterol 90 mcg/actuati on inhaler 12-17 00:00: 00 Yes [id number] 2{puff} Inhale 2 Puffs every 4 (four) hours as needed for Wheezing or Shortness of Breath. [facility] benzonatate 100 mg capsule 06-04 00:00: 00 12-17 00:00 :00 No [id number] 100mg Take 1 capsule by mouth 3 (three) times daily as needed for Cough. [facility] predniSONE 20 mg tablet 06-04 00:00: 00 06-10 04:59 :00 No [id number] 20mg Take 1 tablet by mouth in the morning for 5 days. [facility] ondansetron (ZOFRAN (PF)) injection 4 mg 05-01 21:45: 00 05-01 21:04 :00 No 4mg 4 mg, Slow IV Push, ONCE, 1 dose, On Sun05/01/22 at 1645, JOSE ELIAS [facility] NaCl 0.9% (NS) bolus infusion 1,000 mL 05-01 21:45: 00 05-01 22:13 :00 No 1000mL at 999 mL/hr, 1,000 mL, IV Infusion, ONCE, 1 dose, On Sun05/01/22 at 1645, [facility] ondansetron (ZOFRAN) 4 mg tablet 8-15 00:00: 00 06-04 00:00 :00 No [id number] 4mg Take 1 tablet by mouth every 8 (eight) hours as needed for Nausea and Vomiting (N/V) for up to 15 doses. [facility] TAKE 1 TABLET BY MOUTH ONCE DAILY FOR 5 DAYS 03-31 00:00: 00 No 20 DISSOLVE 1 TABLET IN MOUTH EVERY 8 HOURS NEEDED 03-31 00:00: 00 No 4 TAKE 1 TABLET BY MOUTH EVERY 8 HOURS FOR 10 DAYS 03-31 00:00: 00 No 500 TAKE 1 TABLET BY MOUTH EVERY 12 HOURS FOR 10 DAYS 03-31 00:00: 00 No ibuprofen (IBU) tablet 600 mg 02-15 00:15: 00 02-14 23:18 :00 No 600mg 600 mg, Oral, ONCE, 1 dose, On Sun02/14/22 at 1915, [facility] ibuprofen 600 mg tablet 02-14 00:00: 00 02-04 00:00 :00 No [id number] 600mg Take 1 tablet by mouth every 6 (six) hours as needed for Pain (scale 4-6). [facility] methocarbam oL 500 mg tablet 02-14 00:00: 00 06-04 00:00 :00 No [id number] 500mg Take 1 tablet by mouth 4 (four) times daily. [facility] metronidazo le 500 mg tablet 11-10 00:00: 00 No 1mg metronidazo le 500 mg tablet 11-04 00:00: 00 No 1mg ondansetron 4 mg disintegrat ing tablet 2017-09 00:00: 00 06-04 00:00 :00 No 4mg Take 1 tablet by mouth every 8 (eight) hours as needed for Nausea and Vomiting (N/V). [facility] QUETIAPINE 25 MG ORAL TAB 9-10 00:00: 00 12-17 00:00 :00 No 2 Tab Oral QHSPRN [facility] RISPERIDONE 2 MG ORAL TAB 2006-0 9-10 00:00: 00 12-17 00:00 :00 No 1 Tab Oral QAM [facility] Vital Signs Vital Name Observation Time Observation Value Comments S mehran Systolic blood pressure 2023-05-09 00:10:00 149 mm[Hg] [facility] Diastolic blood pressure 2023-05-09 00:10:00 92 mm[Hg] [facility] Heart rate 2023-05-09 00:10:00 76 /min Unive [facility] Body temperature 2023-05-09 00:10:00 37.5 Tammy [facility] Respiratory rate 2023-05-09 00:10:00 16 /min [facility] Body height 2023-05-09 00:10:00 160 cm [facility] Body weight 2023-05-09 00:10:00 60.782 kg [facility] BMI 2023-05-09 00:10:00 23.74 kg/m2 [facility] Oxygen saturation in Arterial blood by Pulse oximetry 2023-05-09 00:10:00 100 /min [facility] Systolic blood pressure 2023-04-13 16:42:00 144 mm[Hg] [facility] Diastolic blood pressure 2023-04-13 16:42:00 99 mm[Hg] [facility] Heart rate 2023-04-13 16:42:00 65 /min Unive [facility] Body temperature 2023-04-13 16:42:00 36.89 Tammy [facility] Respiratory rate 2023-04-13 16:42:00 14 /min [facility] Body height 2023-04-13 16:42:00 165.1 cm [facility] Body weight 2023-04-13 16:42:00 68.04 kg [facility] BMI 2023-04-13 16:42:00 24.96 kg/m2 [facility] Oxygen saturation in Arterial blood by Pulse oximetry 2023-04-13 16:42:00 100 /min [facility] Systolic blood pressure 2023-02-04 16:00:00 136 mm[Hg] [facility] Diastolic blood pressure 2023-02-04 16:00:00 98 mm[Hg] [facility] Heart rate 2023-02-04 16:00:00 57 /min Un[facility] Body temperature 2023-02-04 15:09:00 37.22 Tammy [facility] Respiratory rate 2023-02-04 15:09:00 22 /min [facility] Body height 2023-02-04 15:09:00 165.1 cm [facility] Body weight 2023-02-04 15:09:00 63.504 kg [facility] BMI 2023-02-04 15:09:00 23.30 kg/m2 [facility] Oxygen saturation in Arterial blood by Pulse oximetry 2023-02-04 15:09:00 100 /min [facility] Systolic blood pressure 2022-12-17 21:22:00 127 mm[Hg] [facility] Diastolic blood pressure 2022-12-17 21:22:00 97 mm[Hg] [facility] Heart rate 2022-12-17 21:22:00 92 /min Un[facility] Body temperature 2022-12-17 21:22:00 37.72 Tammy [facility] Respiratory rate 2022-12-17 21:22:00 16 /min [facility] Body height 2022-12-17 21:22:00 154.9 cm [facility] Body weight 2022-12-17 21:22:00 63.504 kg [facility] BMI 2022-12-17 21:22:00 26.45 kg/m2 [facility] Oxygen saturation in Arterial blood by Pulse oximetry 2022-12-17 21:22:00 100 /min [facility] Systolic blood pressure 2022-06-25 17:19:00 146 mm[Hg] [facility] Diastolic blood pressure 2022-06-25 17:19:00 87 mm[Hg] [facility] Heart rate 2022-06-25 17:19:00 85 /min Unive [facility] Body temperature 2022-06-25 17:19:00 36.28 Tammy [facility] Respiratory rate 2022-06-25 17:19:00 20 /min [facility] Body height 2022-06-25 17:19:00 170.2 cm [facility] Body weight 2022-06-25 17:19:00 58.968 kg [facility] BMI 2022-06-25 17:19:00 20.36 kg/m2 [facility] Oxygen saturation in Arterial blood by Pulse oximetry 2022-06-25 17:19:00 99 /min [facility] Systolic blood pressure 2022-06-04 16:04:00 126 mm[Hg] [facility] Diastolic blood pressure 2022-06-04 16:04:00 92 mm[Hg] [facility] Heart rate 2022-06-04 16:04:00 72 /min Unive [facility] Body temperature 2022-06-04 16:04:00 36.67 Tammy [facility] Respiratory rate 2022-06-04 16:04:00 19 /min [facility] Body height 2022-06-04 16:04:00 162.6 cm [facility] Body weight 2022-06-04 16:04:00 58.968 kg [facility] BMI 2022-06-04 16:04:00 22.31 kg/m2 [facility] Oxygen saturation in Arterial blood by Pulse oximetry 2022-06-04 16:04:00 98 /min [facility] Systolic blood pressure 2022-05-01 22:12:00 104 mm[Hg] [facility] Diastolic blood pressure 2022-05-01 22:12:00 69 mm[Hg] [facility] Heart rate 2022-05-01 22:12:00 71 /min Unive [facility] Respiratory rate 2022-05-01 22:12:00 14 /min [facility] Oxygen saturation in Arterial blood by Pulse oximetry 2022-05-01 22:12:00 100 /min [facility] Body temperature 2022-05-01 20:31:00 36.17 Tammy [facility] Body weight 2022-05-01 20:31:00 58.968 kg [facility] BMI 2022-05-01 20:31:00 21.63 kg/m2 [facility] Systolic blood pressure 2022-02-14 22:26:00 142 mm[Hg] [facility] Diastolic blood pressure 2022-02-14 22:26:00 89 mm[Hg] [facility] Heart rate 2022-02-14 22:26:00 68 /min [facility] Body temperature 2022-02-14 22:26:00 37.56 Tammy [facility] Respiratory rate 2022-02-14 22:26:00 17 /min [facility] Body height 2022-02-14 22:26:00 165.1 cm [facility] Body weight 2022-02-14 22:26:00 63.504 kg [facility] BMI 2022-02-14 22:26:00 23.30 kg/m2 [facility] Oxygen saturation in Arterial blood by Pulse oximetry 2022-02-14 22:26:00 100 /min [facility] BP Systolic 2022-03-31 16:54:00 117 mm[Hg] BP [...] Procedures Procedure Date / Time Performed Performing Clinicia n Source ASSIGNMENT OF BENEFITS 2023-05-09 01:22:38 Doczack r Unassigned, [place] [facility] NOTICE OF PRIVACY PRACTICES 2023-05-09 00:08:06 Doctor Unassigned, [place] [facility] CONSENT/REFUSAL FOR DIAGNOSIS AND TREATMENT 2023-05-09 00:06:28 Doctor Unassigned, [place] [facility] XR SHOULDER 2+ VW LEFT 2023-04-13 18:05:05 Hood Prince [facility] CONSENT/REFUSAL FOR DIAGNOSIS AND TREATMENT 2023-04-13 16:08:19 Doctor Unassigned, [place] [facility] XR HAND <3 VW RIGHT 2023-02-04 16:02:00 Shaquille Bello [facility] ASSIGNMENT OF BENEFITS 2023-02-04 15:53:20 Docto r Unassigned, [place] [facility] CONSENT/REFUSAL FOR DIAGNOSIS AND TREATMENT 2023-02-04 15:02:12 Doctor Unassigned, [place] [facility] XR CHEST 2 VW 2022-12-17 22:34:33 [facility] 2022-12-17 21:26:00 Rolando Varma [facility] COVID-19 (ID NOW RAPID TESTING) 2022-12-17 21:26:00 Yesenia Varma [facility] CONSENT/REFUSAL FOR DIAGNOSIS AND TREATMENT 2022-12-17 21:13:30 Doctor Unassigned, [place] [facility] CONSENT/REFUSAL FOR DIAGNOSIS AND TREATMENT 2022-06-25 17:12:35 Doctor Unassigned, [place] [facility] COVID-19 (ID NOW RAPID TESTING) 2022-06-04 16:38:00 Shaquille Bello [facility] CONSENT/REFUSAL FOR DIAGNOSIS AND TREATMENT 2022-06-04 15:47:54 Doctor Unassigned, [place] [facility] CT HEAD WO CONTRAST 2022-05-01 21:27:54 Kate Borwne [facility] XR CHEST 2 VW 2022-05-01 21:17:46 Kate Browne [facility] POCT TEST 2022-05-01 21:07:00 Kate Browne [facility] LIPASE 2022-05-01 21:01:00 Kate Browne [facility] TROPONIN I 2022-05-01 21:01:00 Kate Browne [facility] COMP. METABOLIC PANEL (78201) 2022-05-01 21:01:00 Kate Browne [facility] CBC WITH DIFF 2022-05-01 21:01:00 Kate Browne [facility] URINALYSIS 2022-05-01 21:01:00 Kate Browne [facility] HB ECG ROUTINE & RHYTHM STRIP 2022-05-01 20:48:28 Kate Browne [facility] CONSENT/REFUSAL FOR DIAGNOSIS AND TREATMENT 2022-05-01 20:19:16 Doctor Unassigned, [place] [facility] CT CERVICAL SPINE WO CONTRAST 2022-02-15 00:00:41 Hood Prince [facility] CT LUMBAR SPINE WO CONTRAST 2022-02-15 00:00:41 Hood Prince [facility] CT THORACIC SPINE WO CONTRAST 2022-02-15 00:00:41 Hood Prince [facility] POCT TEST 2022-02-14 23:03:00 Hood Prince [facility] NOTICE OF PRIVACY PRACTICES 2022-02-14 22:22:55 Doctor Unassigned, [place] [facility] CONSENT/REFUSAL FOR DIAGNOSIS AND TREATMENT 2022-02-14 22:18:40 Doctor Unassigned, [place] [facility] [id number] Colposcopy Cervix Bx Cervix endocrv [facility] 2019-12-16 00:00:00 Plan of Care Planned Activity Planned Date Details Comments Source Goal Plan of Care Note [code = 18731-2] Goal Plan of Care Note [code = 65196-0] Goal Plan of Care Note [code = 44246-9] Goal Plan of Care Note [code = 24322-7] Goal Plan of Care Note [code = 96204-6] Goal Plan of Care Note [code = 95248-9] Goal Plan of Care Note [code = 56584-3] Goal Plan of Care Note [code = 90486-3] Goal Plan of Care Note [code = 80097-5] Goal Plan of Care Note [code = 57031-3] Encounters Start Date/Time End Date/Time Encounter Type Admission Type Attending [facility] Care Department Encounter ID Source 2023-05-08 19:13:00 2023-05-08 21:04:00 Emergency X JAKUB POLO [facility] ERT [id number] [facility] 2023-05-08 19:13:00 2023-05-08 21:04:00 Emergency Jakub Polo [facility] 1.2.840.114 350.1.13.10 4.2.7.2.686 [id number] [facility] 2023-04-13 11:43:00 2023-04-13 14:18:00 Emergency X Hood PRINCE [facility] ERT [id number] [facility] 2023-04-13 11:43:00 2023-04-13 14:18:00 Emergency Hood Prince [facility] 1.2.840.114 350.1.13.10 4.2.7.2.686 [id number] [facility] 2023-02-16 08:17:37 2023-02-16 08:17:37 Outpatient [facility] [id number] Will Thorpe 2023-02-10 10:15:59 2023-02-10 10:15:59 Outpatient [facility] [id number] Will Thorpe 2023-02-08 10:30:21 2023-02-08 10:30:21 Outpatient [facility] [id number] Will Thorpe 2023-02-04 10:11:00 2023-02-04 11:21:00 Emergency X PHILMICHELLE LEWISALA [facility] ERT [id number] [facility] 2023-02-04 10:11:00 2023-02-04 11:21:00 Emergency Shaquille Bello Sohan [facility] 1.2.840.114 350.1.13.10 4.2.7.2.686 [id number] [facility] 2023-01-19 08:05:39 2023-01-19 08:05:39 Outpatient [facility] [id number] Will Thorpe 2022-12-17 16:28:00 2022-12-17 19:29:00 Emergency X NELIDAKEN DENSONDA [facility] ERT [id number] [facility] 2022-12-17 16:28:00 2022-12-17 19:29:00 Emergency Yesenia Varma [facility] 1.2.840.114 350.1.13.10 4.2.7.2.686 [id number] [facility] 2022-06-25 12:24:00 2022-06-25 13:04:00 Emergency X KARLA NELSON [facility] ERT [id number] [facility] 2022-06-25 12:24:00 2022-06-25 13:04:00 Emergency Karla Nelson [facility] 1.2.840.114 350.1.13.10 4.2.7.2.686 [id number] [facility] 2022-06-04 11:05:00 2022-06-04 12:37:00 Emergency Shaquille Bello [facility] 1.2.840.114 350.1.13.10 4.2.7.2.686 [id number] [facility] 2022-06-04 11:05:00 2022-06-04 12:37:00 Emergency X SHAQUILLE BELLO [facility] ERT [id number] [facility] 2022-05-01 15:33:00 2022-05-01 17:19:00 Emergency X KATE BORWNE [facility] ERT [id number] [facility] 2022-05-01 15:33:00 2022-05-01 17:19:00 Emergency Kate Browne [facility] 1.2840.114 350.1.13.10 4.2.7.2.686 [id number] [facility] 2022-03-31 00:00:00 2022-03-31 00:00:00 Outpatient Visit [id number] 2022-02-14 17:28:00 2022-02-14 19:30:00 Emergency Hood Prince [facility] 1.2840.114 350.1.13.10 4.2.7.2.686 [id number] [facility] 2022-02-14 17:28:00 2022-02-14 19:30:00 Emergency X Hood PRINCE [facility] ERT [id number] [facility] 2020-04-30 00:00:00 2020-04-30 00:00:00 Letter (Out) Dania Trimble [facility] 1.2840.114 350.1.13.10 4.2.7.2.686 [id number] 2020-04-27 14:41:00 2020-04-27 16:53:00 Emergency Karla Nelson [facility] 1..840.114 350.1.13.10 4.2.7.2.686 [id number] 2020-04-27 14:32:00 2020-04-27 14:32:00 Emergency X [facility] ERT [id number] [facility] 2020-04-27 00:00:00 2020-04-27 00:00:00 Orders Only Doctor Unassigned, [place] [facility] 1..840.114 350.1.13.10 4.2.7.2.686 [id number] Results Test Description Test Time Test Comments Results Result Co mments Source RPR REFLEX TO T. PALLIDUM - [id number] 05:06:21* Test Item Value Reference Range Interpretation Comme nts RPR (test code = 72876) REACTIVE NON-REACTIVE A SCREENING RPR RE ACTIVE. SEE BELOW FOR REFLEX TP-PA RPR TITER (test code = 3500) 1:[address] H CT/NG, NAAT, [id number] 15:28:01* Test Item Value Reference Range Interpretation Comme nts CHLAMYDIA, NAAT, URINE (test code = 56953) POSITIVE NEGATIVE A Testing is perfo rmed with Debra ARIC 6800/8800 systems usingreal-time polymerase chain reaction (PCR) method. GONORRHEA, NAAT, URINE (test code = 63405) NEGATIVE NEGATIVE Testing is perfo rmed with Debra ARIC 6800/8800 systems usingreal-time polymerase chain reaction (PCR) method. A negative result does not exclude low level infection, specimensampling error, or collection error. UNLESS OTHERWISE INDICATED, ALL TESTING PERFORMED AT [facility] [address] [place] [address] TREE SPECIALIST: MARCELLO MAURICE M.D. CLIA NUMBER [id number] [place]. [id number] HIV 1/2 4TH GEN, RFLX [id number] 05:41:53* Test Item Value Reference Range Interpretation Comme nts HIV 1/2 4TH GEN, RFLX CONF ( test code = 3514) NON-REACTIVE NON-REACTIVE [id number] 05:24:08* Test Item Value Reference Range Interpretation Comme nts RPR RESULT (test code = 3501) REACTIVE NON-REACTIVE A RPR TITER (test code = 3500) 1:16 TITER NOT INDIC. H T. PALLIDUM - [id number] 15:22:11* Test Item Value Reference Range Interpretation Comme nts T. PALLIDUM - PA (test code = 08553) REACTIVE NON-REACTIVE A UNLESS OTHER CHEN INDICATED, ALL TESTING PERFORMED AT [facility] [address] [place] [address] TREE SPECIALIST: MARCELLO MAURICE M.D. [place] NUMBER [id number] [place]. [id number] CULTURE, [id number] 10:01:06SPECIMEN NUMBER: [id number] CULTURE, URINE SPECIMEN NUMBER: [id number] SPECIMEN COMMENT: URINE SOURCE: URINE REPORT STATUS: FINAL ISOLATE NUMBER 1: ORGANISM: 01/21/2023 >100,000 CFU/ML GRAM NEGATIVE BACILLI IDENTIFICATION: 01/23/2023 ESCHERICHIA SPECIES ESCHERICHIA SP. AMOXICILLIN/CA SENSITIVE <=8/4AMPICILLIN SENSITIVE <=8CEFAZOLIN SENSITIVE <=2CEFTRIAXONE SENSITIVE <=1CIPROFLOXACIN SENSITIVE <=1LEVOFLOXACIN SENSITIVE <=2NITROFURANTOIN SENSITIVE <=32PIP/TAZOBAC SENSITIVE <=16TETRACYCLINE SENSITIVE <=4TOBRAMYCIN SENSITIVE <=4TRIMETH/SULFA SENSITIVE <=2/38 NOTE: NUMBERS DISPLAYED REPRESENT MINIMUM INHIBITORY CONCENTRATION (BRIANNE) WHICH IS EXPRESSED IN MCG/ML.CT/NG, NAAT, [id number] 14:00:43* Test Item Value Reference Range Interpretation Comme nts CHLAMYDIA, NAAT, URINE (test code = 92110) NEGATIVE NEGATIVE Assay methodolog y is nucleic acid amplification by transcriptionmediated amplification (TMA) utilizing the Aptima Combo 2 Assay. A negative result does not exclude low level infection, specimensampling error, or collection error. GONORRHEA, NAAT, URINE (test code = 17976) NEGATIVE NEGATIVE Assay methodolog y is nucleic acid amplification by transcriptionmediated amplification (TMA) utilizing the Aptima Combo 2 Assay. A negative result does not exclude low level infection, specimensampling error, or collection error. RPR REFLEX TO T. PALLIDUM - [id number] 06:16:29* Test Item Value Reference Range Interpretation Comme nts RPR (test code = 12831) REACTIVE NON-REACTIVE A SCREENING RPR RE ACTIVE. SEE BELOW FOR REFLEX TP-PA RPR TITER (test code = 3500) 1:16 TITER NOT INDIC. H HIV 1/2 4TH GEN, RFLX [id number] 03:55:25* Test Item Value Reference Range Interpretation Comme nts HIV 1/2 4TH GEN, RFLX CONF ( test code = 3514) NON-REACTIVE NON-REACTIVE TROPONIN [id number] 21:36:51* Test Item Value Reference Range Interpretation Comments TROPONIN I (test code = 7762433635) 0.002 ng/mL See_Comment [Automated message] The system which generated this result transmitted reference range: <=0.034. The reference range was not used to interpret this result as normal/abnormal. ROHIT (test code = ROHIT) Reference (Normal) Range (defined by the 99th percentile reference [...] to patient's use of biotin. Lab Interpretation (test code = 59999-0) [facility] (71340)2022-[facility]-01 21:25:29* Test Item Value Reference Range Interpretation Comme nts NA (test code = 7710339219) 137 mmol/L 135-145 K (test code = 8717796079) 4.0 mmol/L 3.5-5 CL (test code = 7263504106) 106 mmol/L 98-108 CO2 TOTAL (test code = 4823706615) 25 mmol/L 23-31 AGAP (test code = 1111667918) 2-16 BUN (test code = 9699709753) 10 mg/dL 7-23 GLUCOSE (test code = 1981108834) 135 mg/dL 70-110 H CREATININE (test code = 9484248437) 0.58 mg/dL 0.5-1.04 TOTAL BILI (test code = 8177994935) 0.6 mg/dL 0.1-1.1 CALCIUM (test code = 4794791126) 8.4 mg/dL 8.6-10.6 L T PROTEIN (test code = 9363015970) 6.2 g/dL 6.3-8.2 L ALBUMIN (test code = 5368096472) 4.1 g/dL 3.5-5 ALK PHOS (test code = 4512283379) 60 U/L 34-122 ALTv (test code = 1742-6) 17 U/L 5-35 AST(SGOT) (test code = 9366792667) 20 U/L 13-40 eGFR (test code = 2870275584) mL/min/1.73m2 ROHIT (test code = ROHIT) Association of [...] or abnormalities in imaging tests). Lab Interpretation (test code = 72494-8) [facility]25[facility]* Test Item Value Reference Range Interpretation Comme nts LIPASE (test code = 1666939601) 45 U/L 0-220 Lab Interpretation (test cod e = 68938-4) [facility] [id number] 21:13:09* Test Item Value Reference Range Interpretation Comme nts WBC (test code = 6690-2) See_Comment H [Automated message] The system which generated this result transmitted reference range: 4.30 - 11.10 10*3/?L. The reference range was not used to interpret this result as normal/abnormal. RBC (test code = 789-8) See_Comment [Automated message] The system which generated this result transmitted reference range: 3.93 - 5.25 10*6/?L. The reference range was not used to interpret this result as normal/abnormal. HGB (test code = 718-7) 15.5 g/dL 11.6-15 H HCT (test code = 4544-3) 46.6 % 35.7-45.2 H MCV (test code = 787-2) 94.0 fL 80.6-95.5 MCH (test code = 785-6) 31.3 pg 25.9-32.8 MCHC (test code = 786-4) 33.3 g/dL 31.6-35.1 RDW-SD (test code = 60639-9) 46.0 fL 39-49.9 RDW-CV (test code = 788-0) 13.4 % 12-15.5 PLT (test code = 777-3) See_Comment [Automated message] The system which generated this result transmitted reference range: 166 - 358 10*3/?L. The reference range was not used to interpret this result as normal/abnormal. MPV (test code = 37751-3) 11.2 fL 9.5-12.9 NRBC/100 WBC (test code = 1493730282) See_Comment [Automated message] The system which generated this result transmitted reference range: 0.0 - 10.0 /100 WBCs. The reference range was not used to interpret this result as normal/abnormal. NRBC x10^3 (test code = 2114173506) See_Comment [Automated message] The system which generated this result transmitted reference range: 10*3/?L. The reference range was not used to interpret this result as normal/abnormal. GRAN MAT (NEUT) % (test code = 770-8) 87.8 % IMM GRAN % (test code = 2732926466) 0.60 % LYMPH % (test code = 736-9) 6.9 % MONO % (test code = 5905-5) 3.5 % EOS % (test code = 713-8) 0.9 % BASO % (test code = 706-2) 0.3 % GRAN MAT x10^3(ANC) (test code = 9674977593) 12.21 10*3/uL 1.88-7.09 H IMM GRAN x10^3 (test code = 4463011017) 0.09 10*3/uL 0-0.06 H LYMPH x10^3 (test code = 731-0) 0.96 10*3/uL 1.32-3.29 L MONO x10^3 (test code = 742-7) 0.49 10*3/uL 0.33-0.92 EOS x10^3 (test code = 711-2) 0.13 10*3/uL 0.03-0.39 BASO x10^3 (test code = 704-7) 0.04 10*3/uL 0.01-0.07 Lab Interpretation (test code = 46531-5) [facility]normal [facility] [id number] 21:07:00* Test Item Value Reference Range Interpretation Comme nts POCT PREG (test code = 1605) negative On board controls acceptable with C Line (test code = 3574) present POCT PREG LOT # (test code = 3575) [id number] POCT PREG TEST DATE ( test code = 3576) 07/17/2023 Lab Interpretation (test cod e = 99354-5) Normal [facility], NAAT, [id number] 17:52:27* Test Item Value Reference Range Interpretation Comme nts GONORRHEA, NAAT (test code = 74709) NEGATIVE NEGATIVE IMPORTANT NO TIERRA: SEE ANNOUNCEMENT AT [email or web address] Note: Assay methodology is nucleic acid amplification by medical communication specialist mediated amplification (TMA) utilizing the Aptima Combo 2 Assay. CHLAMYDIA, NAAT (test code = 48444) NEGATIVE NEGATIVE IMPORTANT NO TIERRA: SEE ANNOUNCEMENT AT [email or web address] Note: Assay methodology is nucleic acid amplification by medical communication specialist mediated amplification (TMA) utilizing the Aptima Combo 2 Assay. UNLESS OTHERWISE INDICATED, ALL TESTING PERFORMED [facility] [place], [facility]. [address] [place] [address] TREE SPECIALIST: DORI GRACE M.D. CLIA NUMBER [id number] [place]. [id number] CT/NG, NAAT, [id number] 09:03:35* Test Item Value Reference Range Interpretation Comme nts GONORRHEA, NAAT (test code = 25762) TEST NOT PERFORMED NEGATIVE Unable to per form testing, specimen not received.Charges adjusted as applicable. CHLAMYDIA, NAAT (test code = 88365) TEST NOT PERFORMED NEGATIVE Unable to per form testing, specimen not received.Charges adjusted as applicable. UNLESS OTHERWISE INDICATED, ALL TESTING PERFORMED [facility] [place], [facility]. [address] [place] [address] TREE SPECIALIST: DORI GRACE M.D. CLIA NUMBER [id number] [place]. [id number] PAP TEST, THINPREP, [id number] 12:15:39* Test Item Value Reference Range Interpretation Comme nts SOURCE: (test code = 8001) Cervical/End ocervical SLIDES: (test code = 8011) 1 LMP: (test code = 8021) SPECIMEN ADEQUACY: (test code = 92298) (NOTE) Satisfactory for evaluation. Endocervical cells/transformation zone component present. INTERPRETATION: (test code = 19706) NILM/NO EPITH. ABNORMALITY; SEE BELOW -- ---- NEGATIVE FOR INTRAEPITHELIAL LESION OR MALIGNANCY Reactive cellular changes present (NILM). OTHER COMMENTS: (test code = 8081) (NOTE) Shift in grisel suggestive of bacterial vaginosis. This patient's abnormal pap history is reviewed. ELECTRICAL TESTER: (test code = 8101) [facility])CT([facility]) PATHOLOGIST INTERPRETATION BY: (test code = 8122) Isaías Wilson M.D. LOCATION: (test code = 28404) (NOTE) Specimens proces sed at [facility], [address] [place] [id number], , CLIA: [id number] interpreted at [facility], [address] [place] [address],Pathology Department Lower Level, [facility] [place] [address], , CLIA: [id number] CPT: (test code = 8140) (NOTE) 84796, [address]39[address] UNL ESS OTHERWISE INDICATED, COMPUTER AIDED AND ELECTRICAL TESTER SCREENING PERFORMED. The Pap test is a screening test with an inherent, but low probability of error. Your patient should be reminded to consult you immediately if she experiences any suspicious signs or symptoms, regardless of her Pap test result. An alternate report format containing images or consolidated prior Pap history is available as applicable. VAGINAL PATHOGENS DNA [id number] 15:55:07* Test Item Value Reference Range Interpretation Comme nts MALISSA SPECIES (test code = 65799) NEGATIVE NEGATIVE G. VAGINALIS (test code = 83909) POSITIVE NEGATIVE A T. VAGINALIS (test code = 16118) NEGATIVE NEGATIVE HPV HIGH RISK WITH GENOTYPE, [id number] 13:46:44* Test Item Value Reference Range Interpretation Comme [facility] HPV HIGH RISK INTERP (test code = 07658) NEGATIVE NEGATIVE HPV 16 (test code = 23559) NEGATIVE HPV 18 (test code = 46140) NEGATIVE HPV, HR, OTHER GENOTYPES (test code = 11067) NEGATIVE Testing methodol ogy is real-time PCR utilizing hydrolysis probes with the Debra Aric 4800 system. The test individually detects genotypes 16 and 18, as well as the other 12 high risk types (31,33,35,39,45,51,52,56 ,58,59,66,68). The expected result is negative. A negative result does not rule out the presence of HPV not included in the genotype set, a low level of infection or specimen sampling error. UNLESS OTHERWISE INDICATED, ALL TESTING PERFORMED [facility] [place], [facility]. [address] [place] [address] TREE SPECIALIST: DORI GRACE M.D. CLIA NUMBER [id number] [facility] [place]. [id number] HIV 1/2 4TH GEN, RFLX [id number] 04:48:51* Test Item Value Reference Range Interpretation Comme [facility] HIV 1/2 4TH GEN, RFLX CONF ( test code = 3514) NON-REACTIVE NON-REACTIVE HEPATITIS PANEL, [id number] 04:48:51* Test Item Value Reference Range [facility]ation [facility] A IgM (test code = 07249) NON-REACTIVE NON-REACTIVE HEPATITIS B CORE IgM (test code = 4644) NON-REACTIVE NON-REACTIVE HEPATITIS B SURF AG (test code = 2739) NON-REACTIVE NON-REACTIVE HEPATITIS C ANTIBODY (test code = 4675) NON-REACTIVE NON-REACTIVE INTERPRETATION HEPATITIS A: (test code = 2552) (NOTE) Hepatitis A serology shows no evidence of acute hepatitis A. INTERPRETATION HEPATITIS B: (test code = 22316) (NOTE) Hepatitis B serology shows no evidence of acute hepatitis B andno indication of exposure to hepatitis B virus in the previous ladan eight months. INTERPRETATION HEPATITIS C: (test code = 70360) (NOTE) Hepatitis C serology shows no evidence of exposure to hepatitisC virus at this time. It can take up to 12 months after exposure tothe hepatitis C virus for antibodies to become detectable in the blood in certain patients. [id number] 00:36:41* Test Item Value Reference Range Interpretation Comme nts RPR RESULT (test code = 3501) REACTIVE NON-REACTIVE A RPR TITER (test code = 3500) 1:64 TITER NOT INDIC. H POCT [id number] 23:03:00* Test Item Value Reference Range Interpretation Comme nts POCT PREG (test code = 1605) Negative On board controls acceptable with C Line (test code = 3574) Present POCT PREG LOT # (test code = 3575) [id number] POCT PREG TEST DATE ( test code = 3576) 07/17/2023 Lab Interpretation (test cod e = 84464-9) Normal [facility] [id number] 00:00:00* Test Item Value Reference Range Interpretation Comme nts DIAGNOSIS: (test code = 8200) (NOTE) COMMENTS: (test code = 8205) (NOTE) MICROSCOPIC DESCRIPTION: (te st code = 8210) (NOTE) CLINICAL DATA: (test code = 8401) (NOTE) GROSS DESCRIPTION: (test code = 8220) (NOTE) PATHOLOGIST: (test code = 8250) (NOTE) DISCLAIMER (test code = 05698) (NOTE) CPT: (test code = 8400) (NOTE) PAP TEST, THINPREP, [id number] 00:00:00* Test Item Value Reference Range Interpretation Comme nts SOURCE: (test code = 8001) Cervical/Vagi nal/E ndocervical SLIDES: (test code = 8011) 1 LMP: (test code = 8021) 10/16/2019 SPECIMEN ADEQUACY: (test code = 30552) (NOTE) INTERPRETATION: (test code = 77615) ASC H/EPITH. ABNORMALITY; SEE BELOW OTHER COMMENTS: (test code = 8081) (NOTE) ELECTRICAL TESTER: (test code = 8101) SHANELL LONG(ASCP)IA C PATHOLOGIST INTERPRETATION BY: (test code = 8122) Ailyn Dietrich M.D. LOCATION: (test code = 76953) (NOTE) CPT: (test code = 8140) (NOTE) VAGINAL PATHOGENS DNA [id number] 00:00:00* Test Item Value Reference Range Interpretation Comme nts MALISSA SPECIES (test code = 20279) NEGATIVE G. VAGINALIS (test code = 38693) POSITIVE T. VAGINALIS (test code = 42576) NEGATIVE GC AND CHLAMYDIA AMPLIFIED, [id number] 00:00:00* Test Item Value Reference Range Interpretation Comme nts GONORRHEA, TMA (test code = 67125) NEGATIVE CHLAMYDIA, TMA (test code = 50816) NEGATIVE HIV AB/AG COMBO RFLX [id number] 00:00:00* Test Item Value Reference Range Interpretation Comme nts HIV 1/2 4TH GEN, RFLX CONF ( test code = 3514) NON-REACTIVE [id number] 00:00:00* Test Item Value Reference Range Interpretation Comme nts RPR RESULT (test code = 3501) NON-REACTIVE RPR TITER (test code = 3500) NOT INDIC. TITER HPV HIGH RISK WITH GENOTYPE, [id number] 00:00:00* Test Item Value Reference Range Interpretation Comme nts HPV HIGH RISK INTERP (test c ode = 36076) POSITIVE HPV 16 (test code = 85805) NEGATIVE HPV 18 (test code = 15896) POSITIVE HPV, HR, OTHER GENOTYPES (te st code = 34721) NEGATIVE HEPATITIS PROFILE (A,B,C)2019-10-31 00:00:00* Test Item Value Reference Range Interpretation Comme nts HEPATITIS A TOTAL AB (test c ode = 2725) NON-REACTIVE HEPATITIS B SURF AG (test co de = 2739) NON-REACTIVE HEP B CORE TOTAL AB (test co de = 2729) NON-REACTIVE HEPATITIS B SURFACE AB (test code = 2737) NON-REACTIVE HEPATITIS C ANTIBODY (test c ode = 4675) NON-REACTIVE INTERPRETATION HEPATITIS A: (test code = 2552) (NOTE) INTERPRETATION HEPATITIS B: (test code = 75586) (NOTE) INTERPRETATION HEPATITIS C: (test code = 30844) (NOTE) Notes Date/Time Note Provider Source 2023-05-08 20:48:08 Formatting of this n ote might be different from the original. Patient discharged home following ERP eval. Air splint applied. Patient given all education and information regarding RICE therapy, splint use; and follow up importance as well as s/s of worsening condition. Pt verbalized understanding. Alert and ambulatory to pov. Evi Corona RN [facility] 2023-05-08 19:08:05 Formatting of this n ote might be different from the original. Pt presents with left ankle injury that occurred after she slipped off a ladder yesterday afternoon, she was attached to a lanyard, she landed sideways on left ankle. 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 She landed on her left ankle sideways. Denies any other injuries. She has been able to walk with difficulty. Reports swelling and tenderness all around ankle. Past Medical and Social History History reviewed. No pertinent past medical history. Tetanus received in last 5 years: Yes Social History Tobacco Use Smoking status: Never Smokeless tobacco: Never Vaping Use Vaping Use: Never used Substance Use Topics Alcohol use: Yes Comment: weekends only Drug use: Never Past Surgical History Past Surgical History: Procedure Laterality Date TUBAL LIGATION 2009 Medications Medications - No data to display Allergies No Known Allergies Review of Systems Review of Systems Constitutional: Negative. HENT: Negative. Eyes: Negative. Respiratory: Negative. Cardiovascular: Negative. Gastrointestinal: Negative. Genitourinary: Negative. Musculoskeletal: Positive for gait problem. Skin: Negative. Psychiatric/Behavioral: Negative. Endocrine: Endocrine negative Physical Exam BP (!) 149/92 | Pulse 76 | Temp 37.5 ?C (99.5 ?F) | Resp 16 | Ht 1.6 m (5' 3") | Wt 60.8 kg (134 lb) | SpO2 100% | BMI 23.74 kg/m? Physical Exam Vitals and nursing note reviewed. Constitutional: General: She is not in acute distress. Appearance: She is well-developed and normal weight. She is not ill-appearing. HENT: Head: Normocephalic and atraumatic. Right Ear: External ear normal. Left Ear: External ear normal. Nose: Nose normal. No congestion or rhinorrhea. Mouth/Throat: Pharynx: No oropharyngeal exudate or posterior oropharyngeal erythema. Eyes: General: Right eye: No discharge. Left eye: No discharge. Conjunctiva/sclera: Conjunctivae normal. Pupils: Pupils are equal, round, and reactive to light. Cardiovascular: Rate and Rhythm: Normal rate and regular rhythm. Heart sounds: Normal heart sounds. No murmur heard. No friction rub. Pulmonary: Effort: Pulmonary effort is normal. No respiratory distress. Breath sounds: Normal breath sounds. No stridor. No wheezing or rhonchi. Abdominal: General: Bowel sounds are normal. There is no distension. Palpations: Abdomen is soft. There is no mass. Tenderness: There is no abdominal tenderness. Hernia: No hernia is present. Musculoskeletal: General: Swelling and tenderness present. No deformity or signs of injury. Normal range of motion. Cervical back: Normal range of motion and neck supple. No rigidity or tenderness. Skin: General: Skin is warm. Capillary Refill: Capillary refill takes less than 2 seconds. Coloration: Skin is not jaundiced or pale. Findings: No bruising or erythema. Neurological: General: No focal deficit present. Mental Status: She is alert and oriented to person, place, and time. Cranial Nerves: No cranial nerve deficit. Sensory: No sensory deficit. Motor: No weakness. Coordination: Coordination normal. Psychiatric: Mood and Affect: Mood normal. Behavior: Behavior normal. Thought Content: Thought content normal. Judgment: Judgment normal. Labs and Studies Lab Results - No data to display XR ANKLE 3+ VW LEFT Preliminary Result EXAM: XR ANKLE 3+ VW LEFT HISTORY: ankle pain COMPARISON: None available. FINDINGS: Radiographs of the left ankle demonstrate no acute fracture or dislocation. The ankle mortise is congruent. An os peroneum is seen. Mild soft tissue swelling about the ankle is seen. A small ankle joint effusion is seen. IMPRESSION No acute bony abnormality. Soft tissue swelling with small ankle joint effusion. Preliminary Report Dictated by Resident: Genia Gage Orders and Treatments Orders Placed This Encounter Procedures XR ANKLE 3+ VW LEFT No orders of the defined types were placed in this encounter. Patient's Medications START taking these medications No medications on file CONTINUE taking these medications which have NOT CHANGED IBUPROFEN 600 MG TABLET Take 1 tablet by mouth every 6 (six) hours as needed for Pain (scale 4-6). IBUPROFEN 600 MG TABLET Take 1 tablet by mouth every 6 (six) hours as needed for Pain (scale 4-6). START taking Modified Medications as Prescribed No medications on file STOP taking these medications No medications on file Procedures Procedures MDM & Notes Patient was evaluated for an emergency medical condition related to Foot Pain (Left ankle ) . History and/or review of systems is limited by:History limited: None. Medical Decision Making 37 yo woman comes to the ED complaining of left ankle pain after she accidentally fell from a ladder a day ago. She landed on her left ankle sideways. Denies any other injuries. She has been able to walk with difficulty. Reports swelling and tenderness all around ankle. DDx: ankle sprain/ ankle pain Problems Addressed: Acute left ankle pain: acute illness or injury Amount and/or Complexity of Data Reviewed Radiology: ordered and independent interpretation performed. Decision-making details documented in ED Course. Discussion of management or test interpretation with external provider(s): No acute fracture Likely sprain Place on air cast, tylenol/motrin as needed for pain F/u with Ortho Return to the ED if worsening of symptoms. Risk OTC drugs. Diagnosis/Impression as of 05/08/232034 Acute left ankle pain Case discussed with: none Barriers & Social Determinants of Healthcare: Limitations to patient care and compliance: none. Assessment: David Ellis is a 37 year old female presenting for single complaint(s) listed below and mentioned within the note. The patient has acute condition(s). Follow up with providers listed below for further evaluation and management. Return precautions given if symptoms worsen as documented in the discharge instructions. History, physical exam findings, results of visit, differential diagnosis, medication regimens and plan of future care have been considered. Additional MDM may be found in the ED course. Differential diagnosis considered and final disposition made based on information gathered during evaluation and may not be completely ruled out or specifically listed. Vital signs were rechecked before final disposition and determined to be stable. Diagnoses ICD-10-CM 1. Acute left ankle pain M25.572 Disposition and Condition ED Disposition ED Disposition Disch - Home Condition Stable Comment -- Patient's Medications START taking these medications No medications on file CONTINUE taking these medications which have NOT CHANGED IBUPROFEN 600 MG TABLET Take 1 tablet by mouth every 6 (six) hours as needed for Pain (scale 4-6). IBUPROFEN 600 MG TABLET Take 1 tablet by mouth every 6 (six) hours as needed for Pain (scale 4-6). START taking Modified Medications as Prescribed No medications on file STOP taking these medications No medications on file Jakub Polo MD, FACEP, FAAEM [employer] [facility] #[id number] Jakub Polo MD 05/08/232036 [facility] 2023-04-13 14:17:08 Formatting of this n ote might be different from the original. Pt given printed and verbal discharge instructions regarding shoulder strain left, encouraged hydration. Prescriptions provided Discussed ibuprofen and to take with food to avoid GI distress. Pt verbalized understanding of instructions, pt awake alert oriented, resp reg unlabored, skin w/d, color appropriate for race, moves all ext well,pt encouraged to follow up with pcp. Advised to seek medical attention for new/prolonged/worsening of symptoms. Awake, alert oriented, resp reg unlabored, skin w/d, pt leaving amb with steady gait, in no apparent distress. Amador Hines RN [facility] 2023-04-13 11:41:59 Formatting of this n ote might be different from the original. Left shoulder pain x3 days after carrying 55# sacks at work Nhi Haq RN [facility]
--- NOTE | 2024-07-22 12:19 | ER ---
Nurse's Notes [facility] Name: Tiffanie Goldman Age: 38 yrs Sex: Female : 1985 Arrival Date: 07/22/2024 Time: 11:08 Bed Waiting Private MD: Diagnosis: ED Course: 07/22 11:10 Patient arrived in ED. ra3 11:50 Daron Hernandez MD is Attending Physician. rt 11:51 Patient's name was called from ER lobby. No response. Unable to locate patient. Will tm6 disposition as left without being seen by a provider. 12:04 Patient's name was called from ER lobby. No response. Unable to locate patient. Will tm6 disposition as left without being seen by a provider. 12:16 Patient's name was called from ER lobby. No response. Unable to locate patient. Will tm6 disposition as left without being seen by a provider. Administered Medications: No medications were administered Outcome: 12:18 Patient left the ED. tm6 Signatures: Daron Hernandez MD MD rt Brennan Tyler RN RN tm6 Frances Hernandez ra3
== END 2024-07-22 12:18 | disposition left against medical advice (07) ==
LOC: ER 11:08
DX: Z02.9 Encounter for administrative examinations, unspecified (principal)